=== PATIENT | female | born 1935 | race Caucasian/White ===

== ENCOUNTER 2019-03-09 10:55 | Inpatient (IN) | payer OTHER ==
--- NOTE | 2019-03-09 11:10 | PDOC ---
Attending Attestation - Resident Resident Name: Sandra Boggs - ED Attending Attestation I have performed the following: I have examined & evaluated the patient, The case was reviewed & discussed with the resident, I agree w/resident's findings & plan, Exceptions are as noted - HPI HPI: 03/09/19 12:53 Ms Whaley is an 83 yo F presenting to the ER with family due to unwitnessed fall Pt has a h/o HLD and Dementia (therefore history is per pt daughter and aid) Pt was noted to have a bruise on the forehead She apparently had a fall two days ago (pt is ambulatory and completes ADL's with the assistance of her daily home health aide) Pt was also noted by family to have a facial droop and generalized weakness 03/09/19 13:00 - Physicial Exam PE: 03/09/19 13:01 GENERAL: The patient is sleeping but arousable, answers questions but is intermittently confused, pt is more weak than previously. ENT: Ears normal, nares patent, oropharynx clear without exudates. Moist mucous membranes. NECK: Normal range of motion, supple LUNGS: Breath sounds equal, clear to auscultation bilaterally. No wheezes, and no crackles. HEART:Regular rate and rhythm, normal S1 and S2 without murmur ABDOMEN: Soft, nontender, normoactive bowel sounds. EXTREMITIES: right knee pain NEUROLOGICAL: Pt is arousable, speech is clear and does not sound slurred, moving independently, right leg painful SKIN: no rashes noted - Medical Decision Making 03/09/19 13:25 NSR rate of 96 bpm, LAD, no st elevation or depression, flattened t waves 03/09/19 13:27 Laboratory Tests 03/09/19 03/09/19 03/09/19 11:20 11:20 11:20 WBC 7.0 Hgb 15.1 Hct 46.2 H D Plt Count 196 INR 1.10 H Creatine Kinase 681 H Creatine Kinase Index 0.9 CK-MB (CK-2) 6.7 H Troponin I < 0.02 CT: no acute findings Will plan to admit
--- NOTE | 2019-03-09 11:19 | PDOC ---
History of Present Illness - General Chief Complaint: Lethargy Stated Complaint: LETHARGY Time Seen by Provider: 03/09/19 11:06 - History of Present Illness Initial Comments: 03/09/19 11:32 The patient is an 83 y/o female with a PMHx of HLD and Dementia who presents with daughter and home health aide following a fall. Daughter at beside provides majority of history. States home health aide noticed a bruise on the patient's forehead today and patient subsequently reported she fell on . At baseline patient is ambulatory and completes ADL's with the assistance of her daily home health aide. At baseline patient generally oriented to self and intermittently oriented to time and place. Daughter also notes patient has slurred speech, first noticed on . NKDA Surgical: ? cholecystectomy As per daughter (health care decisionmaker) @ bedside, patient is FULL CODE. Past History - Past Medical History Allergies/Adverse Reactions: Allergies Allergy/AdvReac Type Severity Reaction Status Date / Time No Known Allergies Allergy Verified 03/09/19 11:11 Home Medications: Ambulatory Orders Memantine HCl [Namenda -] 10 mg PO BID 03/09/19 Simvastatin 10 mg PO DAILY 03/09/19 COPD: No Dementia: Yes GI Disorders: Yes (gerd) HTN: Yes Hypercholesterolemia: Yes - Surgical History Cholecystectomy: Yes - Immunization History Immunization Up to Date: Yes - Suicide/Smoking/Psychosocial Hx Smoking History: Never smoked Have you smoked in the past 12 months: No If you are a former smoker, when did you quit?: 50 years ago Hx Alcohol Use: No Drug/Substance Use Hx: No Substance Use Type: None Review of Systems - Review of Systems Able to Perform ROS?: No (clinical condition) *Physical Exam - Vital Signs Last Vital Signs Temp Pulse Resp BP Pulse Ox 97 F L 100 H 18 113/83 100 03/09/19 11:00 03/09/19 11:00 03/09/19 11:00 03/09/19 11:00 03/09/19 11:00 - Physical Exam General Appearance: Yes: Nourished, Appropriately Dressed HEENT: positive: Normal Voice, Hearing Grossly Normal Neck: positive: Trachea midline, Supple Respiratory/Chest: positive: Lungs Clear, Normal Breath Sounds. negative: Labored Respiration, Wheezing Cardiovascular: positive: S1, S2. negative: JVD Vascular Pulses: Dorsalis-Pedis (R): 2+, Doralis-Pedis (L): 2+ Gastrointestinal/Abdominal: positive: Normal Bowel Sounds, Flat Extremity: positive: Normal Capillary Refill, Normal Inspection, Other (Full ROM of B/L UE and LE) Integumentary: positive: Normal Color, Dry, Warm Heart Score/ECG Review - ECG Impressions Comment:: 03/09/19 12:53 NSR HR 96, no GONZALEZ/STD/TWI; flattened T waves in inferior leads + L anterior fasciular block c/w previous ECG dated 06/01/2016 ED Treatment Course - LABORATORY CBC & Chemistry Diagram: 03/09/19 11:20 03/09/19 11:20 - ADDITIONAL ORDERS Additional order review: Laboratory Results 03/09/19 11:13 POC Glucometer 121 03/09/19 11:13 POC Glucometer 121 Medical Decision Making - Medical Decision Making 03/09/19 11:36 83 y/o female s/p unwitnessed fall. Mildly tachycardic (HR 100) other VS unremarkable PE significant for slurred speech (new deficit) - will obtain Head CT to r/o CVA (patient outside window for tPA) also consider infectious, metabolic, cardiac fall etiology. CBC, CMP, Troponin, EKG, UA/Urine Cx. Reassess. 03/09/19 12:[address], C-spine negative ECG shows no acute ischemic change as documented in ECG section of EMR 03/09/19 12:39 CBC, CMP unremarkable UA clean Patient reassessed @ bedside, slurred speech resolved, as per daughter patient @ baseline; c/o RLE pain, patient points to R femur, will obtain R knee, R femur and Hip/Pelvis XR Patient requires admission for further evaluation including possible TIA. Case d /w Dr. Candelario, will admit. *DC/Admit/Observation/Transfer Diagnosis at time of Disposition: Fall - Discharge Dispostion Condition at time of disposition: Fair Decision to Admit order: Yes - Referrals - Patient Instructions - Post Discharge Activity
[2019-03-09 11:31] VITALS: BMI 27.4
--- NOTE | 2019-03-09 11:38 | PDOC ---
NIH Stroke Scale - Last Known Well Date/Time & Onset Date Last Known Well: 03/07/19 - Initial Evaluation Level of consciousness: Alert Ask patient the month and their age: Answers both correctly Ask patient to open & close eyes; make fist and let go: Obeys both correctly Best gaze (horizontal eye movement): Normal Visual field testing: No visual field loss Facial paresis (Show teeth/raise eyebrows/close eyes tight): Normal symmetrical movement Motor Function: Left Arm: Normal Motor Function: Right Arm: Normal (extends arm 90 (or 45) degrees for 10 seconds without drift Motor Function: Left Leg: Normal (extends leg 30 degrees for 5 seconds without drift) Motor Function: Right Leg: Normal (extends leg 30 degrees for 5 seconds without drift) Limb Ataxia: No ataxia Sensory(Use pinprick test arms,legs,trunk,face/side to side): Normal Best language (Describe picture, name items, read sentences): No Aphasia Dysarthria (read several words): Mild to moderate slurring of words Extinction and Inattention: No abnormality - Total Score NIH Stroke Scale Score: 1
[2019-03-09 11:43] LABS: BASO % 0.4 % (0-2.0); EOS % 1.8 % (0-4.5); HEMATOCRIT 46.2 % (32.4-45.2); HEMOGLOBIN 15.1 GM/dL (10.7-15.3); LYMPH % 22.1 % (8-40); MCH 28.3 pg (25.7-33.7); MCHC 32.8 g/dl (32.0-36.0); MEAN CELL VOLUME 86.1 fl (80-96); NEUT % 64.7 % (42.8-82.8); PLATELET COUNT 196 K/MM3 (134-434); RBC 5.36 M/mm3 (3.60-5.2); RDW 15.1 % (11.6-15.6)
[2019-03-09 12:09] LABS: ALBUMIN 3.6 g/dl (3.4-5.0); BILIRUBIN,TOTAL 1.2 mg/dL (0.2-1); BLOOD UREA NITROGEN 15.7 mg/dL (7-18); CREATININE 0.9 mg/dL (0.55-1.3); POTASSIUM 4.5 mmol/L (3.5-5.1); TOT PROT 7.4 g/dl (6.4-8.2)
[2019-03-09 12:13] LABS: INR 1.1 (0.83-1.09)
[2019-03-09 12:15] LABS: ACTIVATED PTT 31.1 SECONDS (25.2-36.5)
[2019-03-09 12:17] LABS: URINE APPEARANCE CLEAR; URINE BILIRUBIN NEGATIVE (NEGATIVE); URINE COLOR YELLOW; URINE GLUCOSE (UA) NEGATIVE (NEGATIVE); URINE KETONE NEGATIVE (NEGATIVE); URINE LEUK ESTERASE NEGATIVE (NEGATIVE); URINE NITRITE NEGATIVE (NEGATIVE); URINE PROTEIN NEGATIVE (NEGATIVE); URINE UROBILINOGEN 0.2 mg/dL (0.2-1.0)
[2019-03-09] MEDS ORDERED: SODIUM CHLORIDE 0.9% 500 ML INFUS.BAG IV ONE (12:38)
[2019-03-09] MEDS ORDERED: morphine CARPU-JECT 2 MG/1 ML DISP.SYRIN IVPUSH ONE (12:46)
[2019-03-09] MEDS ORDERED: MORPHINE SULFATE 2 MG/ML VIAL ONE (13:04)
[2019-03-09] MEDS ORDERED: ROSUVASTATIN CA 10 MG TABLET (FP) PO SCH ×2 (16:00→22:00)
--- NOTE | 2019-03-09 16:06 | HP ---
CHIEF COMPLAINT: fall in home and slurring of speech for one day. PCP:out side of community HISTORY OF PRESENT ILLNESS: The patient is an 83 y/o female with a PMHx of HLD and Dementia who presents with daughter and home health aide following a fall. Daughter at beside provides majority of history. States home health aide noticed a bruise on the patient's forehead today and patient subsequently reported she fell on . At baseline patient is ambulatory and completes ADL's with the assistance of her daily home health aide. In er daughter also c/o that mom is having pain in her rt leg kirit thigh area. No bruise noted. ER course was notable for: (1)h/o fall (2)slurring of speech (3)h/o dementia Recent Travel:none PAST MEDICAL HISTORY: The patient is an 83 y/o female with a PMHx of HLD and Dementia. PAST SURGICAL HISTORY: none Social History: Smoking:none Alcohol:none Drugs: none Allergies No Known Allergies Allergy (Verified 03/09/19 11:11) HOME MEDICATIONS: Home Medications Medication Instructions Recorded Rosuvastatin Calcium [Crestor] 10 mg PO DAILY 08/19/14 Memantine HCl [Namenda -] 10 mg PO DAILY 03/09/19 REVIEW OF SYSTEMS done with daughter. CONSTITUTIONAL: Absent: fever, chills, diaphoresis, generalized weakness, malaise, loss of appetite, weight change HEENT: Absent: rhinorrhea, nasal congestion, throat pain, throat swelling, difficulty swallowing, mouth swelling, ear pain, eye pain, visual changes CARDIOVASCULAR: Absent: chest pain, syncope, palpitations, irregular heart rate, lightheadedness , peripheral edema RESPIRATORY: Absent: cough, shortness of breath, dyspnea with exertion, orthopnea, wheezing, stridor, hemoptysis GASTROINTESTINAL: Absent: abdominal pain, abdominal distension, nausea, vomiting, diarrhea, constipation, melena, hematochezia GENITOURINARY: Absent: dysuria, frequency, urgency, hesitancy, hematuria, flank pain, genital pain MUSCULOSKELETAL: PAIN IN HER RT THIGH AREA. SKIN: Absent: rash, itching, pallor HEMATOLOGIC/IMMUNOLOGIC: Absent: easy bleeding, easy bruising, lymphadenopathy, frequent infections ENDOCRINE: Absent: unexplained weight gain, unexplained weight loss, heat intolerance, cold intolerance NEUROLOGIC: Absent: headache, focal weakness or paresthesias, dizziness, unsteady gait, seizure, mental status changes, bladder or bowel incontinence PSYCHIATRIC: DEMENTIA PHYSICAL EXAMINATION Vital Signs - 24 hr 03/09/19 03/09/19 03/09/19 11:00 11:29 15:44 Temperature 97 F L Pulse Rate 100 H Pulse Rate [ 89 Left Radial] Respiratory 18 18 Rate Blood Pressure 113/83 Blood Pressure 113/70 [Left Arm] O2 Sat by Pulse 100 98 96 Oximetry (%) GENERAL: Awake, alert, and in no acute distress. HEAD: Normal with no signs of trauma. EYES: Pupils equal, round and reactive to light, extraocular movements intact, sclera anicteric, conjunctiva clear. No lid lag. EARS, NOSE, THROAT: Ears normal, nares patent, oropharynx clear without exudates. Moist mucous membranes. NECK: Normal range of motion, supple without lymphadenopathy, JVD, or masses. LUNGS: Breath sounds equal, clear to auscultation bilaterally. No wheezes, and no crackles. No accessory muscle use. HEART: Regular rate and rhythm, normal S1 and S2 without murmur, rub or gallop. ABDOMEN: Soft, nontender, not distended, normoactive bowel sounds, no guarding, no rebound, no masses. No hepatomegaly or splenomegaly. MUSCULOSKELETAL: Normal range of motion at all joints. No bony deformities or tenderness. No CVA tenderness. UPPER EXTREMITIES: 2+ pulses, warm, well-perfused. No cyanosis. No clubbing. No peripheral edema. LOWER EXTREMITIES: 2+ pulses, warm, well-perfused. No calf tenderness. No peripheral edema. NEUROLOGICAL: she is confused but moving all extremities and at time responds by smiling at you. she comprehend the commands by daughter in faroese . Laboratory Results - last 24 hr 03/09/19 03/09/19 03/09/19 11:13 11:20 11:20 WBC 7.0 RBC 5.36 H Hgb 15.1 Hct 46.2 H D MCV 86.1 MCH 28.3 D MCHC 32.8 RDW 15.1 D Plt Count 196 MPV 10.0 Absolute Neuts (auto) 4.5 Neutrophils % 64.7 Lymphocytes % 22.1 Monocytes % 11.0 H Eosinophils % 1.8 Basophils % 0.4 Nucleated RBC % 0 PT with INR INR PTT (Actin FS) Sodium Potassium Chloride Carbon Dioxide Anion Gap BUN Creatinine Est GFR (CKD-EPI)AfAm Est GFR (CKD-EPI)NonAf POC Glucometer 121 Random Glucose Calcium Magnesium Total Bilirubin AST ALT Alkaline Phosphatase Creatine Kinase 681 H Creatine Kinase Index 0.9 CK-MB (CK-2) 6.7 H Troponin I < 0.02 Total Protein Albumin Urine Color Urine Appearance Urine pH Ur Specific [place] Urine Protein Urine Glucose (UA) Urine Ketones Urine Blood Urine Nitrite Urine Bilirubin Urine Urobilinogen Ur Leukocyte Esterase 03/09/19 03/09/19 03/09/19 11:20 11:20 11:20 WBC RBC Hgb Hct MCV MCH MCHC RDW Plt Count MPV Absolute Neuts (auto) Neutrophils % Lymphocytes % Monocytes % Eosinophils % Basophils % Nucleated RBC % PT with INR 13.00 INR 1.10 H PTT (Actin FS) 31.1 Sodium 139 Potassium 4.5 Chloride 106 Carbon Dioxide 27 Anion Gap 6 L BUN 15.7 Creatinine 0.9 Est GFR (CKD-EPI)AfAm 67.57 Est GFR (CKD-EPI)NonAf 58.30 POC Glucometer Random Glucose 107 H Calcium 9.0 Magnesium 2.4 Total Bilirubin 1.2 H AST 48 H ALT 34 Alkaline Phosphatase 74 Creatine Kinase Creatine Kinase Index CK-MB (CK-2) Troponin I Total Protein 7.4 Albumin 3.6 Urine Color Urine Appearance Urine pH Ur Specific [place] Urine Protein Urine Glucose (UA) Urine Ketones Urine Blood Urine Nitrite Urine Bilirubin Urine Urobilinogen Ur Leukocyte Esterase 03/09/19 12:07 WBC RBC Hgb Hct MCV MCH MCHC RDW Plt Count MPV Absolute Neuts (auto) Neutrophils % Lymphocytes % Monocytes % Eosinophils % Basophils % Nucleated RBC % PT with INR INR PTT (Actin FS) Sodium Potassium Chloride Carbon Dioxide Anion Gap BUN Creatinine Est GFR (CKD-EPI)AfAm Est GFR (CKD-EPI)NonAf POC Glucometer Random Glucose Calcium Magnesium Total Bilirubin AST ALT Alkaline Phosphatase Creatine Kinase Creatine Kinase Index CK-MB (CK-2) Troponin I Total Protein Albumin Urine Color Yellow Urine Appearance Clear Urine pH 7.0 Ur Specific [place] 1.012 Urine Protein Negative Urine Glucose (UA) Negative Urine Ketones Negative Urine Blood Negative Urine Nitrite Negative Urine Bilirubin Negative Urine Urobilinogen 0.2 Ur Leukocyte Esterase Negative ASSESSMENT/PLAN: !-Fall in home possible I reviewed all the x rays and no fx noted . since she has pain in her rt thigh area will order venous sono of legs r/odvt. add tylenol prn for pain. ordered physical therapy. d/w daughter for stay in hospital for observations. 2-Altered mental status slurring of speech, she received a dose of morphine in er and that is making difficult to asses her mental status. I have ordered MRI of brain and neuro consult by dr Shell 3-Dementia continue namenda 3- High lipids continue lipitor DVt prohylaxis with loveox and ordered pt consult. Visit type - Emergency Visit Emergency Visit: Yes ED Registration Date: 03/09/19 Care time: The patient presented to the Emergency Department on the above date and was hospitalized for further evaluation of their emergent condition. - New Patient This patient is new to me today: Yes Date on this admission: 03/09/19 - Critical Care Critical Care patient: No
--- NOTE | 2019-03-10 09:13 | PN ---
Teaching Attending Note Name of Resident: Soniya Barbosa ATTENDING PHYSICIAN STATEMENT I saw and evaluated the patient. I reviewed the resident's note and discussed the case with the resident. I agree with the resident's findings and plan as documented. SUBJECTIVE: No new complainyts OBJECTIVE: Vital Signs Period Temp Pulse Resp BP Sys/Paez Pulse Ox Last 24 Hr 97 F-99.0 F 81-106 17-20 105-132/61-88 95-100 Elderly F lethargic conversing with daughter in Romanian HEENT: Mm moist no external trauma NECK: No JVd No Bruit CHEST: CTA B/L CVS: S1S2 R no m/g/r ABD: No distention, non tender Bs + EXT: trace edema, Pulses + BOOKING PRIZER: alert but demented grossly non focal exam CBC, BMP 03/09/19 11:20 03/09/19 11:20 Active Medications Acetaminophen (Tylenol -) 500 mg PO Q6H PRN PRN Reason: PAIN Enoxaparin Sodium (Lovenox -) 40 mg SQ DAILY SANTOSH Memantine (Namenda -) 10 mg PO DAILY SANTOSH Rosuvastatin Calcium (Crestor -) 10 mg PO HS SANTOSH Last Admin: 03/09/19 23:24 Dose: 10 mg ASSESSMENT AND PLAN:83 yrs old F with advanced Dementia, poor GAIT BIB daughter for evaluation of fall and lethargy Problem List - Problems (1) Fall Assessment/Plan: most likely mechanical , considering unwitnessed fall Neurology recommended cardiac w/u F/U Neurology recommondation, PT evaluation Code(s): W19.XXXA - UNSPECIFIED FALL, INITIAL ENCOUNTER (2) Hypercholesterolemia Assessment/Plan: Cont Statin Code(s): E78.0 - PURE HYPERCHOLESTEROLEMIA * DO NOT USE * (3) Dementia Assessment/Plan: No active issue Code(s): F03.90 - UNSPECIFIED DEMENTIA WITHOUT BEHAVIORAL DISTURBANCE (4) Altered mental state Assessment/Plan: Low grade fever , confusion, UA and U culture -ve, initial CBC, BMP are un remarkable, IV NS 100 CC/HR (border line low BP Fever w/u rpt CBC, BMP, CK, Blood cultures IV Hydration If TWBC or clinical sign of sepsis Start empiric Ceftriaxone. Discussed withthe daughter Code(s): R41.82 - ALTERED MENTAL STATUS, UNSPECIFIED
--- NOTE | 2019-03-10 10:47 | CONSULT ---
Consult - text type - Consultation Consultation Note: Neurology HISTORY OF PRESENT ILLNESS: The patient is an 83 y/o female with a PMHx of HLD and Dementia who presents with daughter and home health aide following a fall. Daughter at beside provides majority of history. Stated home health aide noticed a bruise on the patient's forehead on day of admission and patient subsequently reported she fell on . At baseline patient is ambulatory and completes ADL's with the assistance of her daily home health aide. In ER daughter also c/o that mom is having pain in her rt leg kirit thigh area. No bruise noted. Head CT completed , chronic microvascular dieases with no acute gross changes, multilevel degenerative disc disease. Xray of pelvis, knee, and leg completed with no acute changes. Patient on Simvastatin 10mg at home. Somnolent this a.m. but arousable, MRI brain has been ordered and in agreement with this. Awaiting completion of imaging. Physical therapy may be of benefit as well. Recent Travel:none PAST MEDICAL HISTORY: As above PAST SURGICAL HISTORY: none Social History: Smoking:none Alcohol:none Drugs: none Family: HTN Allergies No Known Allergies Allergy (Verified 03/09/19 11:11) HOME MEDICATIONS: Ambulatory Orders Memantine HCl [Namenda -] 10 mg PO BID 03/09/19 Simvastatin 10 mg PO DAILY 03/09/19 REVIEW OF SYSTEMS done with daughter. CONSTITUTIONAL: Absent: fever, chills, diaphoresis, generalized weakness, malaise, loss of appetite, weight change HEENT: Absent: rhinorrhea, nasal congestion, throat pain, throat swelling, difficulty swallowing, mouth swelling, ear pain, eye pain, visual changes CARDIOVASCULAR: Absent: chest pain, syncope, palpitations, irregular heart rate, lightheadedness , peripheral edema RESPIRATORY: Absent: cough, shortness of breath, dyspnea with exertion, orthopnea, wheezing, stridor, hemoptysis GASTROINTESTINAL: Absent: abdominal pain, abdominal distension, nausea, vomiting, diarrhea, constipation, melena, hematochezia GENITOURINARY: Absent: dysuria, frequency, urgency, hesitancy, hematuria, flank pain, genital pain MUSCULOSKELETAL: PAIN IN HER RT THIGH AREA. SKIN: Absent: rash, itching, pallor HEMATOLOGIC/IMMUNOLOGIC: Absent: easy bleeding, easy bruising, lymphadenopathy, frequent infections ENDOCRINE: Absent: unexplained weight gain, unexplained weight loss, heat intolerance, cold intolerance NEUROLOGIC: Absent: headache, focal weakness or paresthesias, dizziness, unsteady gait, seizure, mental status changes, bladder or bowel incontinence PSYCHIATRIC: DEMENTIA PHYSICAL EXAMINATION Vital Signs Period Temp Pulse Resp BP Sys/Paez Pulse Ox Last 24 Hr 97 F-99.0 F 81-106 17-20 105-132/61-88 95-100 GENERAL: Awake, alert, and in no acute distress. HEAD: Normal with no signs of trauma. EYES: Pupils equal, round and reactive to light, extraocular movements intact, sclera anicteric, conjunctiva clear. No lid lag. EARS, NOSE, THROAT: Ears normal, nares patent, oropharynx clear without exudates. Moist mucous membranes. NECK: Normal range of motion, supple without lymphadenopathy, JVD, or masses. LUNGS: Breath sounds equal, clear to auscultation bilaterally. No wheezes, and no crackles. No accessory muscle use. HEART: Regular rate and rhythm, normal S1 and S2 without murmur, rub or gallop. ABDOMEN: Soft, nontender, not distended, normoactive bowel sounds, no guarding, no rebound, no masses. No hepatomegaly or splenomegaly. MUSCULOSKELETAL: Normal range of motion at all joints. No bony deformities or tenderness. No CVA tenderness. UPPER EXTREMITIES: 2+ pulses, warm, well-perfused. No cyanosis. No clubbing. No peripheral edema. LOWER EXTREMITIES: 2+ pulses, warm, well-perfused. No calf tenderness. No peripheral edema. NEUROLOGICAL: she is confused but moving all extremities and at time responds by smiling at you. she comprehend the commands by daughter in indonesian . CBCD WBC 7.0 K/mm3 (4.0-10.0) 03/09/19 11:20 RBC 5.36 M/mm3 (3.60-5.2) H 03/09/19 11:20 Hgb 15.1 GM/dL (10.7-15.3) 03/09/19 11:20 Hct 46.2 % (32.4-45.2) H D 03/09/19 11:20 MCV 86.1 fl (80-96) 03/09/19 11:20 MCHC 32.8 g/dl (32.0-36.0) 03/09/19 11:20 RDW 15.1 % (11.6-15.6) D 03/09/19 11:20 Plt Count 196 K/MM3 (134-434) 03/09/19 11:20 MPV 10.0 fl (7.5-11.1) 03/09/19 11:20 CMP Sodium 139 mmol/L (136-145) 03/09/19 11:20 Potassium 4.5 mmol/L (3.5-5.1) 03/09/19 11:20 Chloride 106 mmol/L (98-107) 03/09/19 11:20 Carbon Dioxide 27 mmol/L (21-32) 03/09/19 11:20 Anion Gap 6 MMOL/L (8-16) L 03/09/19 11:20 BUN 15.7 mg/dL (7-18) 03/09/19 11:20 Creatinine 0.9 mg/dL (0.55-1.3) 03/09/19 11:20 Random Glucose 107 mg/dL (74-106) H 03/09/19 11:20 Calcium 9.0 mg/dL (8.5-10.1) 03/09/19 11:20 Total Bilirubin 1.2 mg/dL (0.2-1) H 03/09/19 11:20 AST 48 U/L (15-37) H 03/09/19 11:20 ALT 34 U/L (13-61) 03/09/19 11:20 Alkaline Phosphatase 74 U/L (45-117) 03/09/19 11:20 Total Protein 7.4 g/dl (6.4-8.2) 03/09/19 11:20 Albumin 3.6 g/dl (3.4-5.0) 03/09/19 11:20 CARDIAC ENZYMES Creatine Kinase 681 U/L (26-192) H 03/09/19 11:20 Troponin I < 0.02 ng/ml (0.00-0.05) 03/09/19 11:20 ASSESSMENT/PLAN: The patient is an 83 y/o female with a PMHx of HLD and Dementia who presents with daughter and home health aide following a fall. Daughter at beside provides majority of history. Stated home health aide noticed a bruise on the patient's forehead on day of admission and patient subsequently reported she fell on . At baseline patient is ambulatory and completes ADL's with the assistance of her daily home health aide. In ER daughter also c/o that mom is having pain in her rt leg kirit thigh area. No bruise noted. Head CT completed , chronic microvascular dieases with no acute gross changes, multilevel degenerative disc disease. Xray of pelvis, knee, and leg completed with no acute changes. Patient on Simvastatin 10mg at home. Somnolent this a.m. but arousable, MRI brain has been ordered and in agreement with this. Awaiting completion of imaging. Physical therapy may be of benefit as well. can continue memantine 10 mg twice a day as prescribed at home. Cardiac workup should be considered. Fall precautions. DVT prophylaxis.
[2019-03-10] MEDS: MEMANTINE HCL 10 MG TABLET (FP) PO SCH (12:47)
[2019-03-10] MEDS: ENOXAPARIN NA (PORCINE) 40 MG/0.4 ML DISP.SYRIN SQ SCH (12:48)
--- NOTE | 2019-03-10 14:00 | PN ---
Physical Exam: SUBJECTIVE: Patient seen and examined this AM. No new complaints. No acute events overnight. OBJECTIVE: Vital Signs Period Temp Pulse Resp BP Sys/Paez Pulse Ox Last 24 Hr 97.8 F-99.0 F 81-106 17-18 105-132/61-88 95-99 GENERAL: Awake, NAD HEAD: NCAT EYES: PERRL, EOMI ENT: moist mucous membranes. NECK: Supple LUNGS: clear to auscultation bilaterally, no wheezes, no crackles HEART: Regular rate and rhythm, S1, S2 without murmur ABDOMEN: Soft, nontender, nondistended, + bowel sounds, no guarding, no rebound EXTREMITIES: no edema. NEUROLOGICAL: Cranial nerves II through XII grossly intact. SKIN: Warm, dry Laboratory Last Values WBC 7.0 K/mm3 (4.0-10.0) 03/09/19 11:20 RBC 5.36 M/mm3 (3.60-5.2) H 03/09/19 11:20 Hgb 15.1 GM/dL (10.7-15.3) 03/09/19 11:20 Hct 46.2 % (32.4-45.2) H D 03/09/19 11:20 MCV 86.1 fl (80-96) 03/09/19 11:20 MCH 28.3 pg (25.7-33.7) D 03/09/19 11:20 MCHC 32.8 g/dl (32.0-36.0) 03/09/19 11:20 RDW 15.1 % (11.6-15.6) D 03/09/19 11:20 Plt Count 196 K/MM3 (134-434) 03/09/19 11:20 MPV 10.0 fl (7.5-11.1) 03/09/19 11:20 Absolute Neuts (auto) 4.5 K/mm3 (1.5-8.0) 03/09/19 11:20 Neutrophils % 64.7 % (42.8-82.8) 03/09/19 11:20 Lymphocytes % 22.1 % (8-40) 03/09/19 11:20 Monocytes % 11.0 % (3.8-10.2) H 03/09/19 11:20 Eosinophils % 1.8 % (0-4.5) 03/09/19 11:20 Basophils % 0.4 % (0-2.0) 03/09/19 11:20 Nucleated RBC % 0 % (0-0) 03/09/19 11:20 PT with INR 13.00 SEC (9.7-13.0) 03/09/19 11:20 INR 1.10 (0.83-1.09) H 03/09/19 11:20 PTT (Actin FS) 31.1 SECONDS (25.2-36.5) 03/09/19 11:20 Sodium 139 mmol/L (136-145) 03/09/19 11:20 Potassium 4.5 mmol/L (3.5-5.1) 03/09/19 11:20 Chloride 106 mmol/L (98-107) 03/09/19 11:20 Carbon Dioxide 27 mmol/L (21-32) 03/09/19 11:20 Anion Gap 6 MMOL/L (8-16) L 03/09/19 11:20 BUN 15.7 mg/dL (7-18) 03/09/19 11:20 Creatinine 0.9 mg/dL (0.55-1.3) 03/09/19 11:20 Est GFR (CKD-EPI)AfAm 67.57 03/09/19 11:20 Est GFR (CKD-EPI)NonAf 58.30 03/09/19 11:20 POC Glucometer 121 UNITS (80-120) 03/09/19 11:13 Random Glucose 107 mg/dL (74-106) H 03/09/19 11:20 Calcium 9.0 mg/dL (8.5-10.1) 03/09/19 11:20 Magnesium 2.4 mg/dL (1.8-2.4) 03/09/19 11:20 Total Bilirubin 1.2 mg/dL (0.2-1) H 03/09/19 11:20 AST 48 U/L (15-37) H 03/09/19 11:20 ALT 34 U/L (13-61) 03/09/19 11:20 Alkaline Phosphatase 74 U/L (45-117) 03/09/19 11:20 Creatine Kinase 681 U/L (26-192) H 03/09/19 11:20 Creatine Kinase Index 0.9 % (0.0-5.0) 03/09/19 11:20 CK-MB (CK-2) 6.7 ng/mL (0.5-3.6) H 03/09/19 11:20 Troponin I < 0.02 ng/ml (0.00-0.05) 03/09/19 11:20 Total Protein 7.4 g/dl (6.4-8.2) 03/09/19 11:20 Albumin 3.6 g/dl (3.4-5.0) 03/09/19 11:20 Urine Color Yellow 03/09/19 12:07 Urine Appearance Clear 03/09/19 12:07 Urine pH 7.0 (5.0-8.0) 03/09/19 12:07 Ur Specific Scribner 1.012 (1.010-1.035) 03/09/19 12:07 Urine Protein Negative (NEGATIVE) 03/09/19 12:07 Urine Glucose (UA) Negative (NEGATIVE) 03/09/19 12:07 Urine Ketones Negative (NEGATIVE) 03/09/19 12:07 Urine Blood Negative (NEGATIVE) 03/09/19 12:07 Urine Nitrite Negative (NEGATIVE) 03/09/19 12:07 Urine Bilirubin Negative (NEGATIVE) 03/09/19 12:07 Urine Urobilinogen 0.2 mg/dL (0.2-1.0) 03/09/19 12:07 Ur Leukocyte Esterase Negative (NEGATIVE) 03/09/19 12:07 Microbiology 03/09/19 12:07 Urine - Urine - Catheterized Urine Culture - Final NO GROWTH OBTAINED Active Medications Acetaminophen (Tylenol -) 500 mg PO Q6H PRN PRN Reason: PAIN Enoxaparin Sodium (Lovenox -) 40 mg SQ DAILY [facility] Last Admin: 03/10/19 12:48 Dose: 40 mg Memantine (Namenda -) 10 mg PO DAILY [facility] Last Admin: 03/10/19 12:47 Dose: 10 mg Rosuvastatin Calcium (Crestor -) 10 mg PO HS [facility] Last Admin: 03/09/19 23:24 Dose: 10 mg ASSESSMENT/PLAN: 83 y/o F with PMHx of HLD and Dementia presents after a fall. #Unwitnessed Fall -Likely mechanical -Imaging noted does not reveal any fx; RLE DUPLEX negative for DVT -Fall/Seizure precautions -Physical therapy -Analgesia via Acetaminophen -Check Orthostatics #Dementia -As per EMR, patient also presented with AMS + Speech slurring -Brain MRI without contrast pending -Neurology (Dr. Shell) consulted, appreciate rec's -Continue home dose Memantine #Dyslipidemia -Statin #FEN -No standing fluids -Replete lytes PRN -Soft diet #PPx -DVT: Lovenox Visit type - Emergency Visit Emergency Visit: Yes ED Registration Date: 03/09/19 Care time: The patient presented to the Emergency Department on the above date and was hospitalized for further evaluation of their emergent condition. - New Patient This patient is new to me today: Yes Date on this admission: 03/10/19 - Critical Care Critical Care patient: No ATTENDING PHYSICIAN STATEMENT I saw and evaluated the patient. I reviewed the resident's note and discussed the case with the resident. I agree with the resident's findings and plan as documented. SUBJECTIVE: OBJECTIVE: ASSESSMENT AND PLAN:
[2019-03-10] MEDS ORDERED: DEXTROSE 5%-WATER - 50 ML IVPB ONE (17:27)
[2019-03-10] MEDS ORDERED: cefTRIAXone SODIUM 1 GM VIAL ONE (17:27)
[2019-03-10] MEDS: SODIUM CHLORIDE 1,000 ML IV SCH (17:37)
[2019-03-10] MEDS: CEFTRIAXONE 1 GM in DEXTROSE 5%-WATER - 50 ML IVPB SCH (17:39)
[2019-03-10 18:34] LABS: BASO % 0.2 % (0-2.0); EOS % 0.2 % (0-4.5); HEMATOCRIT 44.4 % (32.4-45.2); HEMOGLOBIN 14.5 GM/dL (10.7-15.3); LYMPH % 16.7 % (8-40); MCHC 32.6 g/dl (32.0-36.0); MEAN CELL VOLUME 85.8 fl (80-96); MEAN PLT VOLUME 10.4 fl (7.5-11.1); MONO % 11.1 % (3.8-10.2); NEUT % 71.8 % (42.8-82.8); PLATELET COUNT 195 K/MM3 (134-434); RBC 5.17 M/mm3 (3.60-5.2); RDW 15.2 % (11.6-15.6); WHITE BLOOD COUNT 10.2 K/mm3 (4.0-10.0)
[2019-03-10 19:02] LABS: ALBUMIN 3.4 g/dl (3.4-5.0); BILIRUBIN,TOTAL 0.9 mg/dL (0.2-1); BLOOD UREA NITROGEN 22.9 mg/dL (7-18); CALCIUM 9.2 mg/dL (8.5-10.1); CREATININE 1.1 mg/dL (0.55-1.3); MAGNESIUM 2.4 mg/dL (1.8-2.4); PHOSPHOROUS 3.1 mg/dL (2.5-4.9); POTASSIUM 4.1 mmol/L (3.5-5.1); TOT PROT 6.9 g/dl (6.4-8.2)
--- NOTE | 2019-03-11 09:07 | PN ---
Progress Note (short form) - Note Progress Note: Neurology HISTORY OF PRESENT ILLNESS: The patient is an 83 y/o female with a PMHx of HLD and Dementia who presents with daughter and home health aide following a fall. Daughter at beside provides majority of history. Stated home health aide noticed a bruise on the patient's forehead on day of admission and patient subsequently reported she fell on . At baseline patient is ambulatory and completes ADL's with the assistance of her daily home health aide. In ER daughter also c/o that mom is having pain in her rt leg kirit thigh area. No bruise noted. Head CT completed , chronic microvascular dieases with no acute gross changes, multilevel degenerative disc disease. Xray of pelvis, knee, and leg completed with no acute changes. Patient on Simvastatin 10mg at home. Somnolent again this a.m. but arousable, MRI brain has been ordered and in agreement with this. Awaiting completion of imaging. Physical therapy may be of benefit as well. spoke to daughter in detail on the phone yesterday and explained results of CAT scan as well as patient's clinical condition. Daughter well aware of patient's dementia. Spoke with nurse this morning and MRI brain not yet completed, nurse indicated daughter was concerned about patient being claustrophobic. Can be given a very low dose of Ativan if needed. Allergies No Known Allergies Allergy (Verified 03/09/19 11:11) Active Medications Acetaminophen (Tylenol -) 500 mg PO Q6H PRN PRN Reason: PAIN Enoxaparin Sodium (Lovenox -) 40 mg SQ DAILY [facility] Last Admin: 03/10/19 12:48 Dose: 40 mg Ceftriaxone Sodium 1 gm/ (Dextrose) 50 mls @ 100 mls/hr IVPB DAILY [facility]; Protocol Last Admin: 03/10/19 17:39 Dose: 100 mls/hr Sodium Chloride (Normal Saline -) 1,000 mls @ 100 mls/hr IV [facility] Last Admin: 03/10/19 17:37 Dose: 100 mls/hr Memantine (Namenda -) 10 mg PO DAILY [facility] Last Admin: 03/10/19 12:47 Dose: 10 mg PHYSICAL EXAMINATION Vital Signs Period Temp Pulse Resp BP Sys/Paez Pulse Ox Last 24 Hr 97.8 F-100.0 F 98-110 16-18 92-130/42-76 GENERAL: Awake, alert, and in no acute distress. HEAD: Normal with no signs of trauma. EYES: Pupils equal, round and reactive to light, extraocular movements intact, sclera anicteric, conjunctiva clear. No lid lag. EARS, NOSE, THROAT: Ears normal, nares patent, oropharynx clear without exudates. Moist mucous membranes. NECK: Normal range of motion, supple without lymphadenopathy, JVD, or masses. LUNGS: Breath sounds equal, clear to auscultation bilaterally. No wheezes, and no crackles. No accessory muscle use. HEART: Regular rate and rhythm, normal S1 and S2 without murmur, rub or gallop. ABDOMEN: Soft, nontender, not distended, normoactive bowel sounds, no guarding, no rebound, no masses. No hepatomegaly or splenomegaly. MUSCULOSKELETAL: Normal range of motion at all joints. No bony deformities or tenderness. No CVA tenderness. UPPER EXTREMITIES: 2+ pulses, warm, well-perfused. No cyanosis. No clubbing. No peripheral edema. LOWER EXTREMITIES: 2+ pulses, warm, well-perfused. No calf tenderness. No peripheral edema. NEUROLOGICAL: she is confused but moving all extremities and at time responds by smiling at you. she comprehend the commands by daughter in pashto . CBCD WBC 10.2 K/mm3 (4.0-10.0) H 03/10/19 17:32 RBC 5.17 M/mm3 (3.60-5.2) 03/10/19 17:32 Hgb 14.5 GM/dL (10.7-15.3) 03/10/19 17:32 Hct 44.4 % (32.4-45.2) 03/10/19 17:32 MCV 85.8 fl (80-96) 03/10/19 17:32 MCHC 32.6 g/dl (32.0-36.0) 03/10/19 17:32 RDW 15.2 % (11.6-15.6) 03/10/19 17:32 Plt Count 195 K/MM3 (134-434) 03/10/19 17:32 MPV 10.4 fl (7.5-11.1) 03/10/19 17:32 CMP Sodium 142 mmol/L (136-145) 03/10/19 17:32 Potassium 4.1 mmol/L (3.5-5.1) 03/10/19 17:32 Chloride 108 mmol/L (98-107) H 03/10/19 17:32 Carbon Dioxide 22 mmol/L (21-32) 03/10/19 17:32 Anion Gap 11 MMOL/L (8-16) 03/10/19 17:32 BUN 22.9 mg/dL (7-18) H 03/10/19 17:32 Creatinine 1.1 mg/dL (0.55-1.3) 03/10/19 17:32 Random Glucose 105 mg/dL (74-106) 03/10/19 17:32 Calcium 9.2 mg/dL (8.5-10.1) 03/10/19 17:32 Total Bilirubin 0.9 mg/dL (0.2-1) 03/10/19 17:32 AST 42 U/L (15-37) H 03/10/19 17:32 ALT 34 U/L (13-61) 03/10/19 17:32 Alkaline Phosphatase 74 U/L (45-117) 03/10/19 17:32 Total Protein 6.9 g/dl (6.4-8.2) 03/10/19 17:32 Albumin 3.4 g/dl (3.4-5.0) 03/10/19 17:32 CARDIAC ENZYMES Creatine Kinase 951 U/L (26-192) H 03/10/19 17:32 Troponin I < 0.02 ng/ml (0.00-0.05) 03/09/19 11:20 ASSESSMENT/PLAN: 83 y/o female with a PMHx of HLD and Dementia who presents with daughter and home health aide following a fall. Daughter at beside provides majority of history. Stated home health aide noticed a bruise on the patient's forehead on day of admission and patient subsequently reported she fell on . At baseline patient is ambulatory and completes ADL's with the assistance of her daily home health aide. In ER daughter also c/o that mom is having pain in her rt leg kirit thigh area. No bruise noted. Head CT completed, chronic microvascular dieases with no acute gross changes, multilevel degenerative disc disease. Xray of pelvis, knee, and leg completed with no acute changes. Patient on Simvastatin 10mg at home. Somnolent again this a.m. but arousable, MRI brain has been ordered and in agreement with this. Awaiting completion of imaging. Physical therapy may be of benefit as well. spoke to daughter in detail on the phone yesterday and explained results of CAT scan as well as patient's clinical condition. Daughter well aware of patient's dementia. Spoke with nurse this morning and MRI brain not yet completed, nurse indicated daughter was concerned about patient being claustrophobic. Can be given a very low dose of Ativan if needed. Physical therapy may be of benefit as well. can continue memantine 10 mg twice a day as prescribed at home. Cardiac workup should be considered. Fall precautions. DVT prophylaxis.
--- NOTE | 2019-03-11 10:42 | PN ---
Teaching Attending Note Name of Resident: Ryan Baig ATTENDING PHYSICIAN STATEMENT I saw and evaluated the patient. I reviewed the resident's note and discussed the case with the resident. I agree with the resident's findings and plan as documented. SUBJECTIVE: Patient has no complaints. OBJECTIVE: Vital Signs Period Temp Pulse Resp BP Sys/Paez Pulse Ox Last 24 Hr 97.8 F-100.0 F 98-110 16-18 92-130/42-76 HEART: S1S2, RRR LUNGS: Clear ABDOMEN: Soft, non-tender, non-distended, normal BS EXTREMITIES: No edema Laboratory Results - last 24 hr 03/10/19 03/10/19 17:32 17:32 WBC 10.2 H RBC 5.17 Hgb 14.5 Hct 44.4 MCV 85.8 MCH 28.0 MCHC 32.6 RDW 15.2 Plt Count 195 MPV 10.4 Absolute Neuts (auto) 7.3 Neutrophils % 71.8 Lymphocytes % 16.7 D Monocytes % 11.1 H Eosinophils % 0.2 D Basophils % 0.2 Nucleated RBC % 0 Sodium 142 Potassium 4.1 Chloride 108 H Carbon Dioxide 22 Anion Gap 11 BUN 22.9 H Creatinine 1.1 Est GFR (CKD-EPI)AfAm 53.02 Est GFR (CKD-EPI)NonAf 45.74 Random Glucose 105 Calcium 9.2 Phosphorus 3.1 Magnesium 2.4 Total Bilirubin 0.9 AST 42 H ALT 34 Alkaline Phosphatase 74 Creatine Kinase 951 H Creatine Kinase Index 0.5 CK-MB (CK-2) 5.6 H Total Protein 6.9 Albumin 3.4 Current Medications Generic Name Dose Route Start Last Admin Trade Name Freq PRN Reason Stop Dose Admin Acetaminophen 500 mg 03/09/19 15:52 Tylenol - PO Q6H PRN PAIN Enoxaparin Sodium 40 mg 03/10/19 10:00 03/10/19 12:48 Lovenox - SQ 40 mg DAILY [facility] Administration Ceftriaxone Sodium 1 gm/ 50 mls @ 100 mls/hr 03/10/19 16:30 03/10/19 17:39 Dextrose IVPB 100 mls/hr DAILY [facility] Administration Protocol Sodium Chloride 1,000 mls @ 100 mls/hr 03/10/19 16:45 03/10/19 17:37 Normal Saline - IV 100 mls/hr [facility] Administration Memantine 10 mg 03/10/19 10:00 03/10/19 12:47 Namenda - PO 10 mg DAILY [facility] Administration ASSESSMENT AND PLAN: This is an 83 year old woman with a history of hyperlipidemia, dementia who presented to the ED after a fall. 1. Acute metabolic encephalopathy secondary to possible sepsis/pneumonia - Patient is currently at baseline - No evidence of UTI, bacteremia - Patient had temp 100.0 yesterday, WBC 10.2 today, tachycardia, left base atelectasis on CXR - Continue empiric ceftriaxone - Repeat CXR in AM 2. s/p fall - PT evaluation 3. Hyperlipidemia 4. Dementia - Continue Namenda
[2019-03-11] MEDS ORDERED: DEXTROSE 5%-WATER - 50 ML IVPB ONE (11:02)
[2019-03-11] MEDS ORDERED: cefTRIAXone SODIUM 1 GM VIAL ONE (11:02)
[2019-03-11] MEDS: ENOXAPARIN NA (PORCINE) 40 MG/0.4 ML DISP.SYRIN SQ SCH (11:06)
[2019-03-11] MEDS: CEFTRIAXONE 1 GM in DEXTROSE 5%-WATER - 50 ML IVPB SCH (11:08)
[2019-03-11] MEDS: MEMANTINE HCL 10 MG TABLET (FP) PO SCH (12:32)
--- NOTE | 2019-03-11 17:06 | PN ---
Physical Exam: SUBJECTIVE: Patient seen and examined. NAEON. OBJECTIVE: Vital Signs Period Temp Pulse Resp BP Sys/Paez Pulse Ox Last 24 Hr 97.8 F-99.5 F 98-103 16-18 117-124/42-66 GENERAL: Awake, NAD HEAD: NCAT EYES: PERRL, EOMI ENT: moist mucous membranes. NECK: Supple LUNGS: clear to auscultation bilaterally, no wheezes, no crackles HEART: Regular rate and rhythm, S1, S2 without murmur ABDOMEN: Soft, nontender, nondistended, + bowel sounds, no guarding, no rebound EXTREMITIES: no edema. NEUROLOGICAL: Cranial nerves II through XII grossly intact. SKIN: Warm, dry Laboratory Results - last 24 hr 03/10/19 03/10/19 17:32 17:32 WBC 10.2 H RBC 5.17 Hgb 14.5 Hct 44.4 MCV 85.8 MCH 28.0 MCHC 32.6 RDW 15.2 Plt Count 195 MPV 10.4 Absolute Neuts (auto) 7.3 Neutrophils % 71.8 Lymphocytes % 16.7 D Monocytes % 11.1 H Eosinophils % 0.2 D Basophils % 0.2 Nucleated RBC % 0 Sodium 142 Potassium 4.1 Chloride 108 H Carbon Dioxide 22 Anion Gap 11 BUN 22.9 H Creatinine 1.1 Est GFR (CKD-EPI)AfAm 53.02 Est GFR (CKD-EPI)NonAf 45.74 Random Glucose 105 Calcium 9.2 Phosphorus 3.1 Magnesium 2.4 Total Bilirubin 0.9 AST 42 H ALT 34 Alkaline Phosphatase 74 Creatine Kinase 951 H Creatine Kinase Index 0.5 CK-MB (CK-2) 5.6 H Total Protein 6.9 Albumin 3.4 Active Medications Generic Name Dose Route Start Last Admin Trade Name Freq PRN Reason Stop Dose Admin Acetaminophen 500 mg 03/09/19 15:52 Tylenol - PO Q6H PRN PAIN Enoxaparin Sodium 40 mg 03/10/19 10:00 03/11/19 11:06 Lovenox - SQ 40 mg DAILY [facility] Administration Ceftriaxone Sodium 1 gm/ 50 mls @ 100 mls/hr 03/10/19 16:30 03/11/19 11:08 Dextrose IVPB 100 mls/hr DAILY [facility] Administration Protocol Sodium Chloride 1,000 mls @ 100 mls/hr 03/10/19 16:45 03/10/19 17:37 Normal Saline - IV 100 mls/hr [facility] Administration Memantine 10 mg 03/10/19 10:00 03/11/19 12:32 Namenda - PO 10 mg DAILY [facility] Administration Vital Signs Temp 98.8 F 03/11/19 14:05 Pulse 103 H 03/11/19 14:05 Resp 18 03/11/19 14:05 BP 119/66 03/11/19 14:05 Pulse Ox 95 03/09/19 23:18 Intake & Output 03/10/19 03/11/19 03/11/19 23:59 11:59 23:59 Intake Total 700 Balance 700 Intake: IV 300 Normal Saline - 1,000 ml 300 @ 100 mls/hr IV [facility] Rx#:[id number] Oral 400 Other: Voiding Method Diaper Diaper # Unmeasured Voids Void 2 1 Bowel Movement No Yes # Bowel Movements 2 ASSESSMENT/PLAN: 83 y/o F with PMHx of HLD and Dementia presents after a fall. #Unwitnessed Fall -Likely mechanical -Imaging noted does not reveal any fx; RLE DUPLEX negative for DVT -Fall/Seizure precautions -Physical therapy -Analgesia via Acetaminophen -Check Orthostatics #Dementia -As per EMR, patient also presented with AMS + Speech slurring -Brain MRI without contrast pending -Neurology (Dr. Shell) consulted, appreciate rec's: --MRI, with lose-dose Ativan if necessary -- Ativan 0.5mg once PRN if agitated --PT --cw memantine 10mg BID --consider cardio w/u -Continue home dose Memantine #Dyslipidemia -Statin #FEN -No standing fluids -Replete lytes PRN -Soft diet #PPx -DVT: Lovenox Visit type - Emergency Visit Emergency Visit: No - New Patient This patient is new to me today: Yes Date on this admission: 03/09/19 - Critical Care Critical Care patient: No ATTENDING PHYSICIAN STATEMENT I saw and evaluated the patient. I reviewed the resident's note and discussed the case with the resident. I agree with the resident's findings and plan as documented. SUBJECTIVE: OBJECTIVE: ASSESSMENT AND PLAN:
--- NOTE | 2019-03-11 18:24 | EKG ---
Test Reason : Blood Pressure : / mmHG Vent. Rate : 096 BPM Atrial Rate : 096 BPM P-R Int : 148 ms QRS Dur : 076 ms QT Int : 378 ms P-R-T Axes : 016 -48 033 degrees QTc Int : 477 ms NORMAL SINUS RHYTHM LEFT ANTERIOR FASCICULAR BLOCK CANNOT RULE OUT INFERIOR INFARCT (MASKED BY FASCICULAR BLOCK?) , AGE UNDETERMINED ABNORMAL ECG WHEN COMPARED WITH ECG OF 02-JAN-2010 12:41, NO SIGNIFICANT CHANGE WAS FOUND Confirmed by MIRYAM ANTONIO MD ([id number]) on 03/11/2019 6:24:22 PM Referred By: Confirmed By:MIRYAM ANTONIO MD
[2019-03-11] MEDS: SODIUM CHLORIDE 1,000 ML IV SCH (18:55)
[2019-03-11] MEDS: ACETAMINOPHEN 500 MG TABLET (FP) PO PRN (19:03)
[2019-03-11] MEDS ORDERED: LORazepam 2 MG/ML SDV VIAL IM ONE (19:45)
[2019-03-12] MEDS: SODIUM CHLORIDE 1,000 ML IV SCH ×3 (02:33→18:40)
--- NOTE | 2019-03-12 08:22 | PN ---
Progress Note (short form) - Note Progress Note: Neurology HISTORY OF PRESENT ILLNESS: The patient is an 83 y/o female with a PMHx of HLD and Dementia who presents with daughter and home health aide following a fall. Daughter at beside provides majority of history. Stated home health aide noticed a bruise on the patient's forehead on day of admission and patient subsequently reported she fell on . At baseline patient is ambulatory and completes ADL's with the assistance of her daily home health aide. In ER daughter also c/o that mom is having pain in her rt leg kirit thigh area. No bruise noted. Head CT completed , chronic microvascular dieases with no acute gross changes, multilevel degenerative disc disease. Xray of pelvis, knee, and leg completed with no acute changes. Patient on Simvastatin 10mg at home. Somnolent again this a.m. but arousable, MRI brain has been ordered and in agreement with this. Awaiting completion of imaging. Physical therapy may be of benefit as well. Spoke to daughter previously in detail on the phone and explained results of CAT scan as well as patient's clinical condition. Daughter well aware of patient's dementia. Spoke with nurse this morning and MRI brain not yet completed, discussed with nurse and she will be reaching out to the radiology department for imaging. The patient does appear more awake and alert and interactive with me this morning. Smiling and does not report significant complaints. Allergies No Known Allergies Allergy (Verified 03/09/19 11:11) Active Medications Acetaminophen (Tylenol -) 500 mg PO Q6H PRN PRN Reason: PAIN Last Admin: 03/11/19 19:03 Dose: 500 mg Enoxaparin Sodium (Lovenox -) 40 mg SQ DAILY [facility] Last Admin: 03/11/19 11:06 Dose: 40 mg Ceftriaxone Sodium 1 gm/ (Dextrose) 50 mls @ 100 mls/hr IVPB DAILY [facility]; Protocol Last Admin: 03/11/19 11:08 Dose: 100 mls/hr Sodium Chloride (Normal Saline -) 1,000 mls @ 100 mls/hr IV [facility] Last Admin: 03/12/19 02:33 Dose: 100 mls/hr Memantine (Namenda -) 10 mg PO DAILY [facility] Last Admin: 03/11/19 12:32 Dose: 10 mg PHYSICAL EXAMINATION Vital Signs Period Temp Pulse Resp BP Sys/Paez Pulse Ox Last 24 Hr 98.8 F-98.9 F 89-103 18-20 104-119/62-70 GENERAL: Awake, alert, and in no acute distress. HEAD: Normal with no signs of trauma. EYES: Pupils equal, round and reactive to light, extraocular movements intact, sclera anicteric, conjunctiva clear. No lid lag. EARS, NOSE, THROAT: Ears normal, nares patent, oropharynx clear without exudates. Moist mucous membranes. NECK: Normal range of motion, supple without lymphadenopathy, JVD, or masses. LUNGS: Breath sounds equal, clear to auscultation bilaterally. No wheezes, and no crackles. No accessory muscle use. HEART: Regular rate and rhythm, normal S1 and S2 without murmur, rub or gallop. ABDOMEN: Soft, nontender, not distended, normoactive bowel sounds, no guarding, no rebound, no masses. No hepatomegaly or splenomegaly. MUSCULOSKELETAL: Normal range of motion at all joints. No bony deformities or tenderness. No CVA tenderness. UPPER EXTREMITIES: 2+ pulses, warm, well-perfused. No cyanosis. No clubbing. No peripheral edema. LOWER EXTREMITIES: 2+ pulses, warm, well-perfused. No calf tenderness. No peripheral edema. NEUROLOGICAL: she is confused but moving all extremities and at time responds by smiling at you. she comprehend the commands by daughter in greenlandic . CBCD WBC 10.2 K/mm3 (4.0-10.0) H 03/10/19 17:32 RBC 5.17 M/mm3 (3.60-5.2) 03/10/19 17:32 Hgb 14.5 GM/dL (10.7-15.3) 03/10/19 17:32 Hct 44.4 % (32.4-45.2) 03/10/19 17:32 MCV 85.8 fl (80-96) 03/10/19 17:32 MCHC 32.6 g/dl (32.0-36.0) 03/10/19 17:32 RDW 15.2 % (11.6-15.6) 03/10/19 17:32 Plt Count 195 K/MM3 (134-434) 03/10/19 17:32 MPV 10.4 fl (7.5-11.1) 03/10/19 17:32 CMP Sodium 142 mmol/L (136-145) 03/10/19 17:32 Potassium 4.1 mmol/L (3.5-5.1) 03/10/19 17:32 Chloride 108 mmol/L (98-107) H 03/10/19 17:32 Carbon Dioxide 22 mmol/L (21-32) 03/10/19 17:32 Anion Gap 11 MMOL/L (8-16) 03/10/19 17:32 BUN 22.9 mg/dL (7-18) H 03/10/19 17:32 Creatinine 1.1 mg/dL (0.55-1.3) 03/10/19 17:32 Random Glucose 105 mg/dL (74-106) 03/10/19 17:32 Calcium 9.2 mg/dL (8.5-10.1) 03/10/19 17:32 Total Bilirubin 0.9 mg/dL (0.2-1) 03/10/19 17:32 AST 42 U/L (15-37) H 03/10/19 17:32 ALT 34 U/L (13-61) 03/10/19 17:32 Alkaline Phosphatase 74 U/L (45-117) 03/10/19 17:32 Total Protein 6.9 g/dl (6.4-8.2) 03/10/19 17:32 Albumin 3.4 g/dl (3.4-5.0) 03/10/19 17:32 CARDIAC ENZYMES Creatine Kinase 951 U/L (26-192) H 03/10/19 17:32 Troponin I < 0.02 ng/ml (0.00-0.05) 03/09/19 11:20 ASSESSMENT/PLAN: 83 y/o female with a PMHx of HLD and Dementia who presents with daughter and home health aide following a fall. Daughter at beside provides majority of history. Stated home health aide noticed a bruise on the patient's forehead on day of admission and patient subsequently reported she fell on . At baseline patient is ambulatory and completes ADL's with the assistance of her daily home health aide. In ER daughter also c/o that mom is having pain in her rt leg kirit thigh area. No bruise noted. Head CT completed, chronic microvascular dieases with no acute gross changes, multilevel degenerative disc disease. Xray of pelvis, knee, and leg completed with no acute changes. Patient on Simvastatin 10mg at home. Somnolent again this a.m. but arousable, MRI brain has been ordered and in agreement with this. Awaiting completion of imaging. Physical therapy may be of benefit as well. spoke to daughter in detail on the phone yesterday and explained results of CAT scan as well as patient's clinical condition. Daughter well aware of patient's dementia. Spoke to daughter previously in detail on the phone and explained results of CAT scan as well as patient's clinical condition. Daughter well aware of patient's dementia. Spoke with nurse this morning and MRI brain not yet completed, discussed with nurse and she will be reaching out to the radiology department for imaging. The patient does appear more awake and alert and interactive with me this morning. Smiling and does not report significant complaints. Physical therapy may be of benefit as well. can continue memantine 10 mg twice a day as prescribed at home. Cardiac workup should be considered. Fall precautions. DVT prophylaxis.
[2019-03-12 09:35] LABS: BASO % 0.4 % (0-2.0); EOS % 1.6 % (0-4.5); HEMATOCRIT 40.7 % (32.4-45.2); HEMOGLOBIN 13.5 GM/dL (10.7-15.3); MCH 28.3 pg (25.7-33.7); MCHC 33.1 g/dl (32.0-36.0); MEAN CELL VOLUME 85.7 fl (80-96); MEAN PLT VOLUME 10.4 fl (7.5-11.1); MONO % 9.8 % (3.8-10.2); NEUT % 64.2 % (42.8-82.8); PLATELET COUNT 171 K/MM3 (134-434); RBC 4.75 M/mm3 (3.60-5.2); RDW 15.4 % (11.6-15.6); WHITE BLOOD COUNT 8.3 K/mm3 (4.0-10.0)
[2019-03-12] MEDS ORDERED: cefTRIAXone SODIUM 1 GM VIAL ONE (09:57)
[2019-03-12] MEDS ORDERED: DEXTROSE 5%-WATER - 50 ML IVPB ONE (09:57)
[2019-03-12 10:17] LABS: BLOOD UREA NITROGEN 12.9 mg/dL (7-18); CALCIUM 8.7 mg/dL (8.5-10.1); CREATININE 0.7 mg/dL (0.55-1.3); MAGNESIUM 2.1 mg/dL (1.8-2.4); POTASSIUM 3.6 mmol/L (3.5-5.1)
[2019-03-12] MEDS: ENOXAPARIN NA (PORCINE) 40 MG/0.4 ML DISP.SYRIN SQ SCH (10:38)
[2019-03-12] MEDS: CEFTRIAXONE 1 GM in DEXTROSE 5%-WATER - 50 ML IVPB SCH (10:38)
[2019-03-12] MEDS: MEMANTINE HCL 10 MG TABLET (FP) PO SCH ×2 (10:39→21:53)
[2019-03-12] MEDS ORDERED: SODIUM CHLORIDE 0.9% 500 ML INFUS.BAG IV ONE ×2 (10:48→17:20)
[2019-03-12] MEDS: ACETAMINOPHEN 500 MG TABLET (FP) PO PRN (12:05)
--- NOTE | 2019-03-12 16:57 | PN ---
Teaching Attending Note Name of Resident: Ryan Baig ATTENDING PHYSICIAN STATEMENT I saw and evaluated the patient. I reviewed the resident's note and discussed the case with the resident. I agree with the resident's findings and plan as documented. SUBJECTIVE: No complaints. Feels okay. OBJECTIVE: Afebrile, hemodnamically Stable. Last Vital Signs Temp Pulse Resp BP Pulse Ox 98.5 F 79 18 90/63 95 03/12/19 14:30 03/12/19 14:30 03/12/19 14:30 03/12/19 14:30 03/12/19 09:00 HEAD: Atraumatic, Normocephalic HEART: S1, S2, RRR LUNGS: Clear to auscultation ABDOMEN: Soft, non-tender, non-distended, normal BS EXTREMITIES: No edema, no calf tenderness. NEURO: AAO x 1-2. Moving all 4 extremities. Laboratory Results - last 24 hr 03/12/19 03/12/19 09:15 09:15 WBC 8.3 RBC 4.75 Hgb 13.5 Hct 40.7 MCV 85.7 MCH 28.3 MCHC 33.1 RDW 15.4 Plt Count 171 MPV 10.4 Absolute Neuts (auto) 5.3 Neutrophils % 64.2 Lymphocytes % 24.0 D Monocytes % 9.8 Eosinophils % 1.6 D Basophils % 0.4 Nucleated RBC % 0 Sodium 141 Potassium 3.6 Chloride 110 H Carbon Dioxide 22 Anion Gap 9 BUN 12.9 Creatinine 0.7 Est GFR (CKD-EPI)AfAm 91.57 Est GFR (CKD-EPI)NonAf 79.00 Random Glucose 99 Calcium 8.7 Phosphorus 3.0 Magnesium 2.1 Creatine Kinase 1634 H Creatine Kinase Index 0.7 CK-MB (CK-2) 11.5 H Current Medications Generic Name Dose Route Start Last Admin Trade Name Freq PRN Reason Stop Dose Admin Acetaminophen 500 mg 03/09/19 15:52 03/12/19 12:05 Tylenol - PO 500 mg Q6H PRN Administration PAIN Enoxaparin Sodium 40 mg 03/10/19 10:00 03/12/19 10:38 Lovenox - SQ 40 mg DAILY SANTOSH Administration Ceftriaxone Sodium 1 gm/ 50 mls @ 100 mls/hr 03/10/19 16:30 03/12/19 10:38 Dextrose IVPB 100 mls/hr DAILY SANTOSH Administration Protocol Sodium Chloride 1,000 mls @ 100 mls/hr 03/10/19 16:45 03/12/19 11:41 Normal Saline - IV 100 mls/hr ASDIR SANTOSH Administration Memantine 10 mg 03/10/19 10:00 03/12/19 10:39 Namenda - PO 10 mg DAILY SANTOSH Administration Home Medications Medication Instructions Recorded Memantine HCl [Namenda -] 10 mg PO BID 03/09/19 Simvastatin 10 mg PO DAILY 03/09/19 ASSESSMENT AND PLAN: 83 year old woman with a history of Dementia, HLD, presented to the ED after a fall. 1. Acute metabolic encephalopathy, atop baseline dementia Unclear infective source - No UTI or obvious Pneumonia (some blunting at L base on CXR ?atelectasis vs infiltrate), repeat CXR pending. On empiric Ceftriaxone. Continue Namenda.Eval by Neuro. CT head - no acute findings. MRI ordered as per Neuro recommendation. 2. Acute Rhabdomyolysis secondary to fall CPK up to >1600 For continued hydration and CPK monitoring. 3. s/p fall CT head - chronic microvascular dieases with no acute gross changes C-Spine - multilevel degenerative disc disease. Xray of pelvis, knee - no acute changes PT eval ?placement. 4. HLD - Statin held due to Fall/Rhabdo. DVT Px - Lovenox SQ
[2019-03-12] MEDS ORDERED: risperiDONE 0.25 MG TABLET (FP) PO PRN (17:25)
[2019-03-12] MEDS ORDERED: MELATONIN 5 MG TABLETS PO ONE (20:20)
--- NOTE | 2019-03-12 20:27 | PN ---
Physical Exam: SUBJECTIVE: NAEON. Patient seen and examined. Interactive but with limited communication due to language barrier. Tolerating meals. No complaints OBJECTIVE: Vital Signs Period Temp Pulse Resp BP Sys/Paez Pulse Ox Last 24 Hr 98.2 F-98.9 F 78-94 18-20 90-126/46-72 95 GENERAL: Awake, NAD HEAD: NCAT EYES: PERRL, EOMI ENT: moist mucous membranes. NECK: Supple LUNGS: clear to auscultation bilaterally, no wheezes, no crackles HEART: Regular rate and rhythm, S1, S2 without murmur ABDOMEN: Soft, nontender, nondistended, + bowel sounds, no guarding, no rebound EXTREMITIES: no edema, no ecchymosis to BLE, no TTP of hips NEUROLOGICAL: Cranial nerves II through XII grossly intact. SKIN: Warm, dry Laboratory Results - last 24 hr 03/12/19 03/12/19 09:15 09:15 WBC 8.3 RBC 4.75 Hgb 13.5 Hct 40.7 MCV 85.7 MCH 28.3 MCHC 33.1 RDW 15.4 Plt Count 171 MPV 10.4 Absolute Neuts (auto) 5.3 Neutrophils % 64.2 Lymphocytes % 24.0 D Monocytes % 9.8 Eosinophils % 1.6 D Basophils % 0.4 Nucleated RBC % 0 Sodium 141 Potassium 3.6 Chloride 110 H Carbon Dioxide 22 Anion Gap 9 BUN 12.9 Creatinine 0.7 Est GFR (CKD-EPI)AfAm 91.57 Est GFR (CKD-EPI)NonAf 79.00 Random Glucose 99 Calcium 8.7 Phosphorus 3.0 Magnesium 2.1 Creatine Kinase 1634 H Creatine Kinase Index 0.7 CK-MB (CK-2) 11.5 H Active Medications Generic Name Dose Route Start Last Admin Trade Name Freq PRN Reason Stop Dose Admin Acetaminophen 500 mg 03/09/19 15:52 03/12/19 12:05 Tylenol - PO 500 mg Q6H PRN Administration PAIN Enoxaparin Sodium 40 mg 03/10/19 10:00 03/12/19 10:38 Lovenox - SQ 40 mg DAILY SANTOSH Administration Ceftriaxone Sodium 1 gm/ 50 mls @ 100 mls/hr 03/10/19 16:30 03/12/19 10:38 Dextrose IVPB 100 mls/hr DAILY SANTOSH Administration Protocol Sodium Chloride 1,000 mls @ 100 mls/hr 03/10/19 16:45 03/12/19 18:40 Normal Saline - IV 100 mls/hr ASDIR SANTOSH Administration Memantine 10 mg 03/12/19 22:00 Namenda - PO BID SANTOSH Risperidone 0.25 mg 03/12/19 17:25 03/12/19 19:39 Risperdal - PO 0.25 mg ONCE PRN Administration ANXIETY Vital Signs Temp 98.2 F 03/12/19 18:00 Pulse 87 03/12/19 19:49 Resp 20 03/12/19 18:00 BP 126/46 L 03/12/19 19:49 Pulse Ox 95 03/12/19 09:00 Intake & Output 03/11/19 03/12/19 03/12/19 23:59 11:59 23:59 Intake Total 750 1700 1800 Balance 750 1700 1800 Intake: IV 700 1700 1400 Normal Saline - 1,000 ml 700 1200 900 @ 100 mls/hr IV ASDIR SANTOSH Rx#:[id number] RFA 20 500 500 IVPB 50 50 Oral 0 350 Other: Voiding Method Incontinent Incontinent Incontinent # Unmeasured Voids Void 1 2 2 Bowel Movement Yes No Yes # Bowel Movements 1 ASSESSMENT/PLAN: 83 y/o F with PMHx of HLD and Dementia presents 2d after fall, pt's daughter had concern for slurred speech and lethargy #Unwitnessed Fall >CT head - chronic microvascular dieases with no acute gross changes >C-Spine - multilevel degenerative disc disease. >Xray of pelvis, knee - no acute changes -Likely mechanical -Imaging noted does not reveal any fx; RLE DUPLEX negative for DVT -Fall/Seizure precautions -Physical therapy -Analgesia via Acetaminophen #Acute Rhabdomyolysis secondary to fall >CPK up to ~1600 -NS 500cc x2 -IVF -repeat CK and trend -hold statin #Acute metabolic encephalopathy, >CXR(03/12/19) -- unchanged -unknown source of infection - No UTI or obvious Pneumonia (some blunting at L base on CXR ?atelectasis vs infiltrate), . -On empiric Ceftriaxone for now #Dementia -As per EMR, patient also presented with AMS + Speech slurring -Brain MRI without contrast pending -- risperidone for possible claustrophobia -Neurology (Dr. Shell) consulted, appreciate rec's: --MRI, --PT --cw memantine 10mg BID --consider cardio w/u #Dyslipidemia -Statin #FEN -NS@100 -Replete lytes PRN -reg diet #PPx -DVT: Lovenox Problem List - Problems (1) Dementia Code(s): F03.90 - UNSPECIFIED DEMENTIA WITHOUT BEHAVIORAL DISTURBANCE (2) Fall Code(s): W19.XXXA - UNSPECIFIED FALL, INITIAL ENCOUNTER (3) Hypercholesterolemia Code(s): E78.0 - PURE HYPERCHOLESTEROLEMIA * DO NOT USE * (4) Hypertension Code(s): I10 - ESSENTIAL (PRIMARY) HYPERTENSION Visit type - Emergency Visit Emergency Visit: No - New Patient This patient is new to me today: No - Critical Care Critical Care patient: No ATTENDING PHYSICIAN STATEMENT I saw and evaluated the patient. I reviewed the resident's note and discussed the case with the resident. I agree with the resident's findings and plan as documented. SUBJECTIVE: OBJECTIVE: ASSESSMENT AND PLAN:
[2019-03-13] MEDS ORDERED: SODIUM CHLORIDE 500 ML IV STA ×2 (06:34→10:33)
[2019-03-13] MEDS: SODIUM CHLORIDE 1,000 ML IV SCH (07:06)
--- NOTE | 2019-03-13 09:36 | PN ---
Progress Note (short form) - Note Progress Note: Neurology HISTORY OF PRESENT ILLNESS: The patient is an 83 y/o female with a PMHx of HLD and Dementia who presents with daughter and home health aide following a fall. Daughter at beside provides majority of history. Stated home health aide noticed a bruise on the patient's forehead on day of admission and patient subsequently reported she fell on . At baseline patient is ambulatory and completes ADL's with the assistance of her daily home health aide. In ER daughter also c/o that mom is having pain in her rt leg kirit thigh area. No bruise noted. Head CT completed , chronic microvascular dieases with no acute gross changes, multilevel degenerative disc disease. Xray of pelvis, knee, and leg completed with no acute changes. Patient on Simvastatin 10mg at home. Somnolent again this a.m. but arousable, MRI brain has been ordered and in agreement with this. Awaiting completion of imaging. Physical therapy may be of benefit as well. Spoke to daughter previously in detail on the phone and explained results of CAT scan as well as patient's clinical condition. Daughter well aware of patient's dementia. Spoke with nurse this morning and MRI brain not yet completed, discussed with nurse and reportedly patient was combative and would not be able to tolerate procedure. Based on age reportedly would like to avoid sedatives. Therefore, this morning ordered noncontrast head CT and if repeat CT head does not provide significant abnormalities then may not require MRI. The patient does appear more awake and alert and interactive with me this morning. again more calm and relaxed as she was yesterday with me Allergies No Known Allergies Allergy (Verified 03/09/19 11:11) Active Medications Acetaminophen (Tylenol -) 500 mg PO Q6H PRN PRN Reason: PAIN Last Admin: 03/12/19 12:05 Dose: 500 mg Enoxaparin Sodium (Lovenox -) 40 mg SQ DAILY SANTOSH Last Admin: 03/12/19 10:38 Dose: 40 mg Ceftriaxone Sodium 1 gm/ (Dextrose) 50 mls @ 100 mls/hr IVPB DAILY SANTOSH; Protocol Last Admin: 03/12/19 10:38 Dose: 100 mls/hr Sodium Chloride (Normal Saline -) 1,000 mls @ 100 mls/hr IV ASDIR SANTOSH Last Admin: 09/25/19 07:06 Dose: 100 mls/hr Memantine (Namenda -) 10 mg PO BID SANTOSH Last Admin: 03/12/19 21:53 Dose: 10 mg Risperidone (Risperdal -) 0.25 mg PO ONCE PRN PRN Reason: ANXIETY Last Admin: 03/12/19 19:39 Dose: 0.25 mg PHYSICAL EXAMINATION Vital Signs Period Temp Pulse Resp BP Sys/Paez Pulse Ox Last 24 Hr 98 F-98.9 F 78-94 18-20 90-126/46-72 95 GENERAL: Awake, alert, and in no acute distress. HEAD: Normal with no signs of trauma. EYES: Pupils equal, round and reactive to light, extraocular movements intact, sclera anicteric, conjunctiva clear. No lid lag. EARS, NOSE, THROAT: Ears normal, nares patent, oropharynx clear without exudates. Moist mucous membranes. NECK: Normal range of motion, supple without lymphadenopathy, JVD, or masses. LUNGS: Breath sounds equal, clear to auscultation bilaterally. No wheezes, and no crackles. No accessory muscle use. HEART: Regular rate and rhythm, normal S1 and S2 without murmur, rub or gallop. ABDOMEN: Soft, nontender, not distended, normoactive bowel sounds, no guarding, no rebound, no masses. No hepatomegaly or splenomegaly. MUSCULOSKELETAL: Normal range of motion at all joints. No bony deformities or tenderness. No CVA tenderness. UPPER EXTREMITIES: 2+ pulses, warm, well-perfused. No cyanosis. No clubbing. No peripheral edema. LOWER EXTREMITIES: 2+ pulses, warm, well-perfused. No calf tenderness. No peripheral edema. NEUROLOGICAL: she is confused but moving all extremities and at time responds by smiling at you. she comprehend the commands by daughter in hungarian . CBCD WBC 8.3 K/mm3 (4.0-10.0) 03/12/19 09:15 RBC 4.75 M/mm3 (3.60-5.2) 03/12/19 09:15 Hgb 13.5 GM/dL (10.7-15.3) 03/12/19 09:15 Hct 40.7 % (32.4-45.2) 03/12/19 09:15 MCV 85.7 fl (80-96) 03/12/19 09:15 MCHC 33.1 g/dl (32.0-36.0) 03/12/19 09:15 RDW 15.4 % (11.6-15.6) 03/12/19 09:15 Plt Count 171 K/MM3 (134-434) 03/12/19 09:15 MPV 10.4 fl (7.5-11.1) 03/12/19 09:15 CMP Sodium 141 mmol/L (136-145) 03/12/19 09:15 Potassium 3.6 mmol/L (3.5-5.1) 03/12/19 09:15 Chloride 110 mmol/L (98-107) H 03/12/19 09:15 Carbon Dioxide 22 mmol/L (21-32) 03/12/19 09:15 Anion Gap 9 MMOL/L (8-16) 03/12/19 09:15 BUN 12.9 mg/dL (7-18) 03/12/19 09:15 Creatinine 0.7 mg/dL (0.55-1.3) 03/12/19 09:15 Random Glucose 99 mg/dL (74-106) 03/12/19 09:15 Calcium 8.7 mg/dL (8.5-10.1) 03/12/19 09:15 Total Bilirubin 0.9 mg/dL (0.2-1) 03/10/19 17:32 AST 42 U/L (15-37) H 03/10/19 17:32 ALT 34 U/L (13-61) 03/10/19 17:32 Alkaline Phosphatase 74 U/L (45-117) 03/10/19 17:32 Total Protein 6.9 g/dl (6.4-8.2) 03/10/19 17:32 Albumin 3.4 g/dl (3.4-5.0) 03/10/19 17:32 CARDIAC ENZYMES Creatine Kinase 1380 U/L (26-192) H 03/13/19 07:35 Troponin I < 0.02 ng/ml (0.00-0.05) 03/09/19 11:20 ASSESSMENT/PLAN: The patient is an 83 y/o female with a PMHx of HLD and Dementia who presents with daughter and home health aide following a fall. Daughter at beside provides majority of history. Stated home health aide noticed a bruise on the patient's forehead on day of admission and patient subsequently reported she fell on . At baseline patient is ambulatory and completes ADL's with the assistance of her daily home health aide. In ER daughter also c/o that mom is having pain in her rt leg kirit thigh area. No bruise noted. Head CT completed , chronic microvascular dieases with no acute gross changes, multilevel degenerative disc disease. Xray of pelvis, knee, and leg completed with no acute changes. Patient on Simvastatin 10mg at home. Somnolent again this a.m. but arousable, MRI brain has been ordered and in agreement with this. Awaiting completion of imaging. Physical therapy may be of benefit as well. Spoke to daughter previously in detail on the phone and explained results of CAT scan as well as patient's clinical condition. Daughter well aware of patient's dementia. Spoke with nurse this morning and MRI brain not yet completed, discussed with nurse and reportedly patient was combative and would not be able to tolerate procedure. Based on age reportedly would like to avoid sedatives. Therefore, this morning ordered noncontrast head CT and if repeat CT head does not provide significant abnormalities then may not require MRI. The patient does appear more awake and alert and interactive with me this morning. again more calm and relaxed as she was yesterday with me. Physical therapy may be of benefit as well. can continue memantine 10 mg twice a day as prescribed at home. Cardiac workup should be considered. Fall precautions. DVT prophylaxis.
[2019-03-13] MEDS ORDERED: cefTRIAXone SODIUM 1 GM VIAL ONE (09:55)
[2019-03-13] MEDS ORDERED: DEXTROSE 5%-WATER - 50 ML IVPB ONE (09:56)
[2019-03-13] MEDS: ENOXAPARIN NA (PORCINE) 40 MG/0.4 ML DISP.SYRIN SQ SCH (10:21)
[2019-03-13] MEDS: CEFTRIAXONE 1 GM in DEXTROSE 5%-WATER - 50 ML IVPB SCH (10:22)
[2019-03-13] MEDS: MEMANTINE HCL 10 MG TABLET (FP) PO SCH ×2 (10:22→21:03)
[2019-03-13] MEDS ORDERED: SODIUM CHLORIDE 0.9% 500 ML INFUS.BAG IV ONE (13:38)
--- NOTE | 2019-03-13 14:46 | ECHO ---
Name: IRWIN WHEELER Exam:Adult Echocardiogram Study Date: 03/13/2019 11:06 AM Age: 83 yrs Reason For Study: SYNCOPE Height: 64 in Weight: 160 lb BSA: 1.8 m2 MMode/2D Measurements & Calculations IVSd: 1.2 cm Ao root diam: 2.9 cm LVIDd: 3.0 cm LA dimension: 4.6 cm LVIDs: 2.5 cm ACS: 2.0 cm LVPWd: 1.2 cm EDV(Teich): 34.5 ml LVOT diam: 2.0 cm ESV(Teich): 23.0 ml Doppler Measurements & Calculations TR max hannah: 232.1 cm/sec TR max P.6 mmHg Procedure The study was technically difficult with many images being suboptimal in quality. The study was non-d iagnostic in quality. No definitive statements could be made about this echo due to extremely poor acoustic win dows. Left Ventricle The left ventricle is grossly normal size. Due to the poor quality of the echocardiogram, an assessme nt of left ventricular ejection fraction cannot be made. Regional wall motion abnormalities cannot be exclu ded due to limited visualization. Right Ventricle The right ventricle is not well visualized. Atria The left atrium is moderately dilated. The right atrium is moderately dilated. Mitral Valve The mitral valve is not well visualized. Tricuspid Valve The tricuspid valve is not well visualized. There is no tricuspid stenosis. There is mild tricuspid regurgitation. Right ventricular systolic pressure is normal. Aortic Valve The aortic valve is not well visualized. Hemodynamically significant valvular aortic stenosis cannot be excluded. Moderate aortic regurgitation. Pulmonic Valve The pulmonic valve is not well visualized. Great Vessels The aortic root is normal size. Pericardium/Pleura There is no pericardial effusion. Interpretation Summary The study was technically difficult with many images being suboptimal in quality. Moderate aortic regurgitation. The study was non-diagnostic in quality. No definitive statements could be made about this echo due t o extremely poor acoustic windows. The left ventricle is grossly normal size. Due to the poor quality of the echocardiogram, an assessment of left ventricular ejection fraction ca nnot be made. Regional wall motion abnormalities cannot be excluded due to limited visualization. The left atrium is moderately dilated. The right atrium is moderately dilated. There is mild tricuspid regurgitation. Right ventricular systolic pressure is normal. Hemodynamically significant valvular aortic stenosis cannot be excluded. MD Sergo Ontiveros 03/13/2019 02:45 PM
--- NOTE | 2019-03-13 15:59 | PN ---
Teaching Attending Note Name of Resident: Ryan Baig ATTENDING PHYSICIAN STATEMENT I saw and evaluated the patient. I reviewed the resident's note and discussed the case with the resident. I agree with the resident's findings and plan as documented. SUBJECTIVE: No complaints. Feels okay. OBJECTIVE: Afebrile, Hemodnamically Stable. More awake, alert, interactive. Last Vital Signs Temp Pulse Resp BP Pulse Ox 98.7 F 83 20 103/46 L 95 03/13/19 10:00 03/13/19 10:00 03/13/19 10:00 03/13/19 10:00 03/13/19 09:00 HEART: S1, S2, SM LUNGS: Clear to auscultation ABDOMEN: Soft, non-tender, normal BS EXTREMITIES: No edema, no calf tenderness. NEURO: AAO x 1. Moving all 4 extremities. Tone/Power normal. Laboratory Results - last 24 hr 03/12/19 03/13/19 21:00 07:35 Creatine Kinase 1662 H 1380 H Creatine Kinase Index 0.7 0.6 CK-MB (CK-2) 12.0 H 8.8 H Current Medications Generic Name Dose Route Start Last Admin Trade Name Freq PRN Reason Stop Dose Admin Acetaminophen 500 mg 03/09/19 15:52 03/12/19 12:05 Tylenol - PO 500 mg Q6H PRN Administration PAIN Enoxaparin Sodium 40 mg 03/10/19 10:00 03/13/19 10:21 Lovenox - SQ 40 mg DAILY SANTOSH Administration Ceftriaxone Sodium 1 gm/ 50 mls @ 100 mls/hr 03/10/19 16:30 03/13/19 10:22 Dextrose IVPB 100 mls/hr DAILY SANTOSH Administration Protocol Sodium Chloride 1,000 mls @ 100 mls/hr 03/10/19 16:45 03/13/19 07:06 Normal Saline - IV 100 mls/hr ASDIR SANTOSH Administration Memantine 10 mg 03/12/19 22:00 03/13/19 10:22 Namenda - PO 10 mg BID SANTOSH Administration Risperidone 0.25 mg 03/12/19 17:25 03/12/19 19:39 Risperdal - PO 0.25 mg ONCE PRN Administration ANXIETY Home Medications Medication Instructions Recorded Memantine HCl [Namenda -] 10 mg PO BID 03/09/19 Simvastatin 10 mg PO DAILY 03/09/19 ASSESSMENT AND PLAN: 83 year old woman with a history of Dementia, HLD, presented to the ED after a fall. 1. Acute metabolic encephalopathy, atop baseline dementia Unclear infective source - No UTI or obvious Pneumonia (some blunting at L base on CXR ?atelectasis vs infiltrate), repeat CXR - large hiatal hernia, no infiltrate. Will discontinue empiric Ceftriaxone. CT head - no acute findings. Unable to tolerate MRI. Continue Namenda. Neuro following. 2. Acute Rhabdomyolysis secondary to fall CPK improving, still > 1000 For continued hydration and CPK monitoring. 3. s/p fall ?syncope (unwitnessed) CT head - chronic microvascular diseases with no acute gross changes C-Spine - multilevel degenerative disc disease. Xray of pelvis, knee - no acute changes Carotid Duplex - no hemodynamically significant stenosis Echo - poor quality apparently, no useful information able to be reported. Will repeat. 24 hour telemonitoring. PT eval ?placement. 4. HLD - Statin held due to Fall/Rhabdo. DVT Px - Lovenox SQ
--- NOTE | 2019-03-13 16:33 | PN ---
Physical Exam: SUBJECTIVE: Patient seen and examined. Mostly nodding and smiling. Language barrier OBJECTIVE: Vital Signs Period Temp Pulse Resp BP Sys/Paez Pulse Ox Last 24 Hr 98 F-98.7 F 78-87 18-20 103-126/46-72 95-95 GENERAL: Awake, NAD HEAD: NCAT EYES: PERRL, EOMI ENT: moist mucous membranes. NECK: Supple LUNGS: clear to auscultation bilaterally, no wheezes, no crackles HEART: Regular rate and rhythm, S1, S2 without murmur ABDOMEN: Soft, nontender, nondistended, + bowel sounds, no guarding, no rebound EXTREMITIES: no edema, no ecchymosis to BLE, no TTP of hips NEUROLOGICAL: Cranial nerves II through XII grossly intact. SKIN: Warm, dry Laboratory Results - last 24 hr 03/12/19 03/13/19 21:00 07:35 Creatine Kinase 1662 H 1380 H Creatine Kinase Index 0.7 0.6 CK-MB (CK-2) 12.0 H 8.8 H Active Medications Generic Name Dose Route Start Last Admin Trade Name Simeonq PRN Reason Stop Dose Admin Acetaminophen 500 mg 03/09/19 15:52 03/12/19 12:05 Tylenol - PO 500 mg Q6H PRN Administration PAIN Enoxaparin Sodium 40 mg 03/10/19 10:00 03/13/19 10:21 Lovenox - SQ 40 mg DAILY SANTOSH Administration Ceftriaxone Sodium 1 gm/ 50 mls @ 100 mls/hr 03/10/19 16:30 03/13/19 10:22 Dextrose IVPB 100 mls/hr DAILY SANTOSH Administration Protocol Sodium Chloride 1,000 mls @ 100 mls/hr 03/10/19 16:45 03/13/19 07:06 Normal Saline - IV 100 mls/hr ASDIR SANTOSH Administration Memantine 10 mg 03/12/19 22:00 03/13/19 10:22 Namenda - PO 10 mg BID SANTOSH Administration Risperidone 0.25 mg 03/12/19 17:25 03/12/19 19:39 Risperdal - PO 0.25 mg ONCE PRN Administration ANXIETY Vital Signs Temp 98.7 F 03/13/19 10:00 Pulse 83 03/13/19 10:00 Resp 20 03/13/19 10:00 BP 103/46 L 03/13/19 10:00 Pulse Ox 95 03/13/19 09:00 Intake & Output 03/12/19 03/13/19 03/13/19 23:59 11:59 23:59 Intake Total 1800 1880 Balance 1800 1880 Weight 72.575 kg Intake: IV 1400 900 Normal Saline - 1,000 ml 900 900 @ 100 mls/hr IV ASDIR SANTOSH Rx#:[id number] RFA 20 500 IVPB 50 500 Oral 350 Oral Supplement 480 Other: Voiding Method Incontinent Incontinent # Unmeasured Voids Void 1 3 Bowel Movement Yes # Bowel Movements 1 Height 5 ft 4 in Body Mass Index (BMI) 27.4 ASSESSMENT/PLAN: 83 y/o F with PMHx of HLD and Dementia presents 2d after fall, pt's daughter had concern for slurred speech and lethargy #Unwitnessed Fall -- likely mechanical >CT head - chronic microvascular dieases with no acute gross changes >C-Spine - multilevel degenerative disc disease. >Xray of pelvis, knee - no acute changes -Imaging noted does not reveal any fx; RLE DUPLEX negative for DVT -Fall/Seizure precautions -Physical therapy -Analgesia via Acetaminophen #possible syncope during unwitnessed fall -cardio w/u w/ Echo, carotid duplex, tele >echo(03/13): poor study >carotid duplex(03/13): mild atherosclerotic disease, L>R but no signif stenosis #Acute Rhabdomyolysis secondary to fall >CPK up to ~1600 -- >1300 -repeat NS 500cc x2 -IVF -trending CK -hold statin #Acute metabolic encephalopathy, >CXR(03/12/19) -- unchanged >CTH() -- unchanged -unknown source of infection - No UTI or obvious Pneumonia (some blunting at L base on CXR ?atelectasis vs infiltrate), . -On empiric Ceftriaxone for now #Dementia -As per EMR, patient also presented with AMS + Speech slurring -Brain MRI without contrast pending -- risperidone for possible claustrophobia -Neurology (Dr. Shell) consulted, appreciate rec's: --MRI -- patient agitated during procedure --PT --cw memantine 10mg BID --consider cardio w/u --ordered noncontrast head CT and if repeat CT head does not provide significant abnormalities then may not require MRI #Dyslipidemia -Statin #FEN -NS@100 -Replete lytes PRN -reg diet #PPx -DVT: Lovenox Problem List - Problems (1) Dementia Code(s): F03.90 - UNSPECIFIED DEMENTIA WITHOUT BEHAVIORAL DISTURBANCE (2) Fall Code(s): W19.XXXA - UNSPECIFIED FALL, INITIAL ENCOUNTER (3) Hypercholesterolemia Code(s): E78.0 - PURE HYPERCHOLESTEROLEMIA * DO NOT USE * (4) Hypertension Code(s): I10 - ESSENTIAL (PRIMARY) HYPERTENSION Visit type - Emergency Visit Emergency Visit: No - New Patient This patient is new to me today: No - Critical Care Critical Care patient: No ATTENDING PHYSICIAN STATEMENT I saw and evaluated the patient. I reviewed the resident's note and discussed the case with the resident. I agree with the resident's findings and plan as documented. SUBJECTIVE: OBJECTIVE: ASSESSMENT AND PLAN:
[2019-03-14] MEDS ORDERED: ACETAMINOPHEN 500 MG TABLET (FP) PO PRN (00:01)
[2019-03-14] MEDS: SODIUM CHLORIDE 1,000 ML IV SCH (03:29)
--- NOTE | 2019-03-14 08:05 | PN ---
Progress Note (short form) - Note Progress Note: Neurology HISTORY OF PRESENT ILLNESS: The patient is an 83 y/o female with a PMHx of HLD and Dementia who presents with daughter and home health aide following a fall. Daughter at beside provides majority of history. Stated home health aide noticed a bruise on the patient's forehead on day of admission and patient subsequently reported she fell on . At baseline patient is ambulatory and completes ADL's with the assistance of her daily home health aide. In ER daughter also c/o that mom is having pain in her rt leg kirit thigh area. No bruise noted. Head CT completed , chronic microvascular dieases with no acute gross changes, multilevel degenerative disc disease. Xray of pelvis, knee, and leg completed with no acute changes. Patient on Simvastatin 10mg at home. Somnolent again this a.m. but arousable, MRI brain has been ordered and in agreement with this. Awaiting completion of imaging. Physical therapy may be of benefit as well. Spoke to daughter previously in detail on the phone and explained results of CAT scan as well as patient's clinical condition. Daughter well aware of patient's dementia. Spoke with nurse this morning and MRI brain not yet completed, discussed with nurse and reportedly patient was combative and would not be able to tolerate procedure. Based on age reportedly would like to avoid sedatives. Therefore, this morning ordered noncontrast head CT and if repeat CT head does not provide significant abnormalities then may not require MRI. The patient completed noncontrast head CT which I reviewedand did not show any significant structural abnormalities or acute changes. She was getting an echo this morning at bedside and was otherwise, and cooperative. Allergies No Known Allergies Allergy (Verified 03/09/19 11:11) Active Medications Acetaminophen (Tylenol -) 500 mg PO Q6H PRN PRN Reason: PAIN OR FEVER Enoxaparin Sodium (Lovenox -) 40 mg SQ DAILY [facility] Ceftriaxone Sodium 1 gm/ (Dextrose) 50 mls @ 100 mls/hr IVPB DAILY [facility]; Protocol Sodium Chloride (Normal Saline -) 1,000 mls @ 100 mls/hr IV ASDIR [facility] Last Admin: 03/14/19 03:29 Dose: 100 mls/hr Memantine (Namenda -) 10 mg PO BID [facility] PHYSICAL EXAMINATION Vital Signs Period Temp Pulse Resp BP Sys/Paez Pulse Ox Last 24 Hr 98.4 F-99.0 F 78-86 18-20 103-156/46-89 95-97 GENERAL: Awake, alert, and in no acute distress. HEAD: Normal with no signs of trauma. EYES: Pupils equal, round and reactive to light, extraocular movements intact, sclera anicteric, conjunctiva clear. No lid lag. EARS, NOSE, THROAT: Ears normal, nares patent, oropharynx clear without exudates. Moist mucous membranes. NECK: Normal range of motion, supple without lymphadenopathy, JVD, or masses. LUNGS: Breath sounds equal, clear to auscultation bilaterally. No wheezes, and no crackles. No accessory muscle use. HEART: Regular rate and rhythm, normal S1 and S2 without murmur, rub or gallop. ABDOMEN: Soft, nontender, not distended, normoactive bowel sounds, no guarding, no rebound, no masses. No hepatomegaly or splenomegaly. MUSCULOSKELETAL: Normal range of motion at all joints. No bony deformities or tenderness. No CVA tenderness. UPPER EXTREMITIES: 2+ pulses, warm, well-perfused. No cyanosis. No clubbing. No peripheral edema. LOWER EXTREMITIES: 2+ pulses, warm, well-perfused. No calf tenderness. No peripheral edema. NEUROLOGICAL: she is confused but moving all extremities and at time responds by smiling at you. she comprehend the commands by daughter in greenlandic . CBCD WBC 8.3 K/mm3 (4.0-10.0) 03/12/19 09:15 RBC 4.75 M/mm3 (3.60-5.2) 03/12/19 09:15 Hgb 13.5 GM/dL (10.7-15.3) 03/12/19 09:15 Hct 40.7 % (32.4-45.2) 03/12/19 09:15 MCV 85.7 fl (80-96) 03/12/19 09:15 MCHC 33.1 g/dl (32.0-36.0) 03/12/19 09:15 RDW 15.4 % (11.6-15.6) 03/12/19 09:15 Plt Count 171 K/MM3 (134-434) 03/12/19 09:15 MPV 10.4 fl (7.5-11.1) 03/12/19 09:15 CMP Sodium 141 mmol/L (136-145) 03/12/19 09:15 Potassium 3.6 mmol/L (3.5-5.1) 03/12/19 09:15 Chloride 110 mmol/L (98-107) H 03/12/19 09:15 Carbon Dioxide 22 mmol/L (21-32) 03/12/19 09:15 Anion Gap 9 MMOL/L (8-16) 03/12/19 09:15 BUN 12.9 mg/dL (7-18) 03/12/19 09:15 Creatinine 0.7 mg/dL (0.55-1.3) 03/12/19 09:15 Random Glucose 99 mg/dL (74-106) 03/12/19 09:15 Calcium 8.7 mg/dL (8.5-10.1) 03/12/19 09:15 Total Bilirubin 0.9 mg/dL (0.2-1) 03/10/19 17:32 AST 42 U/L (15-37) H 03/10/19 17:32 ALT 34 U/L (13-61) 03/10/19 17:32 Alkaline Phosphatase 74 U/L (45-117) 03/10/19 17:32 Total Protein 6.9 g/dl (6.4-8.2) 03/10/19 17:32 Albumin 3.4 g/dl (3.4-5.0) 03/10/19 17:32 CARDIAC ENZYMES Creatine Kinase 1108 U/L (26-192) H 03/13/19 15:10 Troponin I < 0.02 ng/ml (0.00-0.05) 03/09/19 11:20 ASSESSMENT/PLAN: The patient is an 83 y/o female with a PMHx of HLD and Dementia who presents with daughter and home health aide following a fall. Daughter at beside provides majority of history. Stated home health aide noticed a bruise on the patient's forehead on day of admission and patient subsequently reported she fell on . At baseline patient is ambulatory and completes ADL's with the assistance of her daily home health aide. In ER daughter also c/o that mom is having pain in her rt leg kirit thigh area. No bruise noted. Head CT completed , chronic microvascular dieases with no acute gross changes, multilevel degenerative disc disease. Xray of pelvis, knee, and leg completed with no acute changes. Patient on Simvastatin 10mg at home. Somnolent again this a.m. but arousable, MRI brain has been ordered and in agreement with this. Awaiting completion of imaging. Physical therapy may be of benefit as well. Spoke to daughter previously in detail on the phone and explained results of CAT scan as well as patient's clinical condition. Daughter well aware of patient's dementia. Spoke with nurse this morning and MRI brain not yet completed, discussed with nurse and reportedly patient was combative and would not be able to tolerate procedure. Based on age reportedly would like to avoid sedatives. Therefore, this morning ordered noncontrast head CT and if repeat CT head does not provide significant abnormalities then may not require MRI. The patient completed noncontrast head CT which I reviewedand did not show any significant structural abnormalities or acute changes. She was getting an echo this morning at bedside and was otherwise, and cooperative. Can continue memantine 10 mg twice a day as prescribed at home. Cardiac workup should be considered. Fall precautions. DVT prophylaxis.
[2019-03-14] MEDS: MEMANTINE HCL 10 MG TABLET (FP) PO SCH ×2 (09:29→22:14)
[2019-03-14] MEDS ORDERED: CEFTRIAXONE 1 GM in DEXTROSE 5%-WATER - 50 ML IVPB SCH (10:00)
[2019-03-14] MEDS: ENOXAPARIN NA (PORCINE) 40 MG/0.4 ML DISP.SYRIN SQ SCH (10:28)
--- NOTE | 2019-03-14 13:39 | ECHO ---
Name: IRWIN WHEELER Exam:Adult Echocardiogram Study Date: 03/14/2019 08:30 AM Age: 83 yrs Reason For Study: SYNCOPE Height: 64 in Weight: 160 lb BSA: 1.8 m2 MMode/2D Measurements & Calculations IVSd: 0.91 cm Ao root diam: 2.9 cm LVIDd: 4.5 cm LA dimension: 3.1 cm LVIDs: 3.0 cm LVPWd: 0.78 cm EDV(Teich): 93.4 ml LVOT diam: 2.0 cm ESV(Teich): 36.3 ml LAV (MOD-bp): 48.0 ml Doppler Measurements & Calculations MV E max qasim: 74.5 cm/sec Ao V2 max: 214.5 cm/sec MV A max qasim: 101.7 cm/sec Ao max P.4 mmHg MV E/A: 0.73 Ao V2 mean: 150.7 cm/sec MV dec time: 0.28 sec Ao mean P.3 mmHg Ao V2 VTI: 46.7 cm DUSTIN(I,D): 1.2 cm2 AI P1/2t: 610.1 msec DUSTIN(V,D): 1.4 cm2 AI max qasim: 391.7 cm/sec LV V1 max P.8 mmHg AI max P.4 mmHg LV V1 mean P.9 mmHg AI dec slope: 188.1 cm/sec2 LV V1 max: 97.9 cm/sec LV V1 mean: 66.0 cm/sec LV V1 VTI: 17.2 cm MR max qasim: 400.9 cm/sec SV(LVOT): 54.1 ml MR max P.4 mmHg TR max qasim: 203.1 cm/sec Med Peak E' Qasim: 3.4 cm/sec TR max P.5 mmHg Med E/e': 22.0 Lat Peak E' Qasim: 5.4 cm/sec Lat E/e': 13.9 Procedure A complete two-dimensional transthoracic echocardiogram was performed (2D, M-mode, Doppler and color flow Doppler). Left Ventricle The left ventricular size, thickness and function are normal. The left ventricular ejection fraction is normal. Ejection Fraction = 60-65%. No regional wall motion abnormalities noted. Right Ventricle The right ventricle is normal in size and function. Atria Normal left and right atrial size and function. Mitral Valve There is no mitral regurgitation noted. Tricuspid Valve There is trace tricuspid regurgitation. There was insufficient TR detected to calculate RV systolic p ressure. Aortic Valve Mild valvular aortic stenosis. Mild aortic regurgitation. Pulmonic Valve There is no pulmonic valvular regurgitation. Great Vessels The aortic root is normal size. Pericardium/Pleura There is no pericardial effusion. Interpretation Summary The left ventricular size, thickness and function are normal The right ventricle is normal in size and function. There is trace tricuspid regurgitation. Mild aortic regurgitation. Mild valvular aortic stenosis. MD Augusto Davis 03/14/2019 01:38 PM
--- NOTE | 2019-03-14 14:53 | PN ---
Teaching Attending Note Name of Resident: Ryan Baig ATTENDING PHYSICIAN STATEMENT I saw and evaluated the patient. I reviewed the resident's note and discussed the case with the resident. I agree with the resident's findings and plan as documented. SUBJECTIVE: Feels better - no complaints. ore alert and interactive. OBJECTIVE: Afebrile, Hemodnamically Stable. More awake, alert, interactive. Last Vital Signs Temp Pulse Resp BP Pulse Ox 98.4 F 80 20 107/70 97 03/14/19 02:00 03/14/19 06:00 03/14/19 06:00 03/14/19 06:00 03/13/19 21:00 HEART: S1, S2, SM LUNGS: Clear to auscultation ABDOMEN: Soft, non-tender, normal BS EXTREMITIES: No edema, no calf tenderness. NEURO: AAO x 1. Moving all 4 extremities. Tone/Power normal. Laboratory Results - last 24 hr 03/13/19 03/14/19 15:10 08:20 Creatine Kinase 1108 H 946 H Creatine Kinase Index 0.5 0.7 CK-MB (CK-2) 6.6 H 6.8 H Current Medications Generic Name Dose Route Start Last Admin Trade Name Freq PRN Reason Stop Dose Admin Acetaminophen 500 mg 03/14/19 00:01 Tylenol - PO Q6H PRN PAIN OR FEVER Enoxaparin Sodium 40 mg 03/14/19 10:00 03/14/19 10:28 Lovenox - SQ 40 mg DAILY [facility] Administration Sodium Chloride 1,000 mls @ 100 mls/hr 03/14/19 00:01 03/14/19 03:29 Normal Saline - IV 100 mls/hr ASDIR [facility] Administration Memantine 10 mg 03/14/19 10:00 03/14/19 09:29 Namenda - PO 10 mg BID [facility] Administration Home Medications Medication Instructions Recorded Memantine HCl [Namenda -] 10 mg PO BID 03/09/19 Simvastatin 10 mg PO DAILY 03/09/19 ASSESSMENT AND PLAN: 83 year old woman with a history of Dementia, HLD, presented to the ED after a fall. 1. Acute metabolic encephalopathy, atop baseline dementia Unclear infective source - No UTI or obvious Pneumonia (some blunting at L base on CXR ?atelectasis vs infiltrate), repeat CXR - large hiatal hernia, no infiltrate. Empiric Ceftriaxone discontinued after adequate treatment course. CT head - no acute findings. Unable to tolerate MRI. Continue Namenda. Neuro following. 2. Acute Rhabdomyolysis secondary to fall CPK improved with IV hydration For continued oral hydration on discharge and CPK monitoring as out-patient. Statin held. 3. s/p fall ?syncope (unwitnessed) CT head - chronic microvascular diseases with no acute gross changes C-Spine - multilevel degenerative disc disease. Xray of pelvis, knee - no acute changes Carotid Duplex - no hemodynamically significant stenosis Echo - normal EF, mild . 24 hour telemonitoring uneventful. 4. HLD - Statin held due to Fall/Rhabdo. for out-patinet CPK monitoring and decision by PCP re:resuming statin once CPK normalizes. DVT Px - Lovenox SQ
[2019-03-14] MEDS ORDERED: PNEUMOCOCCAL 23 VACCINE 0.5 ML VIAL IM ONE (15:27)
--- NOTE | 2019-03-14 19:24 | PN ---
Physical Exam: SUBJECTIVE: Patient seen and examined. Denies pain. OBJECTIVE: Vital Signs Period Temp Pulse Resp BP Sys/Paez Pulse Ox Last 24 Hr 98.2 F-99.0 F 78-86 18-20 107-156/59-89 97 GENERAL: Awake, NAD. Appears comfortable, smiling HEAD: NCAT EYES: PERRL, EOMI ENT: moist mucous membranes. NECK: Supple LUNGS: clear to auscultation bilaterally, no wheezes, no crackles HEART: Regular rate and rhythm, S1, S2 without murmur ABDOMEN: Soft, nontender, nondistended, + bowel sounds, no guarding, no rebound EXTREMITIES: no edema, no ecchymosis to BLE, no TTP of hips NEUROLOGICAL: language barrier but answer with yes or no to questions regarding pain and hunger SKIN: Warm, dry Laboratory Results - last 24 hr 03/14/19 08:20 Creatine Kinase 946 H Creatine Kinase Index 0.7 CK-MB (CK-2) 6.8 H Active Medications Generic Name Dose Route Start Last Admin Trade Name Zeinab PRN Reason Stop Dose Admin Acetaminophen 500 mg 03/14/19 00:01 Tylenol - PO Q6H PRN PAIN OR FEVER Enoxaparin Sodium 40 mg 03/14/19 10:00 03/14/19 10:28 Lovenox - SQ 40 mg DAILY [facility] Administration Sodium Chloride 1,000 mls @ 100 mls/hr 03/14/19 00:01 03/14/19 03:29 Normal Saline - IV 100 mls/hr ASDIR [facility] Administration Memantine 10 mg 03/14/19 10:00 03/14/19 09:29 Namenda - PO 10 mg BID [facility] Administration Pneumococcal Polyvalent Vaccine 0.5 ml 03/14/19 15:27 Pneumovax - IM 03/14/19 15:28 .ONCE ONE Vital Signs Temp 98.2 F 03/14/19 10:00 Pulse 80 03/14/19 10:00 Resp 20 03/14/19 10:00 BP 110/80 03/14/19 10:00 Pulse Ox 97 03/13/19 21:00 Intake & Output 03/13/19 03/14/19 03/14/19 23:59 11:59 23:59 Intake Total 1680 Balance 1680 Intake: IV 1200 Normal Saline - 1,000 ml 1200 @ 100 mls/hr IV ASDIR [facility] Rx#:[id number] Oral Supplement 480 Other: Voiding Method Diaper Incontinent Incontinent # Unmeasured Voids Void 2 2 ASSESSMENT/PLAN: 83 y/o F with PMHx of HLD and Dementia presents 2d after fall, pt's daughter had concern for slurred speech and lethargy #Unwitnessed Fall -- likely mechanical >CT head - chronic microvascular dieases with no acute gross changes >C-Spine - multilevel degenerative disc disease. >Xray of pelvis, knee - no acute changes -Imaging noted does not reveal any fx; RLE DUPLEX negative for DVT -Fall/Seizure precautions -Physical therapy -Analgesia via Acetaminophen #possible syncope during unwitnessed fall -cardio w/u w/ Echo, carotid duplex, tele >echo(03/13): poor study >echo(03/14): trace TR, mild AR, mild . Normal LV motion and function >carotid duplex(03/13): mild atherosclerotic disease, L>R but no signif stenosis #Acute Rhabdomyolysis secondary to fall >CPK up to ~1600 -- >1300 --> 940 -IVF -trending CK -hold statin #Acute metabolic encephalopathy, >CXR(03/12/19) -- unchanged >CTH() -- unchanged -unknown source of infection - No UTI or obvious Pneumonia (some blunting at L base on CXR ?atelectasis vs infiltrate), . -On empiric Ceftriaxone for now, but will be dc on d/c #Dementia -As per EMR, patient also presented with AMS + Speech slurring -Brain MRI without contrast pending -- risperidone for possible claustrophobia -Neurology (Dr. Shell) consulted, appreciate rec's: --MRI -- patient agitated during procedure --PT --cw memantine 10mg BID --consider cardio w/u --ordered noncontrast head CT and if repeat CT head does not provide significant abnormalities then may not require MRI #Dyslipidemia -Statin #FEN -NS@100 -- stopped -Replete lytes PRN -reg diet #PPx -DVT: Lovenox Problem List - Problems (1) Dementia Code(s): F03.90 - UNSPECIFIED DEMENTIA WITHOUT BEHAVIORAL DISTURBANCE (2) Fall Code(s): W19.XXXA - UNSPECIFIED FALL, INITIAL ENCOUNTER (3) Hypercholesterolemia Code(s): E78.0 - PURE HYPERCHOLESTEROLEMIA * DO NOT USE * (4) Hypertension Code(s): I10 - ESSENTIAL (PRIMARY) HYPERTENSION Visit type - Emergency Visit Emergency Visit: No - New Patient This patient is new to me today: No - Critical Care Critical Care patient: No ATTENDING PHYSICIAN STATEMENT I saw and evaluated the patient. I reviewed the resident's note and discussed the case with the resident. I agree with the resident's findings and plan as documented. SUBJECTIVE: OBJECTIVE: ASSESSMENT AND PLAN:
[2019-03-15] MEDS ORDERED: MELATONIN 5 MG TABLETS PO ONE (00:35)
[2019-03-15] MEDS: SODIUM CHLORIDE 1,000 ML IV SCH (06:07)
--- NOTE | 2019-03-15 08:34 | PN ---
Progress Note (short form) - Note Progress Note: Neurology HISTORY OF PRESENT ILLNESS: The patient is an 83 y/o female with a PMHx of HLD and Dementia who presents with daughter and home health aide following a fall. Daughter at beside provides majority of history. Stated home health aide noticed a bruise on the patient's forehead on day of admission and patient subsequently reported she fell on . At baseline patient is ambulatory and completes ADL's with the assistance of her daily home health aide. In ER daughter also c/o that mom is having pain in her rt leg kirit thigh area. No bruise noted. Head CT completed , chronic microvascular dieases with no acute gross changes, multilevel degenerative disc disease. Xray of pelvis, knee, and leg completed with no acute changes. Patient on Simvastatin 10mg at home. Spoke to daughter previously in detail on the phone and explained results of CAT scan as well as patient's clinical condition. Daughter well aware of patient's dementia. CT head was repeated and no acute changes. Reviewed carotid Dopplers today which showed no hemodynamically significant stenosis. Repeat echo also reviewed and normal left ventricular function, normal ejection fraction Normal right ventricular function also noted. Patient possibly for discharge, no objection of this. Allergies No Known Allergies Allergy (Verified 03/09/19 11:11) Active Medications Acetaminophen (Tylenol -) 500 mg PO Q6H PRN PRN Reason: PAIN OR FEVER Enoxaparin Sodium (Lovenox -) 40 mg SQ DAILY [facility] Last Admin: 03/14/19 10:28 Dose: 40 mg Sodium Chloride (Normal Saline -) 1,000 mls @ 100 mls/hr IV ASDIR [facility] Last Admin: 03/15/19 06:07 Dose: 100 mls/hr Memantine (Namenda -) 10 mg PO BID [facility] Last Admin: 03/14/19 22:14 Dose: 10 mg PHYSICAL EXAMINATION Vital Signs Period Temp Pulse Resp BP Sys/Paez Pulse Ox Last 24 Hr 97.7 F-98.3 F 80-92 20-20 110-136/69-80 94-97 GENERAL: Awake, alert, and in no acute distress. HEAD: Normal with no signs of trauma. EYES: Pupils equal, round and reactive to light, extraocular movements intact, sclera anicteric, conjunctiva clear. No lid lag. EARS, NOSE, THROAT: Ears normal, nares patent, oropharynx clear without exudates. Moist mucous membranes. NECK: Normal range of motion, supple without lymphadenopathy, JVD, or masses. LUNGS: Breath sounds equal, clear to auscultation bilaterally. No wheezes, and no crackles. No accessory muscle use. HEART: Regular rate and rhythm, normal S1 and S2 without murmur, rub or gallop. ABDOMEN: Soft, nontender, not distended, normoactive bowel sounds, no guarding, no rebound, no masses. No hepatomegaly or splenomegaly. MUSCULOSKELETAL: Normal range of motion at all joints. No bony deformities or tenderness. No CVA tenderness. UPPER EXTREMITIES: 2+ pulses, warm, well-perfused. No cyanosis. No clubbing. No peripheral edema. LOWER EXTREMITIES: 2+ pulses, warm, well-perfused. No calf tenderness. No peripheral edema. NEUROLOGICAL: she is confused but moving all extremities and at time responds by smiling at you. she comprehend the commands by daughter in albanian . CBCD WBC 8.3 K/mm3 (4.0-10.0) 03/12/19 09:15 RBC 4.75 M/mm3 (3.60-5.2) 03/12/19 09:15 Hgb 13.5 GM/dL (10.7-15.3) 03/12/19 09:15 Hct 40.7 % (32.4-45.2) 03/12/19 09:15 MCV 85.7 fl (80-96) 03/12/19 09:15 MCHC 33.1 g/dl (32.0-36.0) 03/12/19 09:15 RDW 15.4 % (11.6-15.6) 03/12/19 09:15 Plt Count 171 K/MM3 (134-434) 03/12/19 09:15 MPV 10.4 fl (7.5-11.1) 03/12/19 09:15 CMP Sodium 141 mmol/L (136-145) 03/12/19 09:15 Potassium 3.6 mmol/L (3.5-5.1) 03/12/19 09:15 Chloride 110 mmol/L (98-107) H 03/12/19 09:15 Carbon Dioxide 22 mmol/L (21-32) 03/12/19 09:15 Anion Gap 9 MMOL/L (8-16) 03/12/19 09:15 BUN 12.9 mg/dL (7-18) 03/12/19 09:15 Creatinine 0.7 mg/dL (0.55-1.3) 03/12/19 09:15 Random Glucose 99 mg/dL (74-106) 03/12/19 09:15 Calcium 8.7 mg/dL (8.5-10.1) 03/12/19 09:15 Total Bilirubin 0.9 mg/dL (0.2-1) 03/10/19 17:32 AST 42 U/L (15-37) H 03/10/19 17:32 ALT 34 U/L (13-61) 03/10/19 17:32 Alkaline Phosphatase 74 U/L (45-117) 03/10/19 17:32 Total Protein 6.9 g/dl (6.4-8.2) 03/10/19 17:32 Albumin 3.4 g/dl (3.4-5.0) 03/10/19 17:32 CARDIAC ENZYMES Creatine Kinase 946 U/L (26-192) H 03/14/19 08:20 Troponin I < 0.02 ng/ml (0.00-0.05) 03/09/19 11:20 ASSESSMENT/PLAN: The patient is an 83 y/o female with a PMHx of HLD and Dementia who presents with daughter and home health aide following a fall. Daughter at beside provides majority of history. Stated home health aide noticed a bruise on the patient's forehead on day of admission and patient subsequently reported she fell on . At baseline patient is ambulatory and completes ADL's with the assistance of her daily home health aide. In ER daughter also c/o that mom is having pain in her rt leg kirit thigh area. No bruise noted. Head CT completed , chronic microvascular dieases with no acute gross changes, multilevel degenerative disc disease. Xray of pelvis, knee, and leg completed with no acute changes. Patient on Simvastatin 10mg at home. Spoke to daughter previously in detail on the phone and explained results of CAT scan as well as patient's clinical condition. Daughter well aware of patient's dementia. CT head was repeated and no acute changes. Reviewed carotid Dopplers today which showed no hemodynamically significant stenosis. Repeat echo also reviewed and normal left ventricular function, normal ejection fraction Normal right ventricular function also noted. Patient possibly for discharge, no objection of this. Can continue memantine 10 mg twice a day as prescribed at home. outpatient follow up for more detailed memory assessment. Cardiac workup should be considered. Fall precautions. DVT prophylaxis.
[2019-03-15] MEDS: ENOXAPARIN NA (PORCINE) 40 MG/0.4 ML DISP.SYRIN SQ SCH (10:34)
[2019-03-15] MEDS: MEMANTINE HCL 10 MG TABLET (FP) PO SCH ×2 (10:34→21:10)
[2019-03-15] MEDS ORDERED: PNEUMOCOCCAL 23 VACCINE 0.5 ML VIAL IM ONE (11:10)
[2019-03-15] MEDS ORDERED: PNEUMOC 13-VAL CONJ-DIP CRM/PF 0.5 ML DISP.SYRIN IM ONE (12:00)
[2019-03-15] MEDS ORDERED: SODIUM CHLORIDE 1,000 ML IV SCH (14:37)
[2019-03-15] MEDS ORDERED: ACETAMINOPHEN 500 MG TABLET (FP) PO PRN (14:37)
--- NOTE | 2019-03-15 14:40 | PN ---
Teaching Attending Note Name of Resident: Gunjan Trevino ATTENDING PHYSICIAN STATEMENT I saw and evaluated the patient. I reviewed the resident's note and discussed the case with the resident. I agree with the resident's findings and plan as documented. SUBJECTIVE: Feels better - no complaints. Alert. OBJECTIVE: Afebrile, Hemodnamically Stable. More awake, alert, interactive. Mumbles, no clear words or sentences. Last Vital Signs Temp Pulse Resp BP Pulse Ox 98.1 F 90 21 H 123/71 94 L 03/15/19 10:00 03/15/19 10:00 03/15/19 10:00 03/15/19 10:00 03/15/19 09:00 HEART: S1, S2, SM LUNGS: Clear to auscultation ABDOMEN: Soft, non-tender, normal BS EXTREMITIES: No edema, no calf tenderness. NEURO: AAO x 1. Moving all 4 extremities. Tone/Power normal all extremities. Laboratory Results - last 24 hr 03/15/19 08:23 Creatine Kinase 503 H Creatine Kinase Index 0.9 CK-MB (CK-2) 4.6 H Current Medications Generic Name Dose Route Start Last Admin Trade Name Simeonq PRN Reason Stop Dose Admin Acetaminophen 500 mg 03/14/19 00:01 Tylenol - PO Q6H PRN PAIN OR FEVER Enoxaparin Sodium 40 mg 03/14/19 10:00 03/15/19 10:34 Lovenox - SQ 40 mg DAILY SANTOSH Administration Sodium Chloride 1,000 mls @ 100 mls/hr 03/14/19 00:01 03/15/19 06:07 Normal Saline - IV 100 mls/hr ASDIR SANTOSH Administration Memantine 10 mg 03/14/19 10:00 03/15/19 10:34 Namenda - PO 10 mg BID SANTOSH Administration Home Medications Medication Instructions Recorded Memantine HCl [Namenda -] 10 mg PO BID 03/09/19 Simvastatin 10 mg PO DAILY 03/09/19 ASSESSMENT AND PLAN: 83 year old woman with a history of Dementia, HLD, presented to the ED after a fall. 1. Acute metabolic encephalopathy, atop baseline dementia Unclear infective source - No UTI or obvious Pneumonia (some blunting at L base on CXR ?atelectasis vs infiltrate), repeat CXR - large hiatal hernia, no infiltrate. Empiric Ceftriaxone discontinued after adequate treatment course. CT head - no acute findings. Unable to tolerate MRI. Continue Namenda. Neuro follow-up on discharge for foral dementia testing and Dx. 2. Acute Rhabdomyolysis secondary to fall CPK improved with IV hydration For continued oral hydration on discharge and CPK monitoring as out-patient. Statin held. 3. s/p fall ?syncope (unwitnessed) CT head - chronic microvascular diseases with no acute gross changes C-Spine - multilevel degenerative disc disease. Xray of pelvis, knee - no acute changes Carotid Duplex - no hemodynamically significant stenosis Echo - normal EF, mild . 24 hour telemonitoring uneventful. 4. HLD - Statin held due to Fall/Rhabdo. For out-patient CPK monitoring and decision by PCP re:resuming statin once CPK normalizes. DVT Px - Lovenox SQ Dispo - recommended for SNF - daughter declines. Discharged home but family appealing. No acute medical issues at this time. Medically optimized for discharge.
[2019-03-16] MEDS: MEMANTINE HCL 10 MG TABLET (FP) PO SCH (09:14)
[2019-03-16] MEDS ORDERED: ENOXAPARIN NA (PORCINE) 40 MG/0.4 ML DISP.SYRIN SQ SCH (10:00)
[2019-03-16 11:48] VITALS: BP 119/72; PULSE 85; TEMP 97.8
--- NOTE | 2019-03-16 13:42 | PN ---
Progress Note (short form) - Note Progress Note: SUBJECTIVE: Feels better - no complaints. Awake, Alert, pleasant. OBJECTIVE: Afebrile, Hemodnamically Stable. More awake, alert, interactive. Mumbles, no clear words or sentences. Last Vital Signs Temp Pulse Resp BP Pulse Ox 97.8 F 85 20 119/72 97 03/16/19 10:00 03/16/19 10:00 03/16/19 10:00 03/16/19 10:00 03/16/19 09:00 HEART: S1, S2, SM LUNGS: Clear to auscultation ABDOMEN: Soft, non-tender, normal BS EXTREMITIES: No edema, no calf tenderness. NEURO: AAO x 1. Moving all 4 extremities. Tone/Power normal all extremities. Current Medications Generic Name Dose Route Start Last Admin Trade Name Freq PRN Reason Stop Dose Admin Acetaminophen 500 mg 03/15/19 14:37 03/15/19 20:34 Tylenol - PO 500 mg Q6H PRN Administration PAIN OR FEVER Enoxaparin Sodium 40 mg 03/16/19 10:00 03/16/19 09:14 Lovenox - SQ 40 mg DAILY SANTOSH Administration Memantine 10 mg 03/15/19 22:00 03/16/19 09:14 Namenda - PO 10 mg BID SANTOSH Administration Discharge Medications Medication Instructions Recorded Memantine HCl [Namenda -] 10 mg PO BID 03/09/19 Diaper,Brief,Adult, Disposable 1 each DAILY #60 each 03/16/19 [Adjustable Underwear] Miscellaneous Medical Supply 1 each [facility]IR [facility] 03/16/19 [Outpatient Order] ASSESSMENT AND PLAN: 83 year old woman with a history of Dementia, HLD, presented to the ED after a fall. 1. Acute metabolic encephalopathy, atop baseline dementia Unclear infective source - No UTI or obvious Pneumonia (some blunting at L base on CXR ?atelectasis vs infiltrate), repeat CXR - large hiatal hernia, no infiltrate. Empiric Ceftriaxone discontinued after adequate treatment course. CT head - no acute findings. Unable to tolerate MRI. Continue Namenda. Neuro follow-up on discharge for formal dementia testing and Dx. 2. Acute Rhabdomyolysis secondary to fall CPK improved with IV hydration For continued oral hydration on discharge and CPK monitoring as out-patient. Statin held. 3. s/p fall ?syncope (unwitnessed) CT head - chronic microvascular diseases with no acute gross changes C-Spine - multilevel degenerative disc disease. Xray of pelvis, knee - no acute changes Carotid Duplex - no hemodynamically significant stenosis Echo - normal EF, mild . 24 hour telemonitoring uneventful. 4. HLD - Statin held due to Fall/Rhabdo. For out-patient CPK monitoring and decision by PCP re:resuming statin once CPK normalizes. DVT Px - Lovenox SQ Dispo - recommended for SNF - daughter declines. Discharged home but family appealed. No acute medical issues at this time. Medically optimized for discharge. Visit type - Emergency Visit Emergency Visit: Yes ED Registration Date: 03/09/19 Care time: The patient presented to the Emergency Department on the above date and was hospitalized for further evaluation of their emergent condition. - New Patient This patient is new to me today: No - Critical Care Critical Care patient: No - Discharge Referral Referred to [facility] Med [facility].C[facility] No
--- NOTE | 2019-03-16 14:41 | PN ---
Physical Exam: SUBJECTIVE: Patient seen and examined. Sleeping comfortably. Denies pain. OBJECTIVE: Vital Signs Period Temp Pulse Resp BP Sys/Paez Pulse Ox Last 24 Hr 97.8 F-99.1 F 76-101 20-22 115-127/65-90 94-97 GENERAL: Awake, NAD. Appears comfortable, smiling HEAD: NCAT EYES: PERRL, EOMI ENT: moist mucous membranes. NECK: Supple LUNGS: clear to auscultation bilaterally, no wheezes, no crackles HEART: Regular rate and rhythm, S1, S2 without murmur ABDOMEN: Soft, nontender, nondistended, + bowel sounds, no guarding, no rebound EXTREMITIES: no edema, no ecchymosis to BLE, no TTP of hips NEUROLOGICAL: language barrier but answer with yes or no to questions regarding pain and hunger SKIN: Warm, dry Active Medications Generic Name Dose Route Start Last Admin Trade Name Freq PRN Reason Stop Dose Admin Acetaminophen 500 mg 03/15/19 14:37 03/15/19 20:34 Tylenol - PO 500 mg Q6H PRN Administration PAIN OR FEVER Enoxaparin Sodium 40 mg 03/16/19 10:00 03/16/19 09:14 Lovenox - SQ 40 mg DAILY SANTOSH Administration Memantine 10 mg 03/15/19 22:00 03/16/19 09:14 Namenda - PO 10 mg BID SANTOSH Administration Vital Signs Temp 97.8 F 03/16/19 10:00 Pulse 85 03/16/19 10:00 Resp 20 03/16/19 10:00 BP 119/72 03/16/19 10:00 Pulse Ox 97 03/16/19 09:00 Intake & Output 03/15/19 03/16/19 03/16/19 23:59 11:59 23:59 Intake Total 790 100 Balance 790 100 Intake: IV 100 Normal Saline - 1,000 ml 100 @ 100 mls/hr IV ASDIR SANTOSH Rx#:[id number] Oral 790 Other: Voiding Method Incontinent Incontinent # Unmeasured Voids Void 3 4 Bowel Movement Yes No # Bowel Movements 1 Weight Measurement Method Built in [facility] ASSESSMENT/PLAN: 83 y/o F with PMHx of HLD and Dementia presents 2d after fall, pt's daughter had concern for slurred speech and lethargy #Unwitnessed Fall -- likely mechanical >CT head - chronic microvascular dieases with no acute gross changes >C-Spine - multilevel degenerative disc disease. >Xray of pelvis, knee - no acute changes -Imaging noted does not reveal any fx; RLE DUPLEX negative for DVT -Fall/Seizure precautions -Physical therapy -Analgesia via Acetaminophen -patient displayed reduced ability to ambulate, possibly 2/2 deconditioning #possible syncope during unwitnessed fall -cardio w/u w/ Echo, carotid duplex, tele >echo(03/13): poor study >echo(03/14): trace TR, mild AR, mild . Normal LV motion and function >carotid duplex(03/13): mild atherosclerotic disease, L>R but no signif stenosis #Acute Rhabdomyolysis secondary to fall >CPK up to ~1600 -- >1300 --> 940 -IVF -trending CK -hold statin #Acute metabolic encephalopathy, >CXR(03/12/19) -- unchanged >CTH() -- unchanged -unknown source of infection - No UTI or obvious Pneumonia (some blunting at L base on CXR ?atelectasis vs infiltrate), . -On empiric Ceftriaxone for now, but will be dc on d/c #Dementia -As per EMR, patient also presented with AMS + Speech slurring -Brain MRI without contrast pending -- risperidone for possible claustrophobia -Neurology (Dr. Shell) consulted, appreciate rec's: --MRI -- patient agitated during procedure --PT --cw memantine 10mg BID --consider cardio w/u -- neg for acute disease in carotid duplex, echo --ordered noncontrast head CT and if repeat CT head does not provide significant abnormalities then may not require MRI -- repeat CTH is neg #Dyslipidemia -Statin #FEN -NS@100 -- stopped -Replete lytes PRN -- stopped -reg diet #PPx -DVT: Lovenox Dispo: -admitted to [facility], transferred to [facility] -dc plan: patient's daughter adamantly refuses SNF or rehab. Expresses desire for 24/ [employer]. Pt's daughter appealed discharge despite counseling that further medical treatment in an inpatient setting is no indicated. Ultimately, pt's appeal was denied. Pt's daughter appeared upset upon discharge. Problem List - Problems (1) Dementia Code(s): F03.90 - UNSPECIFIED DEMENTIA WITHOUT BEHAVIORAL DISTURBANCE (2) Fall Code(s): W19.XXXA - UNSPECIFIED FALL, INITIAL ENCOUNTER (3) Hypercholesterolemia Code(s): E78.0 - PURE HYPERCHOLESTEROLEMIA * DO NOT USE * (4) Hypertension Code(s): I10 - ESSENTIAL (PRIMARY) HYPERTENSION Visit type - Emergency Visit Emergency Visit: No - New Patient This patient is new to me today: No - Critical Care Critical Care patient: No ATTENDING PHYSICIAN STATEMENT I saw and evaluated the patient. I reviewed the resident's note and discussed the case with the resident. I agree with the resident's findings and plan as documented. SUBJECTIVE: OBJECTIVE: ASSESSMENT AND PLAN:
--- NOTE | 2019-03-21 13:57 | DS ---
Physical Exam: SUBJECTIVE: Patient seen and examined. Simple Syriac phrase OBJECTIVE: PHYSICAL EXAM GENERAL: Awake, NAD. Appears comfortable, smiling HEAD: NCAT EYES: PERRL, EOMI ENT: moist mucous membranes. NECK: Supple LUNGS: clear to auscultation bilaterally, no wheezes, no crackles HEART: Regular rate and rhythm, S1, S2 without murmur ABDOMEN: Soft, nontender, nondistended, + bowel sounds, no guarding, no rebound EXTREMITIES: no edema, no ecchymosis to BLE, no TTP of hips, stable pelvis NEUROLOGICAL: language barrier but answer with yes or no to questions regarding pain and hunger SKIN: Warm, dry LABS Lab Results WBC 8.3 K/mm3 (4.0-10.0) 03/12/19 09:15 RBC 4.75 M/mm3 (3.60-5.2) 03/12/19 09:15 Hgb 13.5 GM/dL (10.7-15.3) 03/12/19 09:15 Hct 40.7 % (32.4-45.2) 03/12/19 09:15 MCV 85.7 fl (80-96) 03/12/19 09:15 MCHC 33.1 g/dl (32.0-36.0) 03/12/19 09:15 RDW 15.4 % (11.6-15.6) 03/12/19 09:15 Plt Count 171 K/MM3 (134-434) 03/12/19 09:15 Sodium 141 mmol/L (136-145) 03/12/19 09:15 Potassium 3.6 mmol/L (3.5-5.1) 03/12/19 09:15 Chloride 110 mmol/L (98-107) H 03/12/19 09:15 Carbon Dioxide 22 mmol/L (21-32) 03/12/19 09:15 Anion Gap 9 MMOL/L (8-16) 03/12/19 09:15 BUN 12.9 mg/dL (7-18) 03/12/19 09:15 Creatinine 0.7 mg/dL (0.55-1.3) 03/12/19 09:15 Random Glucose 99 mg/dL (74-106) 03/12/19 09:15 Calcium 8.7 mg/dL (8.5-10.1) 03/12/19 09:15 INR 1.10 (0.83-1.09) H 03/09/19 11:20 HOSPITAL COURSE: 83 y/o F with PMHx of HLD and Dementia presents 2d after fall, pt's daughter had concern for slurred speech, lethargy, pain at RLE. CTH neg for acute process. CT neck neg for acute process. XR of pelvis and Right knee neg for fx. US dupplex neg for RLE DVT. Report of unwitnessed fall prompted sycnope w/u w/ echo showing trace TR, mild AR, mild ; normal LV motion and function. Carotid dopplers neg for significant stenosis. Labwork showed CPK ~1600 which trended down to ~500 after IVF. Statin was held. CXR showed atelectasis vs infiltrate, so ceftriaxone was started empirically and stopped on discharge. Patient's daughter persisted in complaining of inability for patient to walk. Neuro recommended MRI brain to further evaluate for stroke but patient could not tolerate the claustrophobia despite Ativan or risperidone. Repeat CT H did not show any acute changes. Patient ambulated 60ft with assistance with nurse. Patient's daughter adamantly refused post-discharge placement to rehab or SNF. Patient has [employer] service established [employer] but daughter appealed discharge due to desire to establish more home services. Daughter refused taking patient home due to belief that patient cannot ambulate. Ultimately, the patient lost the appeal Date of Admission:03/09/19 Date of Discharge: 03/21/19 Minutes to complete discharge: 25 Discharge Summary Problems reviewed: Yes Reason For Visit: FALL Condition: Stable - Instructions Diet, Activity, Other Instructions: You were evaluated for weakness, slurred speech, pain in the Right leg 2 days after falling at home. 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 XRay of the chest showed an enlarged heart, hiatal hernia. An xray of the right hip, femur, knee did not show any fractures. A neurologist was consulted. A brain MRI was ordered but you could not stay still for accurate imaging. A CT of the head and a repeat CT of the head did not show any signs of acute changes. An ultrasound did not show any blood clots in your legs. A carotid ultrasound showed mild atherosclerotic disease but no significant stenosis. An echocardiogram showed trace tricuspid regurgitation, mild aortic stenosis. Bloodwork was suggestive of muscle injury. You were given antibiotics as a precaution for possible infection-related confusion. Your symptoms improved. Please follow-up within 1 week with: -your PCP -neurologist(Dr Shell) Medications: -no new medications to start -STOP taking your simvastatin -continue with your normal medications Additional instructions: -recheck your CPK level on Sunday 03/18 or 03/19 with your PCP to evaluate for muscle injury -drink plenty of fluids, approximately 8 glasses of water daily until repeat CPK check Return to the ED or seek other immediate medical attention if you experience: -severe unremitting headache, fever, chills, nausea, vomiting, dizziness -change in your gait -severe unremitting pain Referrals: Kyle Shell MD [Staff Physician] - Disposition: VNS/HOME HEALTH CARE - Home Medications Comprehensive Discharge Medication List: Ambulatory Orders Memantine HCl [Namenda -] 10 mg PO BID 03/09/19 Diaper,Brief,Adult, Disposable [Adjustable Underwear] 1 each DAILY #60 each 03/16/19 Miscellaneous Medical Supply [Outpatient Order] 1 each ASDIR #60 misc Problem List - Problems (1) Dementia Code(s): F03.90 - UNSPECIFIED DEMENTIA WITHOUT BEHAVIORAL DISTURBANCE (2) Fall Code(s): W19.XXXA - UNSPECIFIED FALL, INITIAL ENCOUNTER (3) Hypercholesterolemia Code(s): E78.0 - PURE HYPERCHOLESTEROLEMIA * DO NOT USE * (4) Hypertension Code(s): I10 - ESSENTIAL (PRIMARY) HYPERTENSION (5) Traumatic rhabdomyolysis Code(s): T79.6XXA - TRAUMATIC ISCHEMIA OF MUSCLE, INITIAL ENCOUNTER This patient is new to me today: No Emergency Visit: No Critical Care patient: No - Discharge Referral Referred to [facility] Med P.C.: No ATTENDING PHYSICIAN STATEMENT I saw and evaluated the patient. I reviewed the resident's note and discussed the case with the resident. I agree with the resident's findings and plan as documented. SUBJECTIVE: OBJECTIVE: ASSESSMENT AND PLAN:
== END 2019-03-16 14:30 | disposition home health service (06) | DRG 884 ==
LOC: JER 10:55 → JERBED 13:09 → J5S 03-10 00:03 → J4W 03-13 14:49 → J8W 03-15 17:21
PROVIDERS: ADMIT Internal Medicine
DX: F03.90 Unspecified dementia, unspecified severity, without behavioral disturbance, psychotic disturbance, mood disturbance, and anxiety (principal); G93.41 Metabolic encephalopathy; M62.82 Rhabdomyolysis; J98.11 Atelectasis; S00.83XA Contusion of other part of head, initial encounter; E78.5 Hyperlipidemia, unspecified; E78.00 Pure hypercholesterolemia, unspecified; R47.81 Slurred speech; K44.9 Diaphragmatic hernia without obstruction or gangrene; R55 Syncope and collapse; W19.XXXA Unspecified fall, initial encounter; Y93.9 Activity, unspecified; Y92.009 Unspecified place in unspecified non-institutional (private) residence as the place of occurrence of the external cause; Y99.8 Other external cause status
CPT/HCPCS: 36415; 70450-TC; 71045-TC-FY; 72125-TC; 73523-TC-FY; 73552-TC-RT-FY; 73562-TC-RT-FY; 80048; 80053; 81003; 82550; 82553; 82962; 83735; 84100; 84484; 85025; 85610; 85730; 87040; 87086; 90670; 93005; 93010; 93306-TC; 93880-TC; 93971-TC; 97116-GP; 97161-GP; 99285-25; J7030

== ENCOUNTER 2019-05-09 11:05 | Inpatient (IN) | payer OTHER ==
--- NOTE | 2019-05-09 11:41 | PDOC ---
History of Present Illness - General Chief Complaint: Altered Mental Status Stated Complaint: Altered Mental Status History Source: Family Exam Limitations: Dementia - History of Present Illness Initial Comments: 05/09/19 12:04 Patient is 83F with history of HLD and dementia here today with family with altered mental status. Patient's son at bedside states that he is concerned because she was not acting herself this morning. She was found by her aide with loose stool in her diaper, seemed weaker than normal and the family was concerned she drank some dish soap due to a cup with dish soap being found. No soap residue was found on patient or patient's clothes. Patient denies pain, but is not able to give a history of what happened this morning. This is currently her normal amount of confusion, but the son states she was worse this morning. Past History - Past Medical History Allergies/Adverse Reactions: Allergies Allergy/AdvReac Type Severity Reaction Status Date / Time No Known Allergies Allergy Verified 05/09/19 11:50 Home Medications: Ambulatory Orders Memantine HCl [Namenda -] 10 mg PO BID 03/09/19 Ascorbic Acid [Vitamin C -] 500 mg PO DAILY 05/09/19 Esomeprazole Magnesium [Nexium 24Hr] 20 mg PO DAILY 05/09/19 Multivitamin [Multiple Vitamins] 1 each PO DAILY 05/09/19 Simvastatin 10 mg PO HS 05/09/19 COPD: No Dementia: Yes GI Disorders: Yes (gerd) HTN: Yes Hypercholesterolemia: Yes - Surgical History Cholecystectomy: Yes - Immunization History Immunization Up to Date: Yes - Psycho Social/Smoking Cessation Hx Smoking History: Unknown if ever smoked Have you smoked in the past 12 months: No If you are a former smoker, when did you quit?: 50 years ago Hx Alcohol Use: No Drug/Substance Use Hx: No Substance Use Type: None Review of Systems - Review of Systems Able to Perform ROS?: No (2/2 dementia) *Physical Exam - Vital Signs Last Vital Signs Temp Pulse Resp BP Pulse Ox 98.4 F 84 16 119/73 96 05/09/19 11:06 05/09/19 11:06 05/09/19 11:06 05/09/19 11:06 05/09/19 11:06 - Physical Exam Comments: 05/09/19 12:07 GENERAL: Awake, alert, and oriented to self/place, not time, in no acute distress HEAD: No signs of trauma, normocephalic, atraumatic EYES: PERRLA, EOMI, sclera anicteric, conjunctiva clear ENT: Auricles normal inspection, hearing grossly normal, nares patent, oropharynx clear without exudates. Moist mucosa NECK: Normal ROM, supple, no lymphadenopathy, JVD, or masses LUNGS: No distress, speaks full sentences, clear to auscultation bilaterally HEART: Regular rate and rhythm, normal S1 and S2, no murmurs, rubs or gallops, peripheral pulses normal and equal bilaterally. ABDOMEN: Soft, nontender, normoactive bowel sounds. No guarding, no rebound. No masses EXTREMITIES: Normal inspection, Normal range of motion, no edema. No clubbing or cyanosis. NEUROLOGICAL: Cranial nerves II through XII grossly intact. Normal speech, no focal sensorimotor deficits SKIN: Warm, Dry, normal turgor, no rashes or lesions noted. ED Treatment Course - LABORATORY CBC & Chemistry Diagram: 05/09/19 12:15 05/09/19 13:45 Medical Decision Making - Medical Decision Making 05/09/19 12:08 Patient is 83F with history of dementia, HLD here today with altered mental status. Vitals normal and stable. Patient appears to be at baseline now. Exam reassuring. Will workup broadly given lack of history from patient. DDx includes , but is not limited to: uti, dehydration, metabolic derangement, pneumonia, subdural hematoma. 05/09/19 15:24 CBC normal PT/PTT normal CMP reassuring UA+ Trop negative CXR shows no infiltrate, ?congestive changes CT head done, no blood on my wet read, pending radiology read AMS likely caused by UTI, will treat with ceftriaxone. 05/09/19 16:58 D/w Dr Delarosa, accepted to [facility]. Discharge - Discharge Information Problems reviewed: Yes Clinical Impression/Diagnosis: UTI (urinary tract infection), Altered mental status Condition: Stable - Admission Yes - Follow up/Referral - Patient Discharge Instructions - Post Discharge Activity
[2019-05-09] MEDS ORDERED: SODIUM CHLORIDE 500 ML IV STA (11:51)
[2019-05-09 12:45] LABS: BASO % 0.3 % (0-2.0); EOS % 0.3 % (0-4.5); HEMATOCRIT 43.8 % (32.4-45.2); HEMOGLOBIN 14.5 GM/dL (10.7-15.3); LYMPH % 14.8 % (8-40); MCH 28.2 pg (25.7-33.7); MCHC 33.2 g/dl (32.0-36.0); MEAN CELL VOLUME 84.8 fl (80-96); MEAN PLT VOLUME 10.8 fl (7.5-11.1); NEUT % 77.6 % (42.8-82.8); PLATELET COUNT 208 K/MM3 (134-434); RBC 5.16 M/mm3 (3.60-5.2); WHITE BLOOD COUNT 7.5 K/mm3 (4.0-10.0)
[2019-05-09 13:01] LABS: PH,URINE 8.5 (5.0-8.0); URINE APPEARANCE TURBID; URINE BILIRUBIN NEGATIVE (NEGATIVE); URINE COLOR DK YELLOW; URINE GLUCOSE (UA) NEGATIVE (NEGATIVE); URINE KETONE NEGATIVE (NEGATIVE); URINE LEUK ESTERASE 4+ (NEGATIVE); URINE NITRITE NEGATIVE (NEGATIVE); URINE PROTEIN 2+ (NEGATIVE); URINE UROBILINOGEN 0.2 mg/dL (0.2-1.0)
[2019-05-09 13:03] LABS: EPI CELLS 18.3 /HPF (0-5/HPF); INR 1.09 (0.83-1.09); PROTHROMBIN TIME (PATIENT) 12.9 SEC (9.7-13.0); URINE BACTERIA 4430.9 /hpf (NEGATIVE); URINE WBC 2642.7 /hpf (0-5)
[2019-05-09 13:04] LABS: URINE RBC 53.5 /hpf (0-4)
[2019-05-09 13:05] LABS: ACTIVATED PTT 33.4 SECONDS (25.2-36.5)
[2019-05-09] MEDS ORDERED: CEFTRIAXONE 1,000 MG in DEXTROSE 5%-WATER - 50 ML IVPB ONE (13:09)
[2019-05-09] MEDS ORDERED: CEFTRIAXONE 1 GM/50 ML BAG ONE (13:38)
[2019-05-09 14:33] LABS: ALBUMIN 3.7 g/dl (3.4-5.0); ALK PHOS 91 U/L (45-117); ANION GAP 8 MMOL/L (8-16); BILIRUBIN,TOTAL 0.7 mg/dL (0.2-1); BLOOD UREA NITROGEN 19.6 mg/dL (7-18); CALCIUM 9.3 mg/dL (8.5-10.1); CHLORIDE 109 mmol/L (98-107); CO2 21 mmol/L (21-32); GLUCOSE,RANDOM 110 mg/dL (74-106); MAGNESIUM 2.3 mg/dL (1.8-2.4); POTASSIUM 4.4 mmol/L (3.5-5.1); SGOT/AST 21 U/L (15-37); SGPT/ALT 37 U/L (13-61); SODIUM 138 mmol/L (136-145); TOT PROT 7.5 g/dl (6.4-8.2)
--- NOTE | 2019-05-09 17:38 | PN ---
Progress Note (short form) - Note Progress Note: Hospitalist Medicine 83 y/o F with PMH dementia, HLD, who presents today for AMS and change in baseline today. Per family, yesterday, pt was at her baseline mental status. She was cheerful, able to ambulate with assistance and was acting as herself. Today, pt was not as responsive, and was found in the kitchen with a cup of detergent. Family lives with her and is unsure whether she drank the detergent or not. Pt had no recent changes in medication, no falls. Has a home health aid 5 days a week during the daytime. Per aid, pt also was not alert today and had feces on her back after a BM. Also had decreased appetite. Otherwise, did not have GHOSH, fever ,chills, SOB, chest pain or pressure or changes in urinary or bowel function. However per son, his "mother is not a complainer." PMH: as above PsxH: denies meds: namenda, vitamin C, MTV allergies: NKDA FH: denies SH: never worked; [place]. smoked when she was younger. no alcohol or drug use. Vitals 05/09/19 11:06 Temperature 98.4 F Pulse Rate 84 Respiratory 16 Rate Blood Pressure 119/73 Physical Exam general: pleasant, cheerful. in NAD HEENT: NCAT neck: supple cardio: S1, S2 RRR. no r/m/g pulm: CTA b/l abdomen: soft, nontender, obese, nondistended LE: 2+ pulses. 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 otherwise unremarkable CXR: without acute changes Assessment/Plan 83 y/o F with PMH dementia, HLD, who presents today for AMS and change in baseline today. Pt was found to have a UTI. #AMS -in geriatric, could be 2/2 many factors: sundowning from dementia, cognitive impairment, polypharmacy, infection, hypercapnia, head trauma, met encephalopathy, electrolyte derangements -in this pt, likely 2/2 urinary tract infection -c/w ceftriaxone 1g IVPB qd, f/u Ucx -f/u TSH/b12 -IVF as with volume depletion -fall precautions #dementia -at baseline, may be sundowning -c/w namenda #HLD -was taken off statin per family -c/t monitor #F/E/N IV NS 75 cc/hr continue to follow lytes NPO, speech/swallow #PPX DVT: SCD's #Dispo admit to med-surg <Yolanda Delarosa - Last Filed: 05/09/19 17:53> - Note Progress Note: please note that this is a history and physical document that was fiiled in error under the title 'progress note.' For billing and patient care purposes please treat the entirety of this document as the history and physical for this admission. Thanks Seen and examined; discussed at length with resident team and indicated consultants. Independently reviewed all maldonado historical, PE, diagnostic, and imaging findings. Agree with above documentation and assessment and plan as documented by resident aside from as supplemented below. Was seen acting oddly by family and brought in. Poor historian and she has a language barrier and will say Hebrew words intermixed with faroese. She is pleasant and not acutely agitated but it is clear that she lacks capacity. 10 sys ROS done and negative aside from HPI VS labs imaging reviewed NAD, AAO resting in bed NC AT EOMI PERRLA Wheezes throughout bilaterally but present air motion, w/ sym exp HR wnl +s1/2 NT ND +BS CN2-12 wnl, no progressive neuro sx Normal mood, appropriate behavior, restricted insight and judgement due to underlying medical condition. EKG, CT head reviewed (acute on chronic sinusitis?) No history of MDROs in blood or urine. A/P: Patient presents with confusion from home; she has no focal neuro deficits but does have a +UA and likely is altered due to a toxic metabolic encephalopathy. We will do overnight neuro checks and monitor on the medicine service and consider neurology consult if not improved. Empriric ceftriaxone Acute metabolic encephalopathy secondary to TME 2/2 UTI Acute cystitis Underlying dementia with acute behavioral disturbance Hx HLD, not on statin Obesity (BMI >30) Physical deconditioning Consulting PT; will likely require placement. Will Discuss code status with family <Santi Paul - Last Filed: 05/10/19 23:05>
[2019-05-09] MEDS: SODIUM CHLORIDE 1,000 ML IV SCH (18:58)
--- NOTE | 2019-05-09 19:49 | PDOC ---
Documentation entered by Lauro Cutler SCRIBE, acting as scribe for Haley Rowell MD. Haley Rowell MD: This documentation has been prepared by the Omayra tipton Nirvannie, SCRIBE, under my direction and personally reviewed by me in its entirety. I confirm that the documentation accurately reflects all work, treatment, procedures, and medical decision making performed by me. Attending Attestation - Resident Resident Name: Jamie Reed - ED Attending Attestation I have performed the following: I have examined & evaluated the patient, The case was reviewed & discussed with the resident, I agree w/resident's findings & plan, Exceptions are as noted - HPI HPI: 05/09/19 12:37 Agree with resident HPI - Physicial Exam PE: 05/09/19 19:47 Agree with resident exam - Medical Decision Making 05/09/19 16:47 83yo F presents to the ED with AMS W/u remarkable for UTI CTH negative Pt covered with ctx - no prev + cultures Clinically stable Given AMS and infection, will admit for continued IV abx PT admitted for further mgmt
[2019-05-09] MEDS ORDERED: PT OWN MED DRAWER 7, Y5N ONE (21:09)
[2019-05-09] MEDS: MEMANTINE HCL 10 MG TABLET (FP) PO SCH (22:00)
[2019-05-10 01:46] VITALS: BMI 30.5
[2019-05-10 07:24] LABS: BASO % 0.5 % (0-2.0); EOS % 1.2 % (0-4.5); HEMATOCRIT 37.4 % (32.4-45.2); HEMOGLOBIN 12.4 GM/dL (10.7-15.3); LYMPH % 32.4 % (8-40); MCH 28.1 pg (25.7-33.7); MCHC 33.1 g/dl (32.0-36.0); MEAN CELL VOLUME 84.8 fl (80-96); MEAN PLT VOLUME 10.4 fl (7.5-11.1); MONO % 13.1 % (3.8-10.2); NEUT % 52.8 % (42.8-82.8); PLATELET COUNT 169 K/MM3 (134-434); RBC 4.41 M/mm3 (3.60-5.2); RDW 16.4 % (11.6-15.6); WHITE BLOOD COUNT 5.5 K/mm3 (4.0-10.0)
[2019-05-10 07:47] LABS: BLOOD UREA NITROGEN 19.2 mg/dL (7-18); CALCIUM 8.7 mg/dL (8.5-10.1); MAGNESIUM 2.3 mg/dL (1.8-2.4); PHOSPHOROUS 3.5 mg/dL (2.5-4.9)
[2019-05-10] MEDS ORDERED: cefTRIAXone SODIUM 1 GM VIAL ONE (08:27)
[2019-05-10] MEDS ORDERED: DEXTROSE 5%-WATER - 50 ML IVPB ONE (08:28)
[2019-05-10] MEDS: MEMANTINE HCL 10 MG TABLET (FP) PO SCH ×2 (09:15→21:53)
[2019-05-10] MEDS: MULTIVITAMINS (DAILY MVI) TABLET (FP) PO SCH (09:15)
[2019-05-10] MEDS: CEFTRIAXONE 1 GM in DEXTROSE 5%-WATER - 50 ML IVPB SCH (09:15)
--- NOTE | 2019-05-10 12:13 | CONSULT ---
Admitting History and Physical - Primary Care Physician PCP: Santi Palu - Admission History of Present Illness: Per EMR- 83 y/o F with PMH dementia, HLD, who presents today for AMS and change in baseline today. Per family, yesterday, pt was at her baseline mental status. She was cheerful, able to ambulate with assistance and was acting as herself. Today, pt was not as responsive, and was found in the kitchen with a cup of detergent. Family lives with her and is unsure whether she drank the detergent or not. Pt had no recent changes in medication, no falls. Has a home health aid 5 days a week during the daytime. Per aid, pt also was not alert today and had feces on her back after a BM. Also had decreased appetite. Otherwise, did not have GHOSH, fever ,chills, SOB, chest pain or pressure or changes in urinary or bowel function. However per son, his "mother is not a complainer." Found to have UTI. NPO History Source: Medical Record Limitations to Obtaining History: Clinical Condition, Language Barrier - Past Medical History Cardiovascular: Yes: HTN Gastrointestinal: Yes: GERD Renal/: Yes: Other (NO HX of Dz) ...: No Heme/Onc: Yes: Anemia, Other (see HPI) Psych: Yes: Other (Confusion x 2 months see HPI) Musculoskeletal: Yes: Other (Fatigue as per dtr see HPI) - Past Surgical History Past Surgical History: Yes: Cholecystectomy - Smoking History Smoking history: Unknown if ever smoked Have you smoked in the past 12 months: No If you are a former smoker, when did you quit?: 50 years ago - Alcohol/Substance Use Hx Alcohol Use: No History - Admission Reason For Visit: Altered Mental Status - General Mental Status: Awake and Alert, Able to Follow Commands Attention: Intact Ability to Follow Directions: Good Head/Neck Control: Good - Hearing Hearing: Normal Hearing Aide: No With Patient: No Speech Evaluation - Communication Primary Language: TURKISH Communication: Yes: Simple Responses, Language Barrier - Speech Characteristics Voice Loudness: Normal Voice Pitch: Yes: Normal Voice Phonatory-based Quality: Yes: Normal Nasal Resonance: Hypernasal Articulation: Yes: Precise - Swallow Evaluation/Bedside Assessment Current Nutritional Intake: NPO Oral Secretions: Yes: WFL Dentition: Yes: Edentulous Facial Symmetry at Rest: Symmetrical Facial Symmetry on Retraction: Symmetrical Against Resistance Opening: Normal Against Resistance Closing: Normal Pucker Lips: Normal Smile: Normal Lingual Movement: Normal, Symmetric Lingual Speed of Movement: Normal Lingual Movement Strgth Against Opposition: Normal Lingual Movement Characteristics: Normal Velopharyngeal Movement: Normal Laryngeal Elevation: WFL Laryngeal Movement: Able to Palpate Rate of Intake: WFL Bolus Size: WFL Labial Seal: WFL Oral Prep Time: WFL A-P Transit: WFL Pocketing: None Coughing/Throat Clear: No Change in Voice: No Recommendations - Speech Evaluation, Impression/Plan Impression: brisk swallow. (-)3 oz water test - Dysphagia Impressions/Plan Dysphagia Impressions: No Impairment *Silent aspiration: cannot be R/O at bedside Dysphagia Treatment Plan: Elevate HOB during feed Recommendations: Other (Monitor tolerance) - Recommendations Diet Consistency: Dysphagia Pureed Medication Administration: Whole with water Liquids: Thin Liquids
[2019-05-10] MEDS: SODIUM CHLORIDE 1,000 ML IV SCH ×2 (13:12→21:53)
--- NOTE | 2019-05-10 13:22 | EKG ---
Test Reason : Blood Pressure : / mmHG Vent. Rate : 097 BPM Atrial Rate : 097 BPM P-R Int : 162 ms QRS Dur : 076 ms QT Int : 394 ms P-R-T Axes : 024 -47 045 degrees QTc Int : 500 ms POOR DATA QUALITY, INTERPRETATION MAY BE ADVERSELY AFFECTED SINUS RHYTHM WITH FREQUENT PREMATURE VENTRICULAR COMPLEXES LEFT ANTERIOR FASCICULAR BLOCK CANNOT RULE OUT INFERIOR INFARCT (CITED ON OR BEFORE 09-MAR-2019) ABNORMAL ECG WHEN COMPARED WITH ECG OF 09-MAR-2019 11:00, PREMATURE VENTRICULAR COMPLEXES ARE NOW PRESENT Confirmed by HASEEB BOYD MD ([id number]) on 05/10/2019 1:22:24 PM Referred By: Confirmed By:HASEEB BOYD MD
--- NOTE | 2019-05-10 17:41 | PN ---
Progress Note (short form) - Note Progress Note: Hospitalist Medicine [place]. States she feels "good." Otherwise without complaint. No acute events overnight. Vitals 05/10/19 05/10/19 10:00 15:13 Temperature 98.2 F Pulse Rate 84 Respiratory 16 Rate Blood Pressure 134/70 Physical Exam general: pleasant, cheerful. in NAD, resting HEENT: NCAT neck: supple cardio: S1, S2 RRR. no r/m/g pulm: CTA b/l abdomen: soft, nontender, obese, nondistended LE: 2+ pulses. 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 otherwise unremarkable CXR: without acute changes Assessment/Plan 83 y/o F with PMH dementia, HLD, who presents today for AMS and change in baseline today. Pt was found to have a UTI. #AMS 2/2 UTI -c/w ceftriaxone 1g IVPB qd. should also cover sinusitis. -ucx (+) for non lact fermenting gnb >100,000. awaiting c+s then can switch coverage -f/u TSH/b12 -IVF as with volume depletion -fall precautions, PT #dementia -at baseline, may be sundowning -c/w namenda #HLD -was taken off statin per family -c/t monitor #F/E/N IV NS 75 cc/hr continue to follow lytes dysphagia pureed diet. thin liquids #PPX DVT: SCD's #Dispo cont'd monitoring on med surg pending c+s for urine cx PT
--- NOTE | 2019-05-10 23:07 | PN ---
Progress Note (short form) - Note Progress Note: Seen and examined; discussed at length with resident team and indicated consultants. Independently reviewed all maldonado historical, PE, diagnostic, and imaging findings. Agree with above documentation and assessment and plan as documented by resident aside from as supplemented below. Resident note still being edited in system so please refer to this as my addendum. Pleasantly confused slightly improved though. Ucx growing GNB >100k pending species and culture 10 sys ROS done and negative aside from HPI VS labs imaging reviewed NAD, AAO resting in bed NC AT EOMI PERRLA Wheezes throughout bilaterally but present air motion, w/ sym exp HR wnl +s1/2 NT ND +BS CN2-12 wnl, no progressive neuro sx Normal mood, appropriate behavior, restricted insight and judgement due to underlying medical condition. EKG, CT head reviewed (acute on chronic sinusitis?) No history of MDROs in blood or urine. A/P: Patient presents with confusion from home; she has no focal neuro deficits but does have a +UA and likely is altered due to a toxic metabolic encephalopathy. We will do overnight neuro checks and monitor on the medicine service and consider neurology consult if not improved. Empriric ceftriaxone continued. She is improved. Acute metabolic encephalopathy secondary to TME 2/2 UTI Acute cystitis Underlying dementia with acute behavioral disturbance Hx HLD, not on statin Obesity (BMI >30) Physical deconditioning Consulting PT; will likely require placement. Will Discuss code status with family Visit type - Emergency Visit Emergency Visit: Yes ED Registration Date: 05/09/19 Care time: The patient presented to the Emergency Department on the above date and was hospitalized for further evaluation of their emergent condition. - New Patient This patient is new to me today: No - Critical Care Critical Care patient: No
[2019-05-11] MEDS ORDERED: DEXTROSE 5%-WATER - 50 ML IVPB ONE (08:46)
[2019-05-11] MEDS ORDERED: cefTRIAXone SODIUM 1 GM VIAL ONE (08:46)
[2019-05-11] MEDS: CEFTRIAXONE 1 GM in DEXTROSE 5%-WATER - 50 ML IVPB SCH (09:56)
[2019-05-11] MEDS: MULTIVITAMINS (DAILY MVI) TABLET (FP) PO SCH (09:57)
[2019-05-11] MEDS: MEMANTINE HCL 10 MG TABLET (FP) PO SCH ×2 (09:57→22:00)
[2019-05-11] MEDS: SODIUM CHLORIDE 1,000 ML IV SCH (09:59)
[2019-05-11 10:03] LABS: BASO % 0.4 % (0-2.0); EOS % 1.6 % (0-4.5); HEMATOCRIT 37.4 % (32.4-45.2); HEMOGLOBIN 12.5 GM/dL (10.7-15.3); LYMPH % 32.3 % (8-40); MCH 28.5 pg (25.7-33.7); MCHC 33.3 g/dl (32.0-36.0); MEAN CELL VOLUME 85.4 fl (80-96); MEAN PLT VOLUME 10.5 fl (7.5-11.1); MONO % 11.8 % (3.8-10.2); NEUT % 53.9 % (42.8-82.8); PLATELET COUNT 163 K/MM3 (134-434); RBC 4.38 M/mm3 (3.60-5.2); RDW 16.3 % (11.6-15.6); WHITE BLOOD COUNT 5.4 K/mm3 (4.0-10.0)
[2019-05-11 10:27] LABS: BLOOD UREA NITROGEN 12.6 mg/dL (7-18); CALCIUM 8.8 mg/dL (8.5-10.1); CREATININE 0.8 mg/dL (0.55-1.3); MAGNESIUM 2.1 mg/dL (1.8-2.4); PHOSPHOROUS 3.3 mg/dL (2.5-4.9); POTASSIUM 4.1 mmol/L (3.5-5.1)
--- NOTE | 2019-05-11 12:53 | PN ---
Progress Note, Physician History of Present Illness: Patient seen and examined at bedside. I spoke to the patient in tajik. She endorses some pain suprapubically. Still not completely oriented but alert and awake and in good spirits. Possible she is back to baseline as she does have a history of dementia. No fever or chills. no nausea vomiting chest pain or SOB. UCx with proteus mirabilis sensitive to ceftriaxone. - Current Medication List Current Medications: Active Medications Sodium Chloride (Normal Saline -) 1,000 mls @ 75 mls/hr IV ASDIR [facility] Last Admin: 05/11/19 09:59 Dose: Not Given Ceftriaxone Sodium 1 gm/ (Dextrose) 50 mls @ 100 mls/hr IVPB DAILY [facility] Last Admin: 05/11/19 09:56 Dose: 100 mls/hr Memantine (Namenda -) 10 mg PO BID [facility] Last Admin: 05/11/19 09:57 Dose: 10 mg Multivitamins/Minerals/Vitamin C (Tab-A-Vit -) 1 tab PO DAILY [facility] Last Admin: 05/11/19 09:57 Dose: 1 tab - Objective Vital Signs: Vital Signs Temperature 97.9 F 05/11/19 09:58 Pulse Rate 83 05/11/19 09:58 Respiratory Rate 18 05/11/19 09:58 Blood Pressure 115/74 05/11/19 09:58 O2 Sat by Pulse Oximetry (%) 98 05/10/19 20:43 Constitutional: Yes: Well Nourished, No Distress, Calm Eyes: Yes: Conjunctiva Clear, EOM Intact HENT: Yes: Atraumatic Neck: Yes: Supple Cardiovascular: Yes: Pulse Irregular, Other (EKG Sinus with PVCs) Respiratory: Yes: CTA Bilaterally Gastrointestinal: Yes: Soft. No: Distention, Tenderness Edema: No Neurological: Yes: Alert Psychiatric: Yes: Alert. No: Oriented (knows she is in the hospital but doesnt know which one. Thinks it is 2014. knows it is the end of the year but not the month.) Labs: CBC, BMP 05/11/19 07:32 05/11/19 07:32 INR, PTT INR 1.09 (0.83-1.09) 05/09/19 12:15 - ....Imaging Chest X-ray: Report Reviewed Cat Scan: Report Reviewed Impression/Plan Impression/Plan: 83 y/o F with PMH dementia, HLD, who presented to the ER with toxic metabolic encephelopathy secondary to Proteus mirabilis UTI. Metabolic encephalopathy secondary to UTI continue ceftriaxone UCx shows proteus mirabilis TSH and B12 WNL dementia likely at baseline continue namenda HLD diet controlled Stop IVF PPX DVT: SCD's PT consult noted-home with home PT and VNS likely discharge in 24hours Visit type - Emergency Visit Emergency Visit: Yes ED Registration Date: 05/09/19 Care time: The patient presented to the Emergency Department on the above date and was hospitalized for further evaluation of their emergent condition. - New Patient This patient is new to me today: Yes Date on this admission: 05/11/19 - Critical Care Critical Care patient: No
[2019-05-12] MEDS ORDERED: cefTRIAXone SODIUM 1 GM VIAL ONE (09:53)
[2019-05-12] MEDS ORDERED: DEXTROSE 5%-WATER - 50 ML IVPB ONE (09:54)
[2019-05-12] MEDS: CEFTRIAXONE 1 GM in DEXTROSE 5%-WATER - 50 ML IVPB SCH (10:04)
[2019-05-12] MEDS: MULTIVITAMINS (DAILY MVI) TABLET (FP) PO SCH (10:04)
[2019-05-12] MEDS: MEMANTINE HCL 10 MG TABLET (FP) PO SCH (10:05)
--- NOTE | 2019-05-12 12:39 | DS ---
Physical Examination Vital Signs: Vital Signs Temperature 98.6 F 05/12/19 05:34 Pulse Rate 80 05/12/19 05:34 Respiratory Rate 18 05/12/19 05:34 Blood Pressure 118/80 05/12/19 05:34 O2 Sat by Pulse Oximetry (%) 97 05/11/19 19:34 Findings/Remarks: Constitutional: Yes: Well Nourished, No Distress, Calm Eyes: Yes: Conjunctiva Clear, EOM Intact HENT: Yes: Atraumatic Neck: Yes: Supple Cardiovascular: Yes: Pulse Irregular, Other (EKG Sinus with PVCs) Respiratory: Yes: CTA Bilaterally Gastrointestinal: Yes: Soft. No: Distention, Tenderness Edema: No Neurological: Yes: Alert Psychiatric: Yes: Alert. No: Oriented (oriented only to self not place or time) Labs: CBC, BMP 05/11/19 07:32 05/11/19 07:32 Discharge Summary Problems reviewed: Yes Reason For Visit: Altered Mental Status Current Active Problems Altered mental state (Acute) UTI (urinary tract infection) (Acute) Hospital Course: 83F who presents to the hospital with acute toxic metabolic encephalopathy found to have a positive UA and urine culture which grew proteus mirabilis. Patient has a history of dementia at baseline which acutely worsened and after treatment she improved back to baseline. She was treated with ceftriaxone and will be discharged with cefuroxime. She is afebrile and vital signs are stable. Condition: Improved - Instructions Diet, Activity, Other Instructions: You were hospitalized because of a urinary tract infection. You were treated with IV antibiotics. Your urine grew proteus mirabilis which is a bacteria. You were treated with IV antibiotics. you will need to picker feeder your antibiotics from the pharmacy and take it to completion. Start the antibiotics tomorrow as we already gave you antibiotics in the hospital today. continue your home medications as prescribed. Referrals: Fran Kebede MD [Staff Physician] - 1 Week Disposition: VNS/HOME HEALTH CARE - Home Medications Comprehensive Discharge Medication List: Ambulatory Orders Memantine HCl [Namenda -] 10 mg PO BID 03/09/19 Ascorbic Acid [Vitamin C -] 500 mg PO DAILY 05/09/19 Multivitamin [Multiple Vitamins] 1 each PO DAILY 05/09/19 Cefuroxime Axetil [Cefuroxime] 250 mg PO BID #6 tablet 05/12/19 This patient is new to me today: No Emergency Visit: Yes ED Registration Date: 05/09/19 Care time: The patient presented to the Emergency Department on the above date and was hospitalized for further evaluation of their emergent condition. Critical Care patient: No - Discharge Referral [facility]erred to [facility] Med P.C.: No
[2019-05-12 17:10] VITALS: BP 112/61; TEMP 98
[2019-05-12 17:11] VITALS: PULSE 76
--- NOTE | 2019-05-13 17:39 | PN ---
Progress Note (short form) - Note Progress Note: called pharmacy and they received the prescription electronically as i resent it this AM the Rx was sent out for delivery to the patient Visit type - Emergency Visit Emergency Visit: Yes ED Registration Date: 05/09/19 Care time: The patient presented to the Emergency Department on the above date and was hospitalized for further evaluation of their emergent condition. - New Patient This patient is new to me today: No - Critical Care Critical Care patient: No
== END 2019-05-12 16:34 | disposition home health service (06) | DRG 689 ==
LOC: JER 11:05 → JERBED 16:38 → J7W 19:51
PROVIDERS: ADMIT Internal Medicine; ATTEND Internal Medicine
DX: N39.0 Urinary tract infection, site not specified (principal); G93.41 Metabolic encephalopathy; F03.91 Unspecified dementia, unspecified severity, with behavioral disturbance; E78.5 Hyperlipidemia, unspecified; F03.90 Unspecified dementia, unspecified severity, without behavioral disturbance, psychotic disturbance, mood disturbance, and anxiety; E66.9 Obesity, unspecified; Z68.30 Body mass index [BMI] 30.0-30.9, adult; B96.4 Proteus (mirabilis) (morganii) as the cause of diseases classified elsewhere
CPT/HCPCS: 36415; 70450-TC; 71045-TC-FY; 80048; 80053; 81003; 82607; 83735; 84100; 84443; 84484; 85025; 85610; 85730; 87086; 87186; 93005; 93010; 97116-GP; 97162-GP; 99283-25; J7030

== ENCOUNTER 2019-11-22 12:00 | Emergency (ER) | payer OTHER ==
[2019-11-22 12:07] VITALS: BMI 25.7
--- NOTE | 2019-11-22 12:12 | PDOC ---
Rapid Medical Evaluation Chief Complaint: Weakness Time Seen by Provider: 11/22/19 12:06 Medical Evaluation: Allergies Allergy/AdvReac Type Severity Reaction Status Date / Time No Known Allergies Allergy Verified 11/22/19 12:03 Vital Signs Temp Pulse Resp BP Pulse Ox 98.5 F 77 16 105/69 97 11/22/19 12:04 11/22/19 12:04 11/22/19 12:04 11/22/19 12:04 11/22/19 12:04 11/22/19 12:09 I have performed a brief in-person evaluation of this patient. The patient presents with a chief complaint of:BIB EMS for AMS per family. BP low on scene, quickly improved w IVF enroute. No fever. Romanian speaking (EMS have phone number of family). H/p HLD and dementia Pertinent physical exam findings:stable, alert, NAD I have ordered the following:ekx/cxr/labs/ua The patient will proceed to the ED for further evaluation. 11/22/19 12:12 Discharge Disposition - Diagnosis AMS (altered mental status) Qualifiers: Altered mental status type: unspecified Qualified Code(s): R41.82 - Altered mental status, unspecified - Referrals - Patient Instructions - Post Discharge Activity
[2019-11-22] MEDS ORDERED: SODIUM CHLORIDE 1,000 ML IV SCH (12:45)
--- NOTE | 2019-11-22 12:50 | PDOC ---
History of Present Illness - General Chief Complaint: Weakness Stated Complaint: WEAKNESS Time Seen by Provider: 11/22/19 12:06 - History of Present Illness Initial Comments: 11/22/19 12:50 84 y/o female with a PMHx of Dementia who presents with 2x diarrheal episodes and becoming sweaty and pale lasting shortly after. Daughter reports that something similar happened in the past where she became sweaty and pale but at that time was only found to have a UTI. Family denies any other issues including fever, chest pain, shortness of breath, cough, congestion. No family history of early MO ROS - limited 2/2 dementia PE GENERAL: Awake, alert, in no acute distress HEAD: No signs of trauma, normocephalic, atraumatic EYES: EOMI, sclera anicteric, conjunctiva clear ENT: oropharynx clear without exudates. Moist mucosa NECK: Normal ROM, supple LUNGS: No distress, speaks full sentences, ctab HEART: Regular rate and rhythm, normal S1 and S2, no murmurs, rubs or gallops, peripheral pulses normal and equal bilaterally. ABDOMEN: Soft, nontender. No guarding, no rebound. No masses EXTREMITIES : Normal inspection, Normal range of motion, no edema. No clubbing or cyanosis. NEUROLOGICAL: Cranial nerves II through XII grossly intact. Normal speech, no focal sensorimotor deficits SKIN: Warm, Dry, normal turgor, no rashes or lesions noted Assessment and Plan 84 y/o female with a PMHx of Dementia who presents with 2x diarrheal episodes and becoming sweaty and pale lasting shortly after. Consider vasovagal episode, r/o acs, r/o infectious vs intracranial pathology - cbc, cmp, coags, trop, bnp - ekg, cxr CXR: new cardiomegaly Discussed at length with family, they desire to AMA the patient as they are concerned for COVID. Dr. Merchant at bedside, discussed case, will pursue echo and ct chest in ER CT chest Mild cardiomegaly is noted without definite interval change in comparison to CT of 06/03/2016. Dense atherosclerotic coronary artery calcifications are visualized. There is no discrete infiltrate. As on the prior exam a stable subcentimeter mildly dilated airspace is noted within the left upper lobe possibly representing focal bronchiectasis versus a persistent slightly thick walled air containing cavity. Correlation with 3 month follow-up CT is suggested. Large hiatal hernia as on the prior exam. ECHO Moderate LA enlargement; Moderate , at least mild AR. Ascending aorta 3.7cm Daughter informed of all updates and results Patient to be discharged with Cardiology follow up Marli Cisneros PGY2 Emergency Medicine Past History - Past Medical History Allergies/Adverse Reactions: Allergies Allergy/AdvReac Type Severity Reaction Status Date / Time No Known Allergies Allergy Verified 11/22/19 12:03 Home Medications: Ambulatory Orders Memantine HCl [Namenda -] 10 mg PO BID 03/09/19 Ascorbic Acid [Vitamin C -] 500 mg PO DAILY 05/09/19 Multivitamin [Multiple Vitamins] 1 each PO DAILY 05/09/19 Cephalexin Monohydrate [Keflex -] 500 mg PO BID 7 Days #14 capsule 11/22/19 Anemia: No Asthma: No Cancer: No Cardiac Disorders: No COPD: No CHF: No Dementia: Yes GI Disorders: Yes (gerd) Disorders: No HTN: Yes Hypercholesterolemia: Yes Liver Disease: No Thyroid Disease: No - Surgical History Abdominal Surgery: No Appendectomy: No Cardiac Surgery: No Cholecystectomy: Yes Lung Surgery: No Neurologic Surgery: No Orthopedic Surgery: No - Immunization History Immunization Up to Date: Yes - Psycho Social/Smoking Cessation Hx Smoking History: Never smoked Have you smoked in the past 12 months: No If you are a former smoker, when did you quit?: 50 years ago Information on smoking cessation initiated: No Hx Alcohol Use: No Drug/Substance Use Hx: No Substance Use Type: None *Physical Exam - Vital Signs Last Vital Signs Temp Pulse Resp BP Pulse Ox 98.5 F 77 16 105/69 96 11/22/19 12:04 11/22/19 12:04 11/22/19 12:04 11/22/19 12:04 11/22/19 12:37 ED Treatment Course - LABORATORY CBC & Chemistry Diagram: 11/22/19 12:00 11/22/19 12:00 - RADIOLOGY Radiology Studies Ordered: Category Date Time Status HEAD CT WITHOUT CONTRAST [CT] Stat CT Scan 11/22/19 12:37 Ordered CXRPORT [CHEST X-RAY PORTABLE*] [RAD] Stat Radiology 11/22/19 12:36 Taken Discharge - Discharge Information Problems reviewed: Yes Clinical Impression/Diagnosis: Near syncope, Cardiomegaly AMS (altered mental status) Qualifiers: Altered mental status type: unspecified Qualified Code(s): R41.82 - Altered mental status, unspecified Condition: Fair Disposition: HOME - Additional Discharge Information Prescriptions: Cephalexin Monohydrate [Keflex -] 500 mg PO BID 7 Days #14 capsule - Follow up/Referral Referrals: Regis Pappas [Primary Care Provider] - [facility] [Provider Group] - Patient Discharge Instructions Additional Instructions: You were seen in the ER for an episode of sweating, diarrhea and paleness You had labwork and imaging that showed some heart enlargement and a urinary tract infection You should follow up with Cardiology, Dr. Merchant within 5 days You have antibiotics sent to your pharmacy which should be taken as prescribed. Return to the ER if you develop repeat episode of sweating and paleness, chest pain, shortness of breath, nausea, or any other concerning symptoms. - Post Discharge Activity
[2019-11-22 12:56] LABS: BASO % 0.2 % (0-2.0); EOS % 0.2 % (0-4.5); HEMATOCRIT 39.8 % (32.4-45.2); HEMOGLOBIN 12.7 GM/dL (10.7-15.3); LYMPH % 13.9 % (8-40); MEAN PLT VOLUME 10.4 fl (7.5-11.1); MONO % 5.6 % (3.8-10.2); NEUT % 80.1 % (42.8-82.8); PLATELET COUNT 296 K/MM3 (134-434); RDW 18.3 % (11.6-15.6); WHITE BLOOD COUNT 10.6 K/mm3 (4.0-10.0)
[2019-11-22 13:02] LABS: INR 1.05 (0.83-1.09); PROTHROMBIN TIME (PATIENT) 12.4 SEC (9.7-13.0)
[2019-11-22 13:04] LABS: ACTIVATED PTT 26.4 SECONDS (25.2-36.5)
[2019-11-22 13:32] LABS: ALBUMIN 3.9 g/dl (3.4-5.0); ALK PHOS 101 U/L (45-117); ANION GAP 10 MMOL/L (8-16); BILIRUBIN,TOTAL 0.8 mg/dL (0.2-1); BLOOD UREA NITROGEN 18.3 mg/dL (7-18); CALCIUM 9.7 mg/dL (8.5-10.1); CHLORIDE 107 mmol/L (98-107); CO2 22 mmol/L (21-32); CREATININE 1.2 mg/dL (0.55-1.3); GLUCOSE,RANDOM 133 mg/dL (74-106); POTASSIUM 4.4 mmol/L (3.5-5.1); SGOT/AST 30 U/L (15-37); SGPT/ALT 31 U/L (13-61); SODIUM 139 mmol/L (136-145); TOT PROT 8.6 g/dl (6.4-8.2)
[2019-11-22 13:48] LABS: EPI CELLS 26 /uL (0-25.1); HYALINE CASTS 3 /uL (0-3.1); PH,URINE 5.5 (5.0-8.0); URINE APPEARANCE TURBID; URINE BILIRUBIN NEGATIVE (NEGATIVE); URINE COLOR YELLOW; URINE GLUCOSE (UA) NEGATIVE (NEGATIVE); URINE KETONE NEGATIVE (NEGATIVE); URINE LEUK ESTERASE 1+ (NEGATIVE); URINE NITRITE NEGATIVE (NEGATIVE); URINE PROTEIN TRACE (NEGATIVE); URINE RBC 18 /uL (0-23.9); URINE UROBILINOGEN 0.2 mg/dL (0.2-1.0); URINE WBC 73 /uL (0-25.8)
[2019-11-22 15:47] LABS: N-TERMINAL BNP 242.9 pg/ml (5-450)
--- NOTE | 2019-11-22 16:27 | PDOC ---
Attending Attestation - Resident Resident Name: Marli Cisneros - ED Attending Attestation I have performed the following: I have examined & evaluated the patient, The case was reviewed & discussed with the resident, I agree w/resident's findings & plan, Exceptions are as noted - HPI HPI: 11/22/19 16:22 84 yo F with h/o hld, dementia. lives at home with a home health aid, and is vietnamese speaking. per pt daughter who provides history, pt aid states she had a loose watery stool, followed by diaphoresis, became altered. but not total loss of consiousness, more confused. lasted several minutes. called EMS on arrival here, pt difficult to understand, appears confused with research assistant ( nurse eriberto) - Physicial Exam PE: 11/22/19 16:24 pt awake , alert . lungs clear bilat heart rrr no mrg abd soft nt nd ext wwp. no edema. no calf tenderness. nuero awake, disoriented. - Medical Decision Making 11/22/19 16:25 84 yo F with h/o hld, dementia, here with near syncopal episode following loose stool pt see desk operator dr squires. pt pcp differential dehydration, vasovagal syncope, infection such as pancreatitis, uti, pna., covid considered as diarrehal illness. hypoglycemia and electrolyte anbomrality possible. plan labs cxr ekg trop. admit to tele pt family unwilling for pt to be admitted due to concerns for covid exposure. explained measures taken in admission to avoid. cxr with cardiomegaly which is new. tawanda evaluated patient in ED. ordered echo and ct chests . pending. 11/22/19 18:49 echo normal EF, no pericardial effusion, mild , mild AR awaiting ct chest. [facility] near syncope for family request. Discharge - Discharge Information Problems reviewed: Yes Clinical Impression/Diagnosis: Near syncope, Cardiomegaly AMS (altered mental status) Qualifiers: Altered mental status type: unspecified Qualified Code(s): R41.82 - Altered mental status, unspecified - Follow up/Referral Referrals: Regis Pappas [Primary Care Provider] - - Patient Discharge Instructions - Post Discharge Activity
[2019-11-22] MEDS ORDERED: CEFTRIAXONE 1,000 MG in DEXTROSE 5%-WATER - 50 ML IVPB ONE (16:28)
--- NOTE | 2019-11-22 17:39 | ECHO ---
Version: 1 Name: IRWIN WHEELER Exam: Adult Echocardiogram Study Date: 11/22/2019, 4:54 PM Age: 84 Years MMode/2D Measurements & Calculations IVSd: 1.08 cm LVIDs: 2.8 cm LVIDd: 3.9 cm LVPWd: 1.01 cm ACS: 1.30 cm Ao root diam: 3.2 cm LVOT diam: 2.02 cm LA dimension: 3.9 cm Doppler Measurements & Calculations MV E max qasim: 97.5 cm/sec Med E/e': 20.0 MV A max qasim: 135.1 cm/sec Med Peak E' Qasim: 4.9 cm/sec MV E/A: 0.72 Lat E/e': 13.7 Lat Peak E' Qasim: 7.1 cm/sec Ao max P.7 mmHg DUSTIN(I,D): 1.25 cm Ao mean P.3 mmHg LV V1 mean: 76.0 cm/sec Ao V2 max: 289.6 cm/sec LV V1 mean P.5 mmHg TR max qasim: 267.3 cm/sec TR max P.6 mmHg Left Ventricle Left ventricular systolic function is normal. Ejection Fraction = 55-60%. E/A reversal consistent wi th but not diagnostic of poor LV compliance. Right Ventricle The right ventricle is normal in size and function. Atria The left atrium is moderately dilated. Mitral Valve There is mild mitral valve thickening. There is mild mitral regurgitation. Tricuspid Valve The tricuspid valve is not well visualized, but is grossly normal. There is mild tricuspid regurgita tion. Aortic Valve Moderate valvular aortic stenosis. Mild to moderate aortic regurgitation. Pulmonic Valve The pulmonic valve is not well seen, but is grossly normal. There is no pulmonic valvular stenosis. Great Vessels Borderline dilated ascending aorta. Pericardium/Pleura There is no pericardial effusion. Tech Comments TDS. Patient unable to lay still. Language barrier. Summary Statements Left ventricular systolic function is normal. Ejection Fraction = 55-60%. The right ventricle is normal in size and function. The left atrium is moderately dilated. There is mild mitral regurgitation. There is mild tricuspid regurgitation. Moderate valvular aortic stenosis. Mild to moderate aortic regurgitation. Borderline dilated ascending aorta. There is no pericardial effusion. MD Ferrell *Mayur 11/22/2019, 5:38 PM Ordering Physician: Ghassan Boyd Referring Physician: GHASSAN BOYD Performed By: Steffany Price
[2019-11-22] MEDS ORDERED: CEFTRIAXONE 1 GM/50 ML BAG ONE (18:17)
--- NOTE | 2019-11-22 18:20 | CON.CARD ---
Consult Consult Specialty:: Cardiology Referred by:: Dr. Iqbal Reason for Consultation:: Cardiomegaly - History of Present Illness Chief Complaint: Cardiomegaly on CXR: consult requested by family and ER attending History of Present Illness: 84 y/o female with a PMHx of Dementia who presents with 2x diarrheal episodes and becoming sweaty and pale lasting shortly after. Daughter reports that something similar happened in the past where she became sweaty and pale but at that time was only found to have a UTI. Family denies any other issues including fever, chest pain, shortness of breath, cough, congestion. No family history of early PR ROS - limited 2/2 dementia CXR Cardiomegaly and tracheal deviation to right. Urine + for UTI Stat echo done to evaluate: Moderate LA enlargement; Moderate , at least mild AR. Ascending aorta 3.7cm Seen and examined in ER. Comfortable. O2 sat 95% room air - History Source History Provided By: Medical Record - Past Medical History Cardio/Vascular: Yes: HTN Gastrointestinal: Yes: GERD Renal/: Yes: Other (NO HX of Dz) Psych: Yes: Other (Confusion x 2 months see HPI) Musculoskeletal: Yes: Other (Fatigue as per dtr see HPI) - Past Surgical History Past Surgical History: Yes: Cholecystectomy - Alcohol/Substance Use Hx Alcohol Use: No - Smoking History Smoking history: Never smoked Have you smoked in the past 12 months: No If you are a former smoker, when did you quit?: 50 years ago - Social History Usual Living Arrangement: With Child History of Recent Travel: No Home Medications - Allergies Allergies/Adverse Reactions: Allergies Allergy/AdvReac Type Severity Reaction Status Date / Time No Known Allergies Allergy Verified 11/22/19 12:03 - Home Medications Home Medications: Ambulatory Orders Memantine HCl [Namenda -] 10 mg PO BID 03/09/19 Ascorbic Acid [Vitamin C -] 500 mg PO DAILY 05/09/19 Multivitamin [Multiple Vitamins] 1 each PO DAILY 05/09/19 Family Medical History Family History: Unremarkable (non-contributory to this presentation) Review of Systems Findings/Remarks: see HPI and ER records - Review of Systems Constitutional: reports: Weakness Eyes: reports: No Symptoms HENT: reports: No Symptoms Neck: reports: No Symptoms Cardiovascular: reports: No Symptoms Respiratory: reports: No Symptoms Gastrointestinal: reports: Diarrhea Genitourinary: reports: No Symptoms Breasts: reports: No Symptoms Reported Musculoskeletal: reports: No Symptoms Integumentary: reports: No Symptoms Neurological: reports: Confusion Endocrine: reports: No Symptoms Hematology/Lymphatic: reports: No Symptoms Psychiatric: reports: No Symptoms - Risk Factors Known Risk Factors: Yes: Age, Hypertension Vital Signs: Vital Signs Temperature 98.5 F 11/22/19 12:04 Pulse Rate 85 11/22/19 14:36 Respiratory Rate 16 11/22/19 14:36 Blood Pressure 101/59 L 11/22/19 14:36 O2 Sat by Pulse Oximetry (%) 96 11/22/19 14:36 Constitutional: Yes: No Distress, Calm Eyes: Yes: Conjunctiva Clear, EOM Intact HENT: Yes: Atraumatic, Normocephalic Neck: Yes: Supple, Trachea Midline Respiratory: Yes: CTA Bilaterally (no rales or wheezing) Gastrointestinal: Yes: Soft (NT) Cardiovascular: Yes: Regular Rate and Rhythm JVD: No Carotid Bruit: No Heart Sounds: Yes: S1, S2 Murmur: Yes: Systolic Murmur (2/6 LUIZ apex) Edema: No Peripheral Pulses WNL: Yes Neurological: Yes: Confusion ...Motor Strength: WNL - Other Data Labs, Other Data: CBC, BMP 11/22/19 12:00 11/22/19 12:00 INR, PTT INR 1.05 (0.83-1.09) 11/22/19 12:00 Troponin, BNP 11/22/19 12:00 Troponin I < 0.02 B-Natriuretic Peptide 242.9 Troponin, BNP 11/22/19 12:00 Troponin I < 0.02 B-Natriuretic Peptide 242.9 Laboratory Tests 11/22/19 16:30 COVID-19 ([place]) Pending NSR, LAHB. Echo: Image Reviewed Ejection Fraction %: LVEF > or = 40 % Imaging - Results Chest X-ray: Image Reviewed EKG: Image Reviewed Assessment/Plan IMP: Probable UTI Diarrhea: r/o COVID, possible other viral syndrome Cardiomegaly Tracheal deviation Aortic stenosis Dementia Chronic HTN, hypertensive heart disease REC: 1. UTI: -abx as per ER, PMD -F/u /urine cx 2. Diarrhea: -COVID pending -Possibly other viral syndrome, viral gastroenteritis -If does not resolve, consider C.Diff especially if recent courses of Abx 3. Cardiomegaly: marked on CXR -Echo showed no effusion, but moderate LA dilatation likely result of longstanding HTN -Await Chest CT 4. Tracheal deviation on CXR: -Await non-contrast Chest CT 5. Aortic stenosis: -Moderate -No further intervention required; outpatient f/u 6. HTN: likely chronic hypertensive heart dz/ LA enlargement -BP now lowish/soft in setting diarrhea and UTI -Encourage hydration -Monitor BP closely as outpatient 7. Dementia: as per PMD If patient remains hemodynamically stable and chest CT is benign, acceptable for discharge with outpatient f/u w/ PMD early next week and with cardiology in 2-3 weeks to establish outpatient care.
[2019-11-22 19:41] VITALS: BP 133/95; PULSE 96; TEMP 98.3
== END 2019-11-22 19:42 | disposition home or self-care (01) ==
LOC: JER 12:00
PROC: 3E033GC Introduction of Other Therapeutic Substance into Peripheral Vein, Percutaneous Approach (ICD-10-PCS; principal; 2019-11-22)
DX: R55 Syncope and collapse (principal); R41.82 Altered mental status, unspecified; I51.7 Cardiomegaly
CPT/HCPCS: 36415; 70450-TC; 71045-TC-FY; 71250-TC; 80053; 81003; 82550; 83880; 84484; 85025; 85610; 85730; 87077; 87086; 93306-TC; 99285-25; C9803; U0003

== ENCOUNTER 2020-03-13 12:11 | Inpatient (IN) | payer OTHER ==
--- NOTE | 2020-03-13 12:57 | PDOC ---
History of Present Illness - General Chief Complaint: Pain Stated Complaint: BP PROBLEM/LT LEG PAIN Time Seen by Provider: 03/13/20 12:56 History Source: Patient, Other (Daughter) Exam Limitations: Dementia, Language Barrier - History of Present Illness Initial Comments: 03/13/20 13:06 84 y.o. Sinhala speaking F PMHx dementia presenting to the ED due to 2 days of malasie and unsteady gait. Pts. history was given by the daughter. For the past 2 days the patient has been having increased difficulty walking, at baseline she is able to walk on her own or with some assistance. Pt. has been having increased lethargy, sleeping more and a decreased appetite. Patient lives with the son and has a home health aid. Pt. Denies fever, chills, chest pain, SOB, N/V/D. PCP: Dr. Pappas PMHx: Dementia Meds: In Chart Allergies: NKDA Dispo: Admission to med surg 03/13/20 18:14 Is this a multiple visit Asthma Patient?: No Timing/Duration: 24 hours Severity: mild Associated Symptoms: reports: malaise Aspirin Received prior to arrival: Yes: unknown Beta Nette Contraindications(Core Measure): Yes: Not Prescribed Beta Nette Given by EMS(Core Measure): No Beta Nette Taken at Home(Core Measure): No Beta Nette Not Indicated at this Time(Core Measure): Yes Past History - Travel History Traveled outside of the country in the last 30 days: No Close contact w/someone who was outside of country & ill: No - Medical History Allergies/Adverse Reactions: Allergies Allergy/AdvReac Type Severity Reaction Status Date / Time No Known Allergies Allergy Verified 03/13/20 12:29 Home Medications: Ambulatory Orders Memantine HCl [Namenda -] 10 mg PO BID 03/09/19 Ascorbic Acid [Vitamin C -] 500 mg PO DAILY 05/09/19 Multivitamin [Multiple Vitamins] 1 each PO DAILY 05/09/19 Anemia: No Asthma: No Cancer: No Cardiac Disorders: No COPD: No CHF: No Dementia: Yes GI Disorders: Yes (gerd) Disorders: No HTN: Yes Hypercholesterolemia: Yes Liver Disease: No Thyroid Disease: No - Surgical History Abdominal Surgery: No Appendectomy: No Cardiac Surgery: No Cholecystectomy: Yes Lung Surgery: No Neurologic Surgery: No Orthopedic Surgery: No - Immunization History Immunization Up to Date: Yes - Psycho-Social/Smoking History Smoking History: Unknown if ever smoked Have you smoked in the past 12 months: No If you are a former smoker, when did you quit?: 50 years ago Review of Systems - Review of Systems Constitutional: No: Chills, Fever HEENTM: No: Blurred Vision, Double Vision Respiratory: No: Cough, Shortness of Breath Cardiac (ROS): No: Chest Pain, Lightheadedness ABD/GI: No: Constipated, Diarrhea, Nausea, Vomiting : No: Burning, Dysuria Musculoskeletal: Yes: Muscle Weakness. No: Back Pain Integumentary: Yes: Bruising. No: Dryness, Erythema, Sweating Neurological: No: Headache, Numbness, Tingling, Dizziness Hematologic/Lymphatic: No: Easy Bleeding, Easy Bruising *Physical Exam - Vital Signs Last Vital Signs Temp Pulse Resp BP Pulse Ox 98 F 90 18 132/78 97 03/13/20 12:25 03/13/20 12:25 03/13/20 12:25 03/13/20 12:25 03/13/20 12:25 - Physical Exam General Appearance: Yes: Nourished, Appropriately Dressed. No: Apparent Distress Respiratory/Chest: positive: Lungs Clear, Normal Breath Sounds. negative: Chest Tender, Respiratory Distress, Accessory Muscle Use, Crackles, Rales, Wheezing Cardiovascular: positive: Regular Rhythm, Regular Rate Gastrointestinal/Abdominal: positive: Normal Bowel Sounds, Tender, Flat, Soft, Tenderness. negative: Organomegaly, Pulsatile Mass, Distended, Guarding, Rebound, Hernia Musculoskeletal: positive: Normal Inspection. negative: CVA Tenderness Extremity: positive: Normal Inspection, Tender (L LE) Integumentary: positive: Normal Color, Dry, Warm, Ecchymosis Neurologic: positive: Fully Oriented, Alert, Normal Mood/Affect, Normal Response ED Treatment Course - LABORATORY CBC & Chemistry Diagram: 03/14/20 06:00 03/14/20 06:00 Medical Decision Making - Medical Decision Making 03/13/20 13:14 84 y.o. Sinhala speaking F PMHx dementia presenting to the ED due to 2 days of malaise and unsteady gait. DDx: UTI, Fall, AMS Labs: K+ 6.2 repeat 3.8 UA: >9000 bacteria, trace leuk esterase CXR: Enlarged heart, elevated R hemidiaphragm, increased lung markings, possible congestion/ atelectasis on the left CT Femur/Pelvis: degenerative changes, vascular calcifications, possible lesser trochanter freacture CT head: No acute evidence of intracranial pathology EKG: NSR, LAD, nonspecific t wave abnormality Dispo: Admission to med surg. Signed out to Dr. Ryan 03/13/20 18:15 03/14/20 14:07 Discharge - Discharge Information Problems reviewed: Yes Clinical Impression/Diagnosis: UTI (urinary tract infection) Qualifiers: Urinary tract infection type: site unspecified Hematuria presence: without hematuria Qualified Code(s): N39.0 - Urinary tract infection, site not specified - Admission Yes - Follow up/Referral - Patient Discharge Instructions - Post Discharge Activity
[2020-03-13] MEDS ORDERED: ACETAMINOPHEN 1000 MG/100 ML VIAL (NON FORMULARY) IVPB ONE (13:27)
[2020-03-13] MEDS ORDERED: ACETAMINOPHEN INJECTION 100 ML IVPB ONE (13:28)
[2020-03-13 13:51] LABS: BASO % 0.3 % (0-2.0); EOS % 1.2 % (0-4.5); HEMATOCRIT 35.5 % (32.4-45.2); HEMOGLOBIN 11.3 GM/dL (10.7-15.3); LYMPH % 20.4 % (8-40); MCH 23.9 pg (25.7-33.7); MCHC 31.9 g/dl (32.0-36.0); MEAN PLT VOLUME 10.1 fl (7.5-11.1); MONO % 11.5 % (3.8-10.2); NEUT % 66.6 % (42.8-82.8); PLATELET COUNT 202 K/MM3 (134-434); RBC 4.74 M/mm3 (3.60-5.2); RDW 19.2 % (11.6-15.6)
--- NOTE | 2020-03-13 14:08 | PDOC ---
Documentation entered by Jennifer Marin SCRIBE, acting as scribe for Angy Horton MD. Angy Horton MD: This documentation has been prepared by the scribeTomas Lincy, SCRIBE, under my direction and personally reviewed by me in its entirety. I confirm that the documentation accurately reflects all work, treatment, procedures, and medical decision making performed by me. Attending Attestation - Resident Resident Name: YoungFarshad - ED Attending Attestation I have performed the following: I have examined & evaluated the patient, The case was reviewed & discussed with the resident, I agree w/resident's findings & plan, Exceptions are as noted - HPI HPI: 03/13/20 13:46 The patient is an 84 year old female with a past medical history significant for dementia who presents to the emergency department with increased lethargy, decreased appetite, and difficulty ambulating. The patient presents with 2 days of increased lethargy, difficulty ambulating (baseline the patient is able to am bulate by self or with assistance), and decreased appetite. Denies fever, chills, nausea, vomiting, diarrhea, chest pain or shortness of breath. The patient is Frisian speaking, history obtained via daughter. - Physicial Exam PE: 03/13/20 14:05 General: well appearing HEENT: NCAT Extremities: warm and well perfused, no bony tenderness, no pelvic instability, flexion/extension at knees and hips intact Neuro: awake, alert unable to assess gait, face symmetric, able to move all extremities freely - Medical Decision Making 03/13/20 14:06 84 yo F with R leg pain, no bony tenderness or calf tenderness or unilateral leg swelling, very unliekly DVT or fx, more likely sprain/contusion. Will also check labs, urine and cxr to r/o occult infection. Plan: -labs -urine -cxr -CT head -pelvis xray -xray R femur/knee/tib/fib -pain control as needed -reassess This clinical encounter is taking place during a federal and state health care emergency attributable to the novel [place] Virus pandemic. The [place] of the Department of Health and Human Services has declared, pursuant to the Public Health Service Act 319F-3 (42 U.S.C. 247d-6d), that a covered persons activities related to medical countermeasures against COVID-19 will be immune from liability under Federal and State law. 03/13/20 15:24 Pt. signed out to incoming team Discharge - Discharge Information Problems reviewed: Yes Clinical Impression/Diagnosis: UTI (urinary tract infection) Qualifiers: Urinary tract infection type: site unspecified Hematuria presence: without hematuria Qualified Code(s): N39.0 - Urinary tract infection, site not specified - Follow up/Referral - Patient Discharge Instructions - Post Discharge Activity
--- OUTSIDE RECORDS SUMMARY | 2020-03-13 14:08 | XMS ---
:1935 [facility] Support Name Relationship Address Phone RE, RETIRED Unavailable Unavailable Unavailable RE Unavailable Unavailable Unavailable DESTIN WHEELER DAUGHTER [address] [place] [address] MARILYN WHEELER SON [address] [place] [address] RETIRED Unavailable Unavailable Unavailable MARILYN WHEELER Parent [address] [place] [address] Re-disclosure Warning The records that you are about to access may contain information from federally- assisted alcohol or drug abuse programs. If such information is present, then the following federally mandated warning applies: This information has been disclosed to you from records protected by federal confidentiality rules (42 CFR part 2). The federal rules prohibit you from making any further disclosure of this information unless further disclosure is expressly permitted by the written consent of the person to whom it pertains or as otherwise permitted by 42 CFR part 2. A general authorization for the release of medical or other information is NOT sufficient for this purpose. The Federal rules restrict any use of the information to criminally investigate or prosecute any alcohol or drug abuse patient.The records that you are about to access may contain highly sensitive health information, the redisclosure of which is protected by Article 27-F of the [facility] Public Health law. If you continue you may haveaccess to information: Regarding HIV / AIDS; Provided by facilities licensed or operated by the [facility] Office of Mental Health; or Provided by the [facility] Office for People With Developmental Disabilities. If such information is present, then the following [facility] mandated warning applies: This information has been disclosed to you from confidential records which are protected by state law. State law prohibits you from making any further disclosure of this information without the specific written consent of the person to whom it pertains, or as otherwise permitted by law. Any unauthorized further disclosure in violation of state law may result in a fine or mcfp sentence or both. A general authorization for the release of medical or other information is NOT sufficient authorization for further disclosure. Encounters Encounter Providers Location Date Indications Data Source(s ) Emergency H 02/13/2019 08:03:00 [facility] EDT - 02/13/2019 Alvaro ramos 09:45:00 AM EDT Patient discharged. Insurance Providers Payer name Policy type Policy ID Covered Covered republican's Policy P magdalena / Coverage republican ID relationship to [place] ormation type [place] MED[place] [id number] SP [id number] MEDICARE [id number] SP [id number] 99 9 O Problems, Conditions, and Diagnoses Code Display Name Description Problem Type Effective Dates Data Source(s) R41.82 Altered mental ALTERED MENTAL Diagnosis 02/13/2019 [facility] status, STATUS, 08:03:00 AM EDT Medical C enter unspecified UNSPECIFIED F03.90 Unspecified UNSPECIFIED Diagnosis 02/13/2019 [facility] dementia without DEMENTIA WITHOUT 08:03:00 AM [facility] behavioral BEHAVIORAL disturbance DISTURBANCE Results ID Date Data Source [id number] 11/22/2019 04:30:00 PM EDT [facility] Name Value Range Interpretation Description Data Sup porting Code Source(s) Document(s ) SARS [facility] CORONAVIRUS 2 RNA This lab was ordered by [facility] and reported by [facility]. Procedure Social History Code Duration Value Status Description Data Source(s ) Smoking 02/13/2019 08:49:00 AM Not Known [facility] [place] [facility] 02/13/2019 08:21:00 AM Not Known completed Not Known [facility] [place] Vital Signs ID Date Data Source UNK Name Value Range Interpretation Code Description Data Source(s) Systolic blood 148 mm[Hg] 148 mm[Hg] [facility] pressure [facility] Diastolic blood 72 mm[Hg] 72 mm[Hg] [facility] pressure [facility] Heart rate 95 /min 95 /min [facility] Oxygen saturation 97 % 97 % [facility] osephs in Arterial blood Medical Center by Pulse oximetry Respiratory rate 19 /min 19 /min [facility] Body temperature 36.773490 [id number] [facility]
[2020-03-13 14:36] LABS: ALBUMIN 3.2 g/dl (3.4-5.0); ALK PHOS 76 U/L (45-117); BLOOD UREA NITROGEN 16.8 mg/dL (7-18); CALCIUM 8.9 mg/dL (8.5-10.1); CHLORIDE 108 mmol/L (98-107); CO2 24 mmol/L (21-32); CREATININE 0.9 mg/dL (0.55-1.3); GLUCOSE,RANDOM 97 mg/dL (74-106); SGOT/AST 86 U/L (15-37); SGPT/ALT 32 U/L (13-61); SODIUM 136 mmol/L (136-145); TOT PROT 7.6 g/dl (6.4-8.2)
[2020-03-13 14:39] LABS: ANION GAP 4 MMOL/L (8-16)
[2020-03-13 14:40] LABS: POTASSIUM 6.2 mmol/L (3.5-5.1)
--- NOTE | 2020-03-13 15:14 | EKG ---
Test Reason : Blood Pressure : / mmHG Vent. Rate : 081 BPM Atrial Rate : 081 BPM P-R Int : 150 ms QRS Dur : 084 ms QT Int : 388 ms P-R-T Axes : 019 -40 040 degrees QTc Int : 450 ms NORMAL SINUS RHYTHM LEFT AXIS DEVIATION NONSPECIFIC T WAVE ABNORMALITY ABNORMAL ECG WHEN COMPARED WITH ECG OF 09-MAY-2019 11:22, PREMATURE VENTRICULAR COMPLEXES ARE NO LONGER PRESENT Confirmed by HASEEB BOYD MD ([id number]) on 03/13/2020 3:14:20 PM Referred By: Confirmed By:HASEEB BOYD MD
[2020-03-13 16:25] LABS: EPI CELLS 22 /uL (0-25.1); HYALINE CASTS 1 /uL (0-3.1); PH,URINE 6.5 (5.0-8.0); URINE APPEARANCE CLOUDY; URINE BACTERIA >9,000 /uL (0-1359); URINE BILIRUBIN NEGATIVE (NEGATIVE); URINE COLOR YELLOW; URINE GLUCOSE (UA) NEGATIVE (NEGATIVE); URINE KETONE NEGATIVE (NEGATIVE); URINE LEUK ESTERASE TRACE (NEGATIVE); URINE NITRITE NEGATIVE (NEGATIVE); URINE PROTEIN NEGATIVE (NEGATIVE); URINE RBC 2 /uL (0-23.9); URINE WBC 43 /uL (0-25.8)
[2020-03-13] MEDS ORDERED: CEFTRIAXONE 1,000 MG in DEXTROSE 5%-WATER - 50 ML IVPB ONE (17:42)
[2020-03-13] MEDS ORDERED: cefTRIAXone SODIUM 1 GM VIAL ONE (18:21)
--- OUTSIDE RECORDS SUMMARY | 2020-03-13 18:45 | XMS ---
:1935 [facility] Support Name Relationship Address Phone RE, RETIRED Unavailable Unavailable Unavailable RE Unavailable Unavailable Unavailable DESTIN WHEELER DAUGHTER [address] [place] [address] MARILYN WHEELER SON [address] [place] [address] RETIRED Unavailable Unavailable Unavailable MARILYN WHEELER Parent [address] [place] [address] Re-disclosure Warning The records that you are [...] protected by Article 27-F of the [facility] Public Health law. If you continue you may haveaccess to information: Regarding HIV / AIDS; Provided by facilities licensed or operated by the [facility] Office of Mental Health; or Provided by the [facility] Office for People With Developmental Disabilities. If such information is present, then the following [facility] mandated warning applies: This information has [...] law may result in a fine or fdc sentence or both. A general authorization for the release of medical or other information is NOT sufficient authorization for further disclosure. Encounters Encounter Providers Location Date Indications Data Source(s ) Emergency H 02/13/2019 08:03:00 [facility] EDT - 02/13/2019 [facility] ramos 09:45:00 AM EDT Patient discharged. Insurance Providers Payer name Policy type Policy ID Covered Covered alliance party's Policy P magdalena / Coverage alliance party ID relationship to [place] Inf ormation type [place] MEDICA[place] [id number] SP [id number] MEDICARE [id number] SP [id number] 99 9 O Problems, Conditions, and Diagnoses Code Display Name Description Problem Type Effective Dates Data Source(s) R41.82 Altered mental ALTERED MENTAL Diagnosis 02/13/2019 [facility] status, STATUS, 08:03:00 AM EDT Medical C enter unspecified UNSPECIFIED F03.90 Unspecified UNSPECIFIED Diagnosis 02/13/2019 [facility] dementia without DEMENTIA WITHOUT 08:03:00 AM [facility] behavioral BEHAVIORAL disturbance DISTURBANCE Results ID Date Data Source [id number] 11/22/2019 04:30:00 PM EDT [facility] Name Value Range Interpretation Description Data Sup porting Code Source(s) Document(s ) SARS [facility] CORONAVIRUS 2 RNA This lab was ordered by [facility] and reported by [facility]. Procedure Social History Code Duration Value Status Description Data Source(s ) Smoking 02/13/2019 08:49:00 AM Not Known completed [facility] [place] [facility] 02/13/2019 08:21:00 AM Not Known completed Not Known [facility] [place] Vital Signs ID Date Data Source UNK Name Value Range Interpretation Code Description Data Source(s) Systolic blood 148 mm[Hg] 148 mm[Hg] [facility] pressure [facility] Diastolic blood 72 mm[Hg] 72 mm[Hg] [facility] pressure [facility] Heart rate 95 /min 95 /min [facility] Oxygen saturation 97 % 97 % [facility] osephs in Arterial blood [facility] by Pulse oximetry Respiratory rate 19 /min 19 /min [facility] Body temperature 36.682087 36.023731 Violet[facility]
--- NOTE | 2020-03-13 18:50 | PN ---
Teaching Attending Note Name of Resident: Guilherme Patel ATTENDING PHYSICIAN STATEMENT I saw and evaluated the patient. I reviewed the resident's note and discussed the case with the resident. I agree with the resident's findings and plan as documented. SUBJECTIVE: OBJECTIVE: ASSESSMENT AND PLAN:
--- NOTE | 2020-03-13 19:22 | HP ---
CHIEF COMPLAINT: AMS/altered gait PCP: Dr. Pappas HISTORY OF PRESENT ILLNESS: 84 y/o female PMH HLD and dementia brought in by family after noticing 2 days of inability to walk and unusual conversation. The AMS has occurred in the past; last admission acute metabolic encephalpopahthy 2/2 proteus uti treated effectively with ceftriaxone. Altered gait has never occurred before. 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 Family reports that they notice mother has been unable to walk normally (uses walker) or refusing to walk. She denies h/o fall or trauma. She denies urinary incontinence and dysuria. She denies etoh use. No CP, GHOSH, SOB, joint pain, vision changes, numbness, tingling. ROS NEG and pt in very jovial disposition (laughing/giggling throughout interview). ER course was notable for: (1) CT head no acute pathology (2) Difficulty acquiring radiographs 2/2 pt moving/requiring family to enter suite (3) XR: RIGHT lesser trochanter francture Recent Travel: denies PAST MEDICAL HISTORY: HLD, dementia Family history: denies PAST SURGICAL HISTORY: Cholecystectomy Social History: Smoking: former 30 years of smoking Alcohol: denies Drugs: denies home help aide Allergies No Known Allergies Allergy (Verified 03/13/20 12:29) HOME MEDICATIONS: Medication Instructions Recorded Memantine HCl [Namenda -] 10 mg PO BID 03/09/19 Ascorbic Acid [Vitamin C -] 500 mg PO DAILY 05/09/19 Multivitamin [Multiple Vitamins] 1 each PO DAILY 05/09/19 REVIEW OF SYSTEMS CONSTITUTIONAL: Absent: fever, chills, diaphoresis, generalized weakness, malaise, loss of appetite, weight change HEENT: Absent: rhinorrhea, nasal congestion, throat pain, throat swelling, difficulty swallowing, mouth swelling, ear pain, eye pain, visual changes CARDIOVASCULAR: Absent: chest pain, syncope, palpitations, irregular heart rate, lightheadedness, peripheral edema RESPIRATORY: Absent: cough, shortness of breath, dyspnea with exertion, orthopnea, wheezing, stridor, hemoptysis GASTROINTESTINAL: Absent: abdominal pain, abdominal distension, nausea, vomiting, diarrhea, constipation, melena, hematochezia GENITOURINARY: Absent: dysuria, frequency, urgency, hesitancy, hematuria, flank pain, genital pain MUSCULOSKELETAL: Absent: myalgia, arthralgia, joint swelling, back pain, neck pain SKIN: Absent: rash, itching, pallor HEMATOLOGIC/IMMUNOLOGIC: Absent: easy bleeding, easy bruising, lymphadenopathy, frequent infections ENDOCRINE: Absent: unexplained weight gain, unexplained weight loss, heat intolerance, cold intolerance NEUROLOGIC: Absent: headache, focal weakness or paresthesias, dizziness, unsteady gait, seizure, mental status changes, bladder or bowel incontinence PSYCHIATRIC: Absent: anxiety, depression, suicidal or homicidal ideation, hallucinations. PHYSICAL EXAMINATION Vital Signs - 24 hr 03/13/20 12:25 Temperature 98 F Pulse Rate 90 Respiratory 18 Rate Blood Pressure 132/78 O2 Sat by Pulse 97 Oximetry (%) GENERAL: Awake, alert, and fully oriented x3 Luxembourgish speaking with family at bedside, in no acute distress. HEAD: Normal with no signs of trauma. EYES: Pupils equal, round and reactive to light, extraocular movements intact, sclera anicteric, conjunctiva clear. No lid lag. EARS, NOSE, THROAT: Ears normal, nares patent, oropharynx clear without exudates. Moist mucous membranes. NECK: Normal range of motion, supple without lymphadenopathy, JVD, or masses. LUNGS: Breath sounds equal, clear to auscultation bilaterally. No wheezes, and no crackles. No accessory muscle use. HEART: Regular rate and rhythm, normal S1 and S2 without murmur, rub or gallop. ABDOMEN: Soft, nontender, not distended, normoactive bowel sounds, no guarding, no rebound, no masses. No hepatomegaly or splenomegaly. MUSCULOSKELETAL: Normal range of motion at all joints. No bony deformities or tenderness. No CVA tenderness. UPPER EXTREMITIES: 2+ pulses, warm, well-perfused. No cyanosis. No clubbing. No peripheral edema. LOWER EXTREMITIES: 2+ pulses, warm, well-perfused. No calf tenderness. No peripheral edema. NEUROLOGICAL: Cranial nerves II-XII intact. Normal speech. Pt not participating in gait assessment. PSYCHIATRIC: Cooperative. Good eye contact. Appropriate mood and affect. SKIN: Warm, dry, normal turgor, no rashes or lesions noted, normal capillary refill. Laboratory Results - last 24 hr 03/13/20 03/13/20 03/13/20 01:35 01:35 16:05 WBC 8.0 RBC 4.74 Hgb 11.3 Hct 35.5 MCV 75.0 L MCH 23.9 L MCHC 31.9 L RDW 19.2 H Plt Count 202 D MPV 10.1 Absolute Neuts (auto) 5.3 Neutrophils % 66.6 Lymphocytes % 20.4 D Monocytes % 11.5 H D Eosinophils % 1.2 D Basophils % 0.3 Nucleated RBC % 0 Sodium 136 Potassium 6.2 H* Chloride 108 H Carbon Dioxide 24 Anion Gap 4 L BUN 16.8 Creatinine 0.9 Est GFR (CKD-EPI)AfAm 67.10 Est GFR (CKD-EPI)NonAf 57.90 Random Glucose 97 Calcium 8.9 Total Bilirubin 1.0 AST 86 H ALT 32 Alkaline Phosphatase 76 Troponin I < 0.02 Total Protein 7.6 Albumin 3.2 L Urine Color Yellow Urine Appearance Cloudy Urine pH 6.5 Ur Specific [place] 1.010 Urine Protein Negative Urine Glucose (UA) Negative Urine Ketones Negative Urine Blood Negative Urine Nitrite Negative Urine Bilirubin Negative Urine Urobilinogen 1.0 Ur Leukocyte Esterase Trace Urine WBC (Auto) 43 Urine RBC (Auto) 2 Urine Casts (Auto) 1 U Epithel Cells (Auto) 22 Urine Bacteria (Auto) >9,000 03/13/20 16:20 WBC RBC Hgb Hct MCV MCH MCHC RDW Plt Count MPV Absolute Neuts (auto) Neutrophils % Lymphocytes % Monocytes % Eosinophils % Basophils % Nucleated RBC % Sodium Potassium 3.8 Chloride Carbon Dioxide Anion Gap BUN Creatinine Est GFR (CKD-EPI)AfAm Est GFR (CKD-EPI)NonAf Random Glucose Calcium Total Bilirubin AST ALT Alkaline Phosphatase Troponin I Total Protein Albumin Urine Color Urine Appearance Urine pH Ur Specific [place] Urine Protein Urine Glucose (UA) Urine Ketones Urine Blood Urine Nitrite Urine Bilirubin Urine Urobilinogen Ur Leukocyte Esterase Urine WBC (Auto) Urine RBC (Auto) Urine Casts (Auto) U Epithel Cells (Auto) Urine Bacteria (Auto) ASSESSMENT/PLAN: 84 y/o female PMH HLD and dementia brought in by family after noticing 2 days of inability to walk and unusual conversation. Pt found to have 9k+ bacteria and trace LE in urine. hip/pelvis radigraph demonstrating RIGHT lesser trochanter fracture. # Acute metabolic encephalopathy 2/2 UTI - Ceftriaxone 1g qd - F/u urine culture - Last hospital admission demonstrated proteus culture and symptoms resolved with ceftriaxone treatment # RIGHT intertrochanteric fracture - Bedrest, non weight bearing - Consult orthopedic surgery - CT RLE due to poor radiograph # Transaminitis - AST/ALT 86/32 - No history supporting etoh abuse or benzodiazepine abuse - RUQ US # FEN - PO - Cont. to monitor and replete - Regular diet # DVT ppx - SCD # Disposition - Admit to med/surg Family Medical History Family History: As Documented Visit type - Medication Review Med list reviewed for High Risk Meds patients 65 and older: Yes - Emergency Visit Emergency Visit: Yes ED Registration Date: 03/13/20 Care time: The patient presented to the Emergency Department on the above date and was hospitalized for further evaluation of their emergent condition. - New Patient This patient is new to me today: Yes Date on this admission: 03/14/20 - Critical Care Critical Care patient: No ATTENDING PHYSICIAN STATEMENT I saw and evaluated the patient. I reviewed the resident's note and discussed the case with the resident. I agree with the resident's findings and plan as documented. SUBJECTIVE: OBJECTIVE: ASSESSMENT AND PLAN:
[2020-03-14 06:26] LABS: BASO % 0.4 % (0-2.0); EOS % 0.7 % (0-4.5); HEMATOCRIT 36.9 % (32.4-45.2); HEMOGLOBIN 11.9 GM/dL (10.7-15.3); LYMPH % 22.5 % (8-40); MCH 23.5 pg (25.7-33.7); MCHC 32.1 g/dl (32.0-36.0); MEAN CELL VOLUME 73.2 fl (80-96); MEAN PLT VOLUME 9.6 fl (7.5-11.1); MONO % 10.9 % (3.8-10.2); NEUT % 65.5 % (42.8-82.8); PLATELET COUNT 214 K/MM3 (134-434); RBC 5.05 M/mm3 (3.60-5.2); RDW 19.4 % (11.6-15.6); WHITE BLOOD COUNT 9.1 K/mm3 (4.0-10.0)
[2020-03-14 07:03] LABS: ALBUMIN 3.6 g/dl (3.4-5.0); BILIRUBIN,TOTAL 0.8 mg/dL (0.2-1); BLOOD UREA NITROGEN 11.8 mg/dL (7-18); CALCIUM 8.7 mg/dL (8.5-10.1); CREATININE 0.7 mg/dL (0.55-1.3); MAGNESIUM 2.2 mg/dL (1.8-2.4); PHOSPHOROUS 3.2 mg/dL (2.5-4.9); POTASSIUM 3.6 mmol/L (3.5-5.1); TOT PROT 7.5 g/dl (6.4-8.2)
[2020-03-14] MEDS ORDERED: DEXTROSE 5%-WATER - 50 ML IVPB ONE (13:23)
[2020-03-14] MEDS ORDERED: cefTRIAXone SODIUM 1 GM VIAL ONE (13:23)
[2020-03-14] MEDS: CEFTRIAXONE 1 GM in DEXTROSE 5%-WATER - 50 ML IVPB SCH (13:27)
[2020-03-14] MEDS: MEMANTINE HCL 10 MG TABLET (FP) PO SCH ×3 (13:29→22:20)
--- NOTE | 2020-03-14 16:10 | CONSULT ---
Consult Consult Specialty:: Orthopedics - History of Present Illness Chief Complaint: Right hip/thigh pain History of Present Illness: 84y/o female c/o right thigh pain. She came to the ER yesterday after 2 days of not feeling well and difficulty walking. She was admitted and had an x-ray of the hip which was questionable for a right femur lesser trochanteric fracture. She subsequently had a CT scan. She has been on bed rest. She did not fall or have any injury. She is being treated for a UTI. She has no prior surgical history to the right hip. No other associated, aggravating or relieving factors. - History Source History Provided By: Patient, Family Member, Medical Record - Past Medical History Cardio/Vascular: Yes: HTN Gastrointestinal: Yes: GERD Renal/: Yes: Other (NO HX of Dz) Psych: Yes: Other (Confusion x 2 months see HPI) Musculoskeletal: Yes: Other (Fatigue as per dtr see HPI) - Past Surgical History Past Surgical History: Yes: Cholecystectomy - Alcohol/Substance Use Hx Alcohol Use: No - Smoking History Smoking history: Unknown if ever smoked Have you smoked in the past 12 months: No If you are a former smoker, when did you quit?: 50 years ago - Social History Usual Living Arrangement: With Child History of Recent Travel: No Home Medications - Allergies Allergies/Adverse Reactions: Allergies Allergy/AdvReac Type Severity Reaction Status Date / Time No Known Allergies Allergy Verified 03/13/20 12:29 - Home Medications Home Medications: Ambulatory Orders Memantine HCl [Namenda -] 10 mg PO BID 03/09/19 Ascorbic Acid [Vitamin C -] 500 mg PO DAILY 05/09/19 Multivitamin [Multiple Vitamins] 1 each PO DAILY 05/09/19 Review of Systems - Review of Systems Constitutional: reports: No Symptoms Eyes: reports: No Symptoms HENT: reports: No Symptoms Neck: reports: No Symptoms Cardiovascular: reports: No Symptoms Respiratory: reports: No Symptoms Gastrointestinal: reports: No Symptoms Genitourinary: reports: No Symptoms Breasts: reports: No Symptoms Reported Musculoskeletal: reports: No Symptoms Integumentary: reports: No Symptoms Neurological: reports: No Symptoms Endocrine: reports: No Symptoms Hematology/Lymphatic: reports: No Symptoms Psychiatric: reports: No Symptoms Physical Exam Vital Signs: Vital Signs Temperature 99.1 F 03/14/20 14:09 Pulse Rate 96 H 03/14/20 14:09 Respiratory Rate 18 03/14/20 14:09 Blood Pressure 114/81 03/14/20 14:09 O2 Sat by Pulse Oximetry (%) 97 03/14/20 09:49 Constitutional: Yes: Well Nourished, No Distress, Calm HENT: Yes: Atraumatic, Normocephalic Extremities: Yes: Other (Right LE: there is no erythema, edema or ecchymosis. There is no tenderness to palpation. She has smooth ROM of the hip without pain. There is no shortening of the extremtiy. Compartments are soft. Full motion of the knee. NVID.) Labs: CBC, BMP 03/14/20 06:00 03/14/20 06:00 Imaging - Results X-ray: Report Reviewed, Image Reviewed Cat Scan: Report Reviewed, Image Reviewed (No fracture. Vascular calfications near the hip.) Assessment/Plan #1 RLE pain -Discussed today's findings and tx options with daughter. There is no surgical indication at this time. Recommend WBAT and physical therapy. Follow up as outpatient as needed.
[2020-03-14 16:41] VITALS: BMI 30.5
[2020-03-15 08:26] LABS: BASO % 0.4 % (0-2.0); EOS % 2.4 % (0-4.5); HEMOGLOBIN 11.1 GM/dL (10.7-15.3); LYMPH % 29.8 % (8-40); MCH 23.6 pg (25.7-33.7); MCHC 31.7 g/dl (32.0-36.0); MEAN CELL VOLUME 74.3 fl (80-96); MONO % 13.5 % (3.8-10.2); NEUT % 53.9 % (42.8-82.8); PLATELET COUNT 214 K/MM3 (134-434); RBC 4.71 M/mm3 (3.60-5.2); RDW 19.2 % (11.6-15.6); WHITE BLOOD COUNT 7.4 K/mm3 (4.0-10.0)
[2020-03-15 09:09] LABS: BLOOD UREA NITROGEN 22.2 mg/dL (7-18); CREATININE 0.9 mg/dL (0.55-1.3); POTASSIUM 3.5 mmol/L (3.5-5.1)
[2020-03-15] MEDS ORDERED: DEXTROSE 5%-WATER - 50 ML IVPB ONE (09:41)
[2020-03-15] MEDS ORDERED: cefTRIAXone SODIUM 1 GM VIAL ONE (09:41)
[2020-03-15] MEDS: MEMANTINE HCL 10 MG TABLET (FP) PO SCH ×2 (10:14→22:32)
[2020-03-15] MEDS: CEFTRIAXONE 1 GM in DEXTROSE 5%-WATER - 50 ML IVPB SCH (11:05)
[2020-03-15] MEDS ORDERED: ALPRAZolam 0.25 MG TABLET PO STA (17:28)
--- NOTE | 2020-03-15 18:55 | PN ---
Progress Note, Physician Chief Complaint: As per daughter , patient is less confused today History of Present Illness: 84 y/o female PMH HLD and dementia brought in by family after noticing 2 days of inability to walk and unusual conversation. Pt found to have 9k+ bacteria and trace LE in urine. hip/pelvis radigraph demonstrating RIGHT lesser trochanter fracture. - Current Medication List Current Medications: Active Medications Ceftriaxone Sodium 1 gm/ (Dextrose) 50 mls @ 100 mls/hr IVPB DAILY [facility] Last Admin: 03/15/20 11:05 Dose: 100 mls/hr Documented by: Memantine (Namenda -) 10 mg PO BID [facility] Last Admin: 03/15/20 10:14 Dose: 10 mg Documented by: - Objective Vital Signs: Vital Signs Temperature 97.5 F L 03/15/20 18:12 Pulse Rate 97 H 03/15/20 18:12 Respiratory Rate 20 03/15/20 18:12 Blood Pressure 105/63 03/15/20 18:12 O2 Sat by Pulse Oximetry (%) 95 03/15/20 18:12 Constitutional: Yes: Well Nourished, No Distress, Calm Eyes: Yes: WNL, Conjunctiva Clear, EOM Intact, Occular Prosthesis HENT: Yes: WNL, Normocephalic Neck: Yes: WNL, Supple, Trachea Midline Cardiovascular: Yes: WNL, Regular Rate and Rhythm Respiratory: Yes: WNL, Regular, CTA Bilaterally, Tachypnea Gastrointestinal: Yes: WNL, Normal Bowel Sounds, Soft Musculoskeletal: Yes: WNL Extremities: Yes: WNL Edema: No Peripheral Pulses WNL: Yes Integumentary: Yes: WNL Neurological: Yes: WNL, Alert, Oriented ...Motor Strength: WNL Psychiatric: Yes: WNL, Alert, Oriented Labs: CBC, BMP 03/15/20 07:20 03/15/20 07:20 Impression/Plan Impression/Plan: 84 y/o female PMH HLD and dementia brought in by family after noticing 2 days of inability to walk and unusual conversation. Pt found to have 9k+ bacteria and trace LE in urine. hip/pelvis radigraph demonstrating RIGHT lesser trochanter fracture. # Acute metabolic encephalopathy 2/2 UTI - Ceftriaxone 1g qd - F/u urine culture - Last hospital admission demonstrated proteus culture and symptoms resolved with ceftriaxone treatment # RIGHT intertrochanteric fracture - Bedrest, non weight bearing - Appreciate orthopedic surgery evaluation, non-operative management # Transaminitis - AST/ALT 86/32-->improved - No history supporting etoh abuse or benzodiazepine abuse - RUQ ultrasound ordered # FEN - PO - Cont. to monitor and replete - Regular diet # DVT prophylaxsis - SCD # Disposition - Admit to med/surg Visit type - Emergency Visit Emergency Visit: Yes ED Registration Date: 03/13/20 Care time: The patient presented to the Emergency Department on the above date and was hospitalized for further evaluation of their emergent condition. - New Patient This patient is new to me today: Yes Date on this admission: 03/15/20 - Critical Care Critical Care patient: No - Discharge Referral Referred to [facility] Med P.C[facility] No - Medication Review Med list reviewed for High Risk Meds patients 65 and older: No
[2020-03-16 09:17] LABS: CALCIUM 8.5 mg/dL (8.5-10.1); CREATININE 0.8 mg/dL (0.55-1.3)
[2020-03-16 09:21] LABS: HEMATOCRIT 33.9 % (32.4-45.2); MCH 24.4 pg (25.7-33.7); MCHC 32.6 g/dl (32.0-36.0); MEAN PLT VOLUME 10.1 fl (7.5-11.1); PLATELET COUNT 205 K/MM3 (134-434); RBC 4.52 M/mm3 (3.60-5.2); RDW 19.6 % (11.6-15.6); WHITE BLOOD COUNT 7.1 K/mm3 (4.0-10.0)
[2020-03-16] MEDS ORDERED: DEXTROSE 5%-WATER - 50 ML IVPB ONE (09:36)
[2020-03-16] MEDS ORDERED: cefTRIAXone SODIUM 1 GM VIAL ONE (09:36)
[2020-03-16] MEDS: CEFTRIAXONE 1 GM in DEXTROSE 5%-WATER - 50 ML IVPB SCH (09:38)
[2020-03-16] MEDS: MEMANTINE HCL 10 MG TABLET (FP) PO SCH (09:38)
[2020-03-16 10:01] VITALS: TEMP 98.4
--- NOTE | 2020-03-16 12:40 | DS ---
Physical Exam: SUBJECTIVE: Patient seen and examined OBJECTIVE: Vital Signs Period Temp Pulse Resp BP Sys/Paez Pulse Ox Last 24 Hr 97.3 F-98.4 F 78-97 20-20 94-105/54-65 93-96 PHYSICAL EXAM GENERAL: The patient is awake, alert, and oriented x1, in no acute distress. HEAD: Normal with no signs of trauma. EYES: PERRL, extraocular movements intact, sclera anicteric, conjunctiva clear. ENT: Ears normal, nares patent, oropharynx clear without exudates, moist mucous membranes. NECK: Trachea midline, full range of motion, supple. LUNGS: Breath sounds equal, clear to auscultation bilaterally, no wheezes, no crackles, no accessory muscle use. HEART: Regular rate and rhythm, S1, S2 without murmur, rub or gallop. ABDOMEN: Soft, nontender, nondistended, normoactive bowel sounds, no guarding, no rebound, no hepatosplenomegaly, no masses. EXTREMITIES: 2+ pulses, warm, well-perfused, no edema. NEUROLOGICAL: Cranial nerves II through XII grossly intact. Normal speech, gait not observed. PSYCH: Normal mood, normal affect. SKIN: Warm, dry, normal turgor, no rashes or lesions noted. LABS Laboratory Results - last 24 hr 03/16/20 03/16/20 07:29 07:29 WBC 7.1 RBC 4.52 Hgb 11.0 Hct 33.9 MCV 75.0 L MCH 24.4 L MCHC 32.6 RDW 19.6 H Plt Count 205 MPV 10.1 Sodium 142 Potassium 4.0 Chloride 110 H Carbon Dioxide 24 Anion Gap 8 BUN 20.0 H Creatinine 0.8 Est GFR (CKD-EPI)AfAm 77.37 Est GFR (CKD-EPI)NonAf 66.76 Random Glucose 98 Calcium 8.5 Laboratory Last Values WBC 7.1 K/mm3 (4.0-10.0) 03/16/20 07:29 RBC 4.52 M/mm3 (3.60-5.2) 03/16/20 07:29 Hgb 11.0 GM/dL (10.7-15.3) 03/16/20 07:29 Hct 33.9 % (32.4-45.2) 03/16/20 07:29 MCV 75.0 fl (80-96) L 03/16/20 07: MCH 24.4 pg (25.7-33.7) L 03/16/20 07: MCHC 32.6 g/dl (32.0-36.0) 03/16/20 07:29 RDW 19.6 % (11.6-15.6) H 03/16/20 07:29 Plt Count 205 K/MM3 (134-434) 03/16/20 07: MPV 10.1 fl (7.5-11.1) 03/16/20 07:29 Absolute Neuts (auto) 4.0 K/mm3 (1.5-8.0) 03/15/20 07:20 Neutrophils % 53.9 % (42.8-82.8) 03/15/20 07:20 Lymphocytes % 29.8 % (8-40) D 03/15/20 07:20 Monocytes % 13.5 % (3.8-10.2) H 03/15/20 07:20 Eosinophils % 2.4 % (0-4.5) D 03/15/20 07:20 Basophils % 0.4 % (0-2.0) 03/15/20 07:20 Nucleated RBC % 0 % (0-0) 03/15/20 07:20 Sodium 142 mmol/L (136-145) 03/16/20 07:29 Potassium 4.0 mmol/L (3.5-5.1) 03/16/20 07:29 Chloride 110 mmol/L (98-107) H 03/16/20 07:29 Carbon Dioxide 24 mmol/L (21-32) 03/16/20 07:29 Anion Gap 8 MMOL/L (8-16) 03/16/20 07:29 BUN 20.0 mg/dL (7-18) H 03/16/20 07:29 Creatinine 0.8 mg/dL (0.55-1.3) 03/16/20 07:29 Est GFR (CKD-EPI)AfAm 77.37 03/16/20 07:29 Est GFR (CKD-EPI)NonAf 66.76 03/16/20 07:29 Random Glucose 98 mg/dL (74-106) 03/16/20 07:29 Calcium 8.5 mg/dL (8.5-10.1) 03/16/20 07:29 Phosphorus 3.2 mg/dL (2.5-4.9) 03/14/20 06:00 Magnesium 2.2 mg/dL (1.8-2.4) 03/14/20 06:00 Total Bilirubin 0.8 mg/dL (0.2-1) 03/14/20 06:00 AST 60 U/L (15-37) H 03/14/20 06:00 ALT 34 U/L (13-61) 03/14/20 06:00 Alkaline Phosphatase 77 U/L (45-117) 03/14/20 06:00 Troponin I < 0.02 ng/ml (0.00-0.05) 03/13/20 01:35 Total Protein 7.5 g/dl (6.4-8.2) 03/14/20 06:00 Albumin 3.6 g/dl (3.4-5.0) 03/14/20 06:00 Urine Color Yellow 03/13/20 16:05 Urine Appearance Cloudy 03/13/20 16:05 Urine pH 6.5 (5.0-8.0) 03/13/20 16:05 Ur Specific [place] 1.010 (1.010-1.035) 03/13/20 16:05 Urine Protein Negative (NEGATIVE) 03/13/20 16:05 Urine Glucose (UA) Negative (NEGATIVE) 03/13/20 16:05 Urine Ketones Negative (NEGATIVE) 03/13/20 16:05 Urine Blood Negative (NEGATIVE) 03/13/20 16:05 Urine Nitrite Negative (NEGATIVE) 03/13/20 16:05 Urine Bilirubin Negative (NEGATIVE) 03/13/20 16:05 Urine Urobilinogen 1.0 mg/dL (0.2-1.0) 03/13/20 16:05 Ur Leukocyte Esterase Trace (NEGATIVE) 03/13/20 16:05 Urine WBC (Auto) 43 /uL (0-25.8) 03/13/20 16:05 Urine RBC (Auto) 2 /uL (0-23.9) 03/13/20 16:05 Urine Casts (Auto) 1 /uL (0-3.1) 03/13/20 16:05 U Epithel Cells (Auto) 22 /uL (0-25.1) 03/13/20 16:05 Urine Bacteria (Auto) >9,000 /uL (0-1359) 03/13/20 16:05 COVID-19 ([place]) Not detected (Not Detected) 03/13/20 20:53 Home Medications Medication Instructions Recorded Memantine HCl [Namenda -] 10 mg PO BID 03/09/19 Ascorbic Acid [Vitamin C -] 500 mg PO DAILY 05/09/19 Multivitamin [Multiple Vitamins] 1 each PO DAILY 05/09/19 HOSPITAL COURSE: 84y/o female with Mhx of dementia c/o right thigh pain. She came to the ER yesterday after 2 days of not feeling well and difficulty walking. She was admitted and had an x-ray of the hip which was questionable for a right femur lesser trochanteric fracture. She subsequently had a CT scan that did not show any fracture, there was large osseous fragment which either resembled old fracture or myositis ossifican. Ortho was consulted and recommend gradual wt bearing and pt. Pt was also reported to have worsening in mental status prior to admission. Pt was found to have UTI (with likely acute metabolic encephalopathy) and was treated with ceftriaxone. Date of Admission:03/13/20 Date of Discharge: 03/16/20 Minutes to complete discharge: 35 Discharge Summary Problems reviewed: Yes Reason For Visit: UTI Current Active Problems UTI (urinary tract infection) (Acute) Condition: Improved - Instructions Diet, Activity, Other Instructions: You were admitted because you were unable to walk. You were suspected to have Right Femur fracture, CT scan did not show fracture. Orthopedic was consulted, and did not recommend any surgical intervention. Physical therapy was recommended. You were also found to have urinary tract infection, and you were treated with Antibiotics. Please, continue taking the rest of your home medications as instructed Please follow up with your primary care physician. if you do not have one you can come to our clinic. Call 911 or Return to the Emergency Department if you have worsening of symptoms. Referrals: Kendrick Thornton PA [Physician Nurse Unit Manager] - Regis Pappas [Primary Care Provider] - Disposition: [facility]/HOME HEALTH CARE - Home Medications Comprehensive Discharge Medication List: Ambulatory Orders Memantine HCl [Namenda -] 10 mg PO BID 03/09/19 Ascorbic Acid [Vitamin C -] 500 mg PO DAILY 05/09/19 Multivitamin [Multiple Vitamins] 1 each PO DAILY 05/09/19 This patient is new to me today: Yes Date on this admission: 03/16/20 Emergency Visit: Yes ED Registration Date: 03/13/20 Care time: The patient presented to the Emergency Department on the above date and was hospitalized for further evaluation of their emergent condition. Critical Care patient: No - Discharge Referral Referred to [facility] Med P.C.: No
[2020-03-16 14:42] VITALS: BP 102/57; PULSE 89
== END 2020-03-16 14:51 | disposition home health service (06) | DRG 689 ==
LOC: JER 12:11 → JERBED 18:11 → J8W 03-14 10:00
PROVIDERS: ATTEND Student in an Organized Health Care Education/Training Program
DX: N39.0 Urinary tract infection, site not specified (principal); G93.41 Metabolic encephalopathy; F03.90 Unspecified dementia, unspecified severity, without behavioral disturbance, psychotic disturbance, mood disturbance, and anxiety; E78.5 Hyperlipidemia, unspecified; R74.0 Nonspecific elevation of levels of transaminase and lactic acid dehydrogenase [LDH]; K21.9 Gastro-esophageal reflux disease without esophagitis
CPT/HCPCS: 36415; 70450-TC; 71045-TC-FY; 72170-TC-FY; 72192-TC; 73552-TC-RT-FY; 73590-TC-RT-FY; 73700-TC-RT; 80048; 80053; 81003; 83735; 84100; 84132; 84484; 85025; 85027; 87077; 87086; 93005; 93010; 97116-GP; 97161-GP; 99285-25; J0131; U0003

== ENCOUNTER 2021-07-29 17:40 | Inpatient (IN) | payer OTHER ==
[2021-07-29] MEDS ORDERED: LACTATED RINGERS SOLUTION 1000 ML INFUS.BAG IV ONE (19:50)
[2021-07-29 20:37] LABS: VENOUS BASE EXCESS -2.4 mmol/L (-2-2); VENOUS PCO2 36.5 mmHg (38-52); VENOUS PH 7.398 (7.310-7.410)
[2021-07-29 20:42] LABS: BASO % 0.2 % (0-2.0); EOS % 0.4 % (0-4.5); HEMATOCRIT 34.5 % (32.4-45.2); LYMPH % 19.7 % (8-40); MCH 23.6 pg (25.7-33.7); MCHC 31.8 g/dl (32.0-36.0); MEAN PLT VOLUME 9.8 fl (7.5-11.1); MONO % 10.3 % (3.8-10.2); NEUT % 69.4 % (42.8-82.8); PLATELET COUNT 212 10^3/uL (134-434); RBC 4.66 M/mm3 (3.60-5.2); RDW 19.2 % (11.6-15.6); WHITE BLOOD COUNT 10.4 K/mm3 (4.0-10.0)
[2021-07-29 21:03] LABS: ALBUMIN 3.5 g/dl (3.4-5.0); BLOOD UREA NITROGEN 18.9 mg/dL (7-18)
[2021-07-29 21:06] LABS: CREATININE 0.9 mg/dL (0.55-1.3)
[2021-07-29 21:07] LABS: TOT PROT 7.3 g/dl (6.4-8.2)
[2021-07-29 21:08] LABS: BILIRUBIN,TOTAL 0.6 mg/dL (0.2-1)
[2021-07-29 21:44] LABS: INR 1.14 (0.83-1.09); PROTHROMBIN TIME (PATIENT) 13.1 SEC (9.7-13.0)
[2021-07-29 21:47] LABS: ACTIVATED PTT 31.3 SECONDS (25.2-36.5)
[2021-07-29] MEDS ORDERED: ACETAMINOPHEN 1000 MG/100 ML BAG IVPB ONE (22:38)
[2021-07-29] MEDS ORDERED: ACETAMINOPHEN INJECTION 100 ML IVPB ONE (22:50)
[2021-07-29 22:55] LABS: EPI CELLS >36 /uL (0-25.1); HYALINE CASTS 10 /uL (0-3.1); PH,URINE 6.5 (5.0-8.0); URINE APPEARANCE TURBID; URINE BACTERIA >9,000 /uL (0-1359); URINE BILIRUBIN NEGATIVE (NEGATIVE); URINE COLOR YELLOW; URINE GLUCOSE (UA) NEGATIVE (NEGATIVE); URINE KETONE NEGATIVE (NEGATIVE); URINE LEUK ESTERASE 3+ (NEGATIVE); URINE NITRITE NEGATIVE (NEGATIVE); URINE PROTEIN TRACE (NEGATIVE); URINE RBC 61 /uL (0-23.9); URINE WBC 3961 /uL (0-25.8)
[2021-07-29] MEDS ORDERED: CEFTRIAXONE 1,000 MG in DEXTROSE 5%-WATER - 50 ML IVPB ONE (23:21)
[2021-07-29] MEDS ORDERED: CEFTRIAXONE 1 GM/50 ML BAG ONE (23:31)
[2021-07-30] MEDS ORDERED: SODIUM CHLORIDE 1,000 ML IV SCH ×2 (03:45→15:30)
[2021-07-30] MEDS ORDERED: CEFTRIAXONE 1 GM in DEXTROSE 5%-WATER - 50 ML IVPB SCH (10:00)
[2021-07-30] MEDS ORDERED: cefTRIAXone SODIUM 1 GM VIAL ONE (13:03)
[2021-07-30] MEDS ORDERED: DEXTROSE 5%-WATER - 50 ML IVPB ONE ×2 (13:03→20:19)
[2021-07-30] MEDS: ENOXAPARIN NA (PORCINE) 40 MG/0.4 ML DISP.SYRIN SQ SCH (13:06)
[2021-07-30] MEDS: MEMANTINE HCL 10 MG TABLET (FP) PO SCH ×2 (13:06→21:26)
[2021-07-30] MEDS: MULTIVITAMINS (DAILY MVI) TABLET (FP) PO SCH (13:07)
[2021-07-30] MEDS ORDERED: SODIUM CHLORIDE 0.9% 500 ML INFUS.BAG IV ONE (14:28)
[2021-07-30] MEDS: ACETAMINOPHEN 1000 MG/100 ML BAG IVPB PRN (15:04)
[2021-07-30 19:15] LABS: BASO % 0.2 % (0-2.0); EOS % 0.2 % (0-4.5); HEMATOCRIT 31.8 % (32.4-45.2); HEMOGLOBIN 10.2 GM/dL (10.7-15.3); LYMPH % 19.1 % (8-40); MCH 23.6 pg (25.7-33.7); MCHC 32.2 g/dl (32.0-36.0); MEAN CELL VOLUME 73.3 fl (80-96); MEAN PLT VOLUME 9.4 fl (7.5-11.1); MONO % 6.7 % (3.8-10.2); NEUT % 73.8 % (42.8-82.8); PLATELET COUNT 175 10^3/uL (134-434); RBC 4.33 M/mm3 (3.60-5.2); RDW 19.8 % (11.6-15.6); WHITE BLOOD COUNT 9.5 K/mm3 (4.0-10.0)
[2021-07-30 19:34] LABS: CALCIUM 8.4 mg/dL (8.5-10.1)
[2021-07-30 19:35] LABS: ALBUMIN 2.8 g/dl (3.4-5.0); BLOOD UREA NITROGEN 12.9 mg/dL (7-18)
[2021-07-30 19:38] LABS: CREATININE 1.1 mg/dL (0.55-1.3)
[2021-07-30 19:39] LABS: TOT PROT 6.3 g/dl (6.4-8.2)
[2021-07-30] MEDS ORDERED: PIPERACILLIN/TAZOBACTAM 3.375 GM VIAL IVPB ONE (20:19)
[2021-07-30] MEDS: PIPERACILLIN/TAZOB 3.375 GM 3.375 GM in DEXTROSE 5%-WATER - 50 ML IVPB SCH (20:36)
[2021-07-30] MEDS: VANCOMYCIN/WATER 1,250 MG/250 ML BAG IVPB SCH (21:11)
[2021-07-31] MEDS ORDERED: PIPERACILLIN/TAZOBACTAM 3.375 GM VIAL IVPB ONE ×3 (01:08→16:29)
[2021-07-31] MEDS ORDERED: DEXTROSE 5%-WATER - 50 ML IVPB ONE ×3 (01:09→16:29)
[2021-07-31] MEDS: ACETAMINOPHEN 1000 MG/100 ML BAG IVPB PRN (01:40)
[2021-07-31] MEDS: PIPERACILLIN/TAZOB 3.375 GM 3.375 GM in DEXTROSE 5%-WATER - 50 ML IVPB SCH ×3 (02:18→17:50)
[2021-07-31] MEDS: VANCOMYCIN/WATER 1,250 MG/250 ML BAG IVPB SCH ×2 (06:32→12:21)
[2021-07-31 09:03] LABS: HEMATOCRIT 30.4 % (32.4-45.2); HEMOGLOBIN 9.6 GM/dL (10.7-15.3); MCH 23.4 pg (25.7-33.7); MCHC 31.4 g/dl (32.0-36.0); MEAN CELL VOLUME 74.5 fl (80-96); MEAN PLT VOLUME 9.7 fl (7.5-11.1); PLATELET COUNT 163 10^3/uL (134-434); RBC 4.08 M/mm3 (3.60-5.2); RDW 19.8 % (11.6-15.6)
[2021-07-31 09:30] LABS: CALCIUM 8.3 mg/dL (8.5-10.1)
[2021-07-31 09:31] LABS: BLOOD UREA NITROGEN 12.3 mg/dL (7-18); MAGNESIUM 2.1 mg/dL (1.8-2.4)
[2021-07-31 09:34] LABS: CREATININE 0.8 mg/dL (0.55-1.3); PHOSPHOROUS 2.7 mg/dL (2.5-4.9)
[2021-07-31] MEDS: MULTIVITAMINS (DAILY MVI) TABLET (FP) PO SCH (10:16)
[2021-07-31] MEDS: MEMANTINE HCL 10 MG TABLET (FP) PO SCH ×2 (10:16→21:05)
[2021-07-31] MEDS: ENOXAPARIN NA (PORCINE) 40 MG/0.4 ML DISP.SYRIN SQ SCH (10:16)
[2021-07-31] MEDS: PANTOPRAZOLE 40 MG TABLET PO SCH (10:20)
[2021-07-31 14:56] VITALS: BMI 30.7
[2021-07-31] MEDS: ACETAMINOPHEN 325 MG TABLET (FP) PO PRN (17:42)
[2021-07-31] MEDS: LACTATED RINGERS SOLUTION 1,000 ML/1,000 ML INFUS.BAG IV SCH (17:51)
[2021-07-31] MEDS: ALBUTEROL SO4 2.5/IPRATROPIUM 0.5 INH SOL 3 ML VIAL.NEB. NEB PRN (18:35)
[2021-07-31] MEDS: SENNOSIDES 8.6MG TABLET (FP) PO SCH (21:05)
[2021-07-31] MEDS: BACITRACIN/POLYMYXIN OPH OINT 3.5 GM TUBE OU SCH (21:05)
[2021-08-01] MEDS ORDERED: PIPERACILLIN/TAZOBACTAM 3.375 GM VIAL IVPB ONE ×3 (01:00→17:35)
[2021-08-01] MEDS ORDERED: DEXTROSE 5%-WATER - 50 ML IVPB ONE ×3 (01:01→17:35)
[2021-08-01] MEDS: PIPERACILLIN/TAZOB 3.375 GM 3.375 GM in DEXTROSE 5%-WATER - 50 ML IVPB SCH ×3 (01:47→18:28)
[2021-08-01] MEDS: LACTATED RINGERS SOLUTION 1,000 ML/1,000 ML INFUS.BAG IV SCH ×2 (04:50→15:46)
[2021-08-01 09:31] LABS: BASO % 0.8 % (0-2.0); EOS % 1.1 % (0-4.5); HEMATOCRIT 30.1 % (32.4-45.2); HEMOGLOBIN 9.8 GM/dL (10.7-15.3); LYMPH % 20.7 % (8-40); MCHC 32.5 g/dl (32.0-36.0); MEAN CELL VOLUME 73.7 fl (80-96); MEAN PLT VOLUME 9.5 fl (7.5-11.1); MONO % 7.7 % (3.8-10.2); NEUT % 69.7 % (42.8-82.8); PLATELET COUNT 169 10^3/uL (134-434); RBC 4.09 M/mm3 (3.60-5.2); RDW 20.4 % (11.6-15.6); WHITE BLOOD COUNT 7.9 K/mm3 (4.0-10.0)
[2021-08-01 09:52] LABS: CALCIUM 8.5 mg/dL (8.5-10.1)
[2021-08-01 09:53] LABS: ALBUMIN 2.7 g/dl (3.4-5.0); BLOOD UREA NITROGEN 11.5 mg/dL (7-18)
[2021-08-01 09:58] LABS: CREATININE 0.9 mg/dL (0.55-1.3)
[2021-08-01 09:59] LABS: BILIRUBIN,TOTAL 1.2 mg/dL (0.2-1)
[2021-08-01 10:00] LABS: TOT PROT 6.2 g/dl (6.4-8.2)
[2021-08-01] MEDS: MULTIVITAMINS (DAILY MVI) TABLET (FP) PO SCH (10:58)
[2021-08-01] MEDS: MEMANTINE HCL 10 MG TABLET (FP) PO SCH ×2 (10:59→23:15)
[2021-08-01] MEDS: BACITRACIN/POLYMYXIN OPH OINT 3.5 GM TUBE OU SCH ×2 (10:59→23:15)
[2021-08-01] MEDS: PANTOPRAZOLE 40 MG TABLET PO SCH (10:59)
[2021-08-01] MEDS: POLYETHYLENE GLYCOL (HEALTHYLAX) 3350 17 GM PACKET PO SCH (10:59)
[2021-08-01] MEDS: ENOXAPARIN NA (PORCINE) 40 MG/0.4 ML DISP.SYRIN SQ SCH (10:59)
[2021-08-01] MEDS: ALBUTEROL SO4 2.5/IPRATROPIUM 0.5 INH SOL 3 ML VIAL.NEB. NEB PRN ×3 (12:30→23:53)
[2021-08-01] MEDS: ACETAMINOPHEN 325 MG TABLET (FP) PO PRN (16:48)
[2021-08-01] MEDS: SENNOSIDES 8.6MG TABLET (FP) PO SCH (23:14)
[2021-08-02] MEDS ORDERED: PIPERACILLIN/TAZOBACTAM 3.375 GM VIAL IVPB ONE ×3 (00:24→17:05)
[2021-08-02] MEDS ORDERED: DEXTROSE 5%-WATER - 50 ML IVPB ONE ×3 (00:24→17:05)
[2021-08-02] MEDS: PIPERACILLIN/TAZOB 3.375 GM 3.375 GM in DEXTROSE 5%-WATER - 50 ML IVPB SCH ×3 (01:17→17:10)
[2021-08-02] MEDS: LACTATED RINGERS SOLUTION 1,000 ML/1,000 ML INFUS.BAG IV SCH ×2 (02:11→17:10)
[2021-08-02 08:16] LABS: BASO % 0.3 % (0-2.0); EOS % 1.9 % (0-4.5); HEMATOCRIT 28.6 % (32.4-45.2); HEMOGLOBIN 9.1 GM/dL (10.7-15.3); LYMPH % 20.3 % (8-40); MCH 23.3 pg (25.7-33.7); MCHC 31.8 g/dl (32.0-36.0); MEAN CELL VOLUME 73.4 fl (80-96); MEAN PLT VOLUME 9.8 fl (7.5-11.1); NEUT % 65.5 % (42.8-82.8); PLATELET COUNT 190 10^3/uL (134-434); WHITE BLOOD COUNT 6.5 K/mm3 (4.0-10.0)
[2021-08-02 08:38] LABS: ALBUMIN 2.6 g/dl (3.4-5.0); CALCIUM 8.6 mg/dL (8.5-10.1)
[2021-08-02 08:39] LABS: BLOOD UREA NITROGEN 8.3 mg/dL (7-18)
[2021-08-02 08:41] LABS: PHOSPHOROUS 3.3 mg/dL (2.5-4.9)
[2021-08-02 08:42] LABS: CREATININE 0.8 mg/dL (0.55-1.3)
[2021-08-02 08:43] LABS: BILIRUBIN,TOTAL 0.8 mg/dL (0.2-1)
[2021-08-02] MEDS: ALBUTEROL SO4 2.5/IPRATROPIUM 0.5 INH SOL 3 ML VIAL.NEB. NEB PRN ×3 (09:35→18:04)
[2021-08-02] MEDS: PANTOPRAZOLE 40 MG TABLET PO SCH (10:47)
[2021-08-02] MEDS: MEMANTINE HCL 10 MG TABLET (FP) PO SCH ×2 (10:47→22:52)
[2021-08-02] MEDS: ENOXAPARIN NA (PORCINE) 40 MG/0.4 ML DISP.SYRIN SQ SCH (10:47)
[2021-08-02] MEDS: MULTIVITAMINS (DAILY MVI) TABLET (FP) PO SCH (10:47)
[2021-08-02] MEDS: POLYETHYLENE GLYCOL (HEALTHYLAX) 3350 17 GM PACKET PO SCH ×2 (10:48→10:56)
[2021-08-02] MEDS: BACITRACIN/POLYMYXIN OPH OINT 3.5 GM TUBE OU SCH ×2 (10:48→21:20)
[2021-08-02] MEDS: ACETAMINOPHEN 325 MG TABLET (FP) PO PRN (12:39)
[2021-08-02] MEDS: SENNOSIDES 8.6MG TABLET (FP) PO SCH (21:20)
[2021-08-03] MEDS ORDERED: DEXTROSE 5%-WATER - 50 ML IVPB ONE ×3 (03:35→16:38)
[2021-08-03] MEDS ORDERED: PIPERACILLIN/TAZOBACTAM 3.375 GM VIAL IVPB ONE ×3 (03:35→16:38)
[2021-08-03] MEDS: PIPERACILLIN/TAZOB 3.375 GM 3.375 GM in DEXTROSE 5%-WATER - 50 ML IVPB SCH ×3 (03:36→17:11)
[2021-08-03 09:01] LABS: HEMATOCRIT 28.7 % (32.4-45.2); HEMOGLOBIN 9.1 GM/dL (10.7-15.3); MCH 23.4 pg (25.7-33.7); MCHC 31.5 g/dl (32.0-36.0); MEAN CELL VOLUME 74.1 fl (80-96); MEAN PLT VOLUME 9.7 fl (7.5-11.1); PLATELET COUNT 202 10^3/uL (134-434); RBC 3.88 M/mm3 (3.60-5.2); RDW 20.4 % (11.6-15.6); WHITE BLOOD COUNT 6.8 K/mm3 (4.0-10.0)
[2021-08-03] MEDS: PANTOPRAZOLE 40 MG TABLET PO SCH (10:05)
[2021-08-03] MEDS: MULTIVITAMINS (DAILY MVI) TABLET (FP) PO SCH (10:05)
[2021-08-03] MEDS: FERROUS SO4 300 MG/5 ML ORAL SOLN UNIT DOSE CUPS PO SCH (10:05)
[2021-08-03] MEDS: POLYETHYLENE GLYCOL (HEALTHYLAX) 3350 17 GM PACKET PO SCH (10:05)
[2021-08-03] MEDS: ENOXAPARIN NA (PORCINE) 40 MG/0.4 ML DISP.SYRIN SQ SCH (10:05)
[2021-08-03] MEDS: BACITRACIN/POLYMYXIN OPH OINT 3.5 GM TUBE OU SCH ×2 (10:06→23:33)
[2021-08-03] MEDS: MEMANTINE HCL 10 MG TABLET (FP) PO SCH ×2 (10:06→23:32)
[2021-08-03 10:13] LABS: ALBUMIN 2.5 g/dl (3.4-5.0); CALCIUM 8.1 mg/dL (8.5-10.1); MAGNESIUM 2.1 mg/dL (1.8-2.4)
[2021-08-03 10:16] LABS: CREATININE 0.8 mg/dL (0.55-1.3); PHOSPHOROUS 3.6 mg/dL (2.5-4.9)
[2021-08-03 10:18] LABS: BILIRUBIN,TOTAL 0.8 mg/dL (0.2-1); TOT PROT 6.1 g/dl (6.4-8.2)
[2021-08-03] MEDS: ALBUTEROL SO4 2.5/IPRATROPIUM 0.5 INH SOL 3 ML VIAL.NEB. NEB PRN (16:25)
[2021-08-03] MEDS: LACTATED RINGERS SOLUTION 1,000 ML/1,000 ML INFUS.BAG IV SCH (17:12)
[2021-08-03] MEDS: SENNOSIDES 8.6MG TABLET (FP) PO SCH (23:32)
[2021-08-04] MEDS ORDERED: PIPERACILLIN/TAZOBACTAM 3.375 GM VIAL IVPB ONE ×3 (00:43→17:37)
[2021-08-04] MEDS ORDERED: DEXTROSE 5%-WATER - 50 ML IVPB ONE ×3 (00:43→17:38)
[2021-08-04] MEDS: PIPERACILLIN/TAZOB 3.375 GM 3.375 GM in DEXTROSE 5%-WATER - 50 ML IVPB SCH ×3 (01:54→17:41)
[2021-08-04] MEDS: MULTIVITAMINS (DAILY MVI) TABLET (FP) PO SCH (09:11)
[2021-08-04] MEDS: PANTOPRAZOLE 40 MG TABLET PO SCH (09:11)
[2021-08-04] MEDS: ENOXAPARIN NA (PORCINE) 40 MG/0.4 ML DISP.SYRIN SQ SCH (09:11)
[2021-08-04] MEDS: FERROUS SO4 300 MG/5 ML ORAL SOLN UNIT DOSE CUPS PO SCH (09:11)
[2021-08-04] MEDS: POLYETHYLENE GLYCOL (HEALTHYLAX) 3350 17 GM PACKET PO SCH (09:11)
[2021-08-04] MEDS: ACETAMINOPHEN 325 MG TABLET (FP) PO PRN (09:12)
[2021-08-04] MEDS: BACITRACIN/POLYMYXIN OPH OINT 3.5 GM TUBE OU SCH ×2 (09:12→22:52)
[2021-08-04 09:13] LABS: BASO % 0.3 % (0-2.0); HEMATOCRIT 28.5 % (32.4-45.2); HEMOGLOBIN 9.1 GM/dL (10.7-15.3); LYMPH % 17.5 % (8-40); MCH 23.2 pg (25.7-33.7); MCHC 31.8 g/dl (32.0-36.0); MEAN CELL VOLUME 72.8 fl (80-96); MEAN PLT VOLUME 9.6 fl (7.5-11.1); NEUT % 69.2 % (42.8-82.8); PLATELET COUNT 227 10^3/uL (134-434); RBC 3.92 M/mm3 (3.60-5.2); RDW 19.9 % (11.6-15.6); WHITE BLOOD COUNT 8.3 K/mm3 (4.0-10.0)
[2021-08-04] MEDS: MEMANTINE HCL 10 MG TABLET (FP) PO SCH ×2 (11:02→22:12)
[2021-08-04 12:32] LABS: EPI CELLS 8 /uL (0-25.1); HYALINE CASTS 0 /uL (0-3.1); URINE APPEARANCE CLOUDY; URINE BACTERIA 784 /uL (0-1359); URINE BILIRUBIN NEGATIVE (NEGATIVE); URINE COLOR YELLOW; URINE GLUCOSE (UA) NEGATIVE (NEGATIVE); URINE KETONE NEGATIVE (NEGATIVE); URINE LEUK ESTERASE TRACE (NEGATIVE); URINE NITRITE NEGATIVE (NEGATIVE); URINE PROTEIN NEGATIVE (NEGATIVE); URINE UROBILINOGEN 0.2 mg/dL (0.2-1.0); URINE WBC 2 /uL (0-25.8)
[2021-08-04 12:45] LABS: URINE RBC 57.1 /uL (0-23.9)
[2021-08-04 12:48] LABS: URINE CRYSTALS NON SEEN /hpf
[2021-08-04 13:26] LABS: ALBUMIN 2.5 g/dl (3.4-5.0); BILIRUBIN,TOTAL 0.6 mg/dL (0.2-1); BLOOD UREA NITROGEN 8.5 mg/dL (7-18); CALCIUM 8.2 mg/dL (8.5-10.1); CREATININE 0.6 mg/dL (0.55-1.3); TOT PROT 6.1 g/dl (6.4-8.2)
[2021-08-04] MEDS: ALBUTEROL SO4 2.5/IPRATROPIUM 0.5 INH SOL 3 ML VIAL.NEB. NEB PRN (16:45)
[2021-08-04] MEDS: SENNOSIDES 8.6MG TABLET (FP) PO SCH (22:12)
[2021-08-05] MEDS ORDERED: DEXTROSE 5%-WATER - 50 ML IVPB ONE ×3 (01:50→18:30)
[2021-08-05] MEDS ORDERED: PIPERACILLIN/TAZOBACTAM 3.375 GM VIAL IVPB ONE ×3 (01:50→18:30)
[2021-08-05] MEDS: PIPERACILLIN/TAZOB 3.375 GM 3.375 GM in DEXTROSE 5%-WATER - 50 ML IVPB SCH ×3 (02:30→18:36)
[2021-08-05 08:18] LABS: HEMATOCRIT 28.3 % (32.4-45.2); HEMOGLOBIN 9.2 GM/dL (10.7-15.3); MCH 23.8 pg (25.7-33.7); MCHC 32.6 g/dl (32.0-36.0); PLATELET COUNT 230 10^3/uL (134-434); RBC 3.88 M/mm3 (3.60-5.2); RDW 20.2 % (11.6-15.6); WHITE BLOOD COUNT 8.3 K/mm3 (4.0-10.0)
[2021-08-05 08:41] LABS: CALCIUM 8.2 mg/dL (8.5-10.1)
[2021-08-05 08:42] LABS: ALBUMIN 2.4 g/dl (3.4-5.0); BLOOD UREA NITROGEN 13.2 mg/dL (7-18)
[2021-08-05 08:45] LABS: CREATININE 0.8 mg/dL (0.55-1.3)
[2021-08-05 08:47] LABS: BILIRUBIN,TOTAL 0.5 mg/dL (0.2-1); TOT PROT 6.1 g/dl (6.4-8.2)
[2021-08-05] MEDS: MEMANTINE HCL 10 MG TABLET (FP) PO SCH ×2 (09:41→21:41)
[2021-08-05] MEDS: POLYETHYLENE GLYCOL (HEALTHYLAX) 3350 17 GM PACKET PO SCH (09:41)
[2021-08-05] MEDS: FERROUS SO4 300 MG/5 ML ORAL SOLN UNIT DOSE CUPS PO SCH (09:41)
[2021-08-05] MEDS: PANTOPRAZOLE 40 MG TABLET PO SCH (09:42)
[2021-08-05] MEDS: MULTIVITAMINS (DAILY MVI) TABLET (FP) PO SCH (09:42)
[2021-08-05] MEDS: ENOXAPARIN NA (PORCINE) 40 MG/0.4 ML DISP.SYRIN SQ SCH (11:38)
[2021-08-05] MEDS: BACITRACIN/POLYMYXIN OPH OINT 3.5 GM TUBE OU SCH ×2 (11:38→21:41)
[2021-08-05] MEDS: ALBUTEROL SO4 2.5/IPRATROPIUM 0.5 INH SOL 3 ML VIAL.NEB. NEB PRN (21:03)
[2021-08-05] MEDS: SENNOSIDES 8.6MG TABLET (FP) PO SCH (21:41)
[2021-08-06] MEDS ORDERED: PIPERACILLIN/TAZOBACTAM 3.375 GM VIAL IVPB ONE ×2 (01:04→11:00)
[2021-08-06] MEDS ORDERED: DEXTROSE 5%-WATER - 50 ML IVPB ONE ×2 (01:05→11:00)
[2021-08-06] MEDS: PIPERACILLIN/TAZOB 3.375 GM 3.375 GM in DEXTROSE 5%-WATER - 50 ML IVPB SCH ×3 (01:38→19:20)
[2021-08-06 09:53] LABS: HEMOGLOBIN 9.5 GM/dL (10.7-15.3); MCH 23.1 pg (25.7-33.7); MCHC 31.7 g/dl (32.0-36.0); MEAN CELL VOLUME 72.9 fl (80-96); MEAN PLT VOLUME 9.2 fl (7.5-11.1); PLATELET COUNT 290 10^3/uL (134-434); RBC 4.12 M/mm3 (3.60-5.2); RDW 20.3 % (11.6-15.6); WHITE BLOOD COUNT 7.3 K/mm3 (4.0-10.0)
[2021-08-06 10:06] LABS: CALCIUM 8.6 mg/dL (8.5-10.1)
[2021-08-06 10:07] LABS: ALBUMIN 2.6 g/dl (3.4-5.0); BLOOD UREA NITROGEN 10.7 mg/dL (7-18); MAGNESIUM 2.3 mg/dL (1.8-2.4)
[2021-08-06 10:10] LABS: CREATININE 0.8 mg/dL (0.55-1.3); PHOSPHOROUS 3.1 mg/dL (2.5-4.9)
[2021-08-06 10:11] LABS: TOT PROT 6.6 g/dl (6.4-8.2)
[2021-08-06 10:12] LABS: BILIRUBIN,TOTAL 0.5 mg/dL (0.2-1)
[2021-08-06] MEDS: FERROUS SO4 300 MG/5 ML ORAL SOLN UNIT DOSE CUPS PO SCH (11:29)
[2021-08-06] MEDS: MULTIVITAMINS (DAILY MVI) TABLET (FP) PO SCH (11:30)
[2021-08-06] MEDS: POLYETHYLENE GLYCOL (HEALTHYLAX) 3350 17 GM PACKET PO SCH (11:30)
[2021-08-06] MEDS: PANTOPRAZOLE 40 MG TABLET PO SCH (11:30)
[2021-08-06] MEDS: BACITRACIN/POLYMYXIN OPH OINT 3.5 GM TUBE OU SCH (11:30)
[2021-08-06] MEDS: MEMANTINE HCL 10 MG TABLET (FP) PO SCH (11:32)
[2021-08-06] MEDS: ENOXAPARIN NA (PORCINE) 40 MG/0.4 ML DISP.SYRIN SQ SCH (11:37)
[2021-08-06 20:10] VITALS: BP 130/72; PULSE 98; TEMP 97.9
== END 2021-08-06 19:25 | disposition home or self-care (01) | DRG 871 ==
LOC: JER 17:40 → JERBED 07-30 01:51 → J7W 07-30 02:45
PROVIDERS: ADMIT Internal Medicine; ATTEND Internal Medicine
DX: A41.9 Sepsis, unspecified organism (principal); G93.41 Metabolic encephalopathy; J69.0 Pneumonitis due to inhalation of food and vomit; N39.0 Urinary tract infection, site not specified; E87.2 Acidosis; F03.90 Unspecified dementia, unspecified severity, without behavioral disturbance, psychotic disturbance, mood disturbance, and anxiety; I10 Essential (primary) hypertension; K21.9 Gastro-esophageal reflux disease without esophagitis; D72.829 Elevated white blood cell count, unspecified; D50.9 Iron deficiency anemia, unspecified; K44.9 Diaphragmatic hernia without obstruction or gangrene
CPT/HCPCS: 36415; 70450-TC; 71045-TC-FY; 71250-TC; 74176-TC; 74230-TC-FY; 80048; 80053; 81003; 82550; 82553; 82728; 82803; 83540; 83550; 83605; 83735; 84100; 84443; 84484; 85025; 85027; 85610; 85730; 87040; 87086; 87804; 87807; 87899; 92611-GN; 93005; 93010; 93970-TC; 94640; 94761; 97162-GP; 99285-25; C9803; U0003; U0005

== ENCOUNTER 2023-07-05 09:21 | Inpatient (IN) | payer OTHER ==
[2023-07-05] MEDS: VANCOMYCIN HCL 1,500 MG in DEXTROSE 5%-WATER - 500 ML IVPB ONE ×2 (09:35→11:40)
[2023-07-05] MEDS ORDERED: ACETAMINOPHEN 1000 MG/100 ML BAG IVPB ONE (09:35)
[2023-07-05] MEDS ORDERED: PIPERACILLIN/TAZOB 4.5 GM 4.5 GM in DEXTROSE 5%-WATER 100 ML IVPB ONE (09:35)
[2023-07-05] MEDS ORDERED: SODIUM CHLORIDE 0.9% 500 ML INFUS.BAG IV ONE ×2 (10:14→12:51)
[2023-07-05] MEDS ORDERED: ACETAMINOPHEN INJECTION 100 ML IVPB ONE (10:19)
[2023-07-05] MEDS ORDERED: PIPERACILLIN/TAZOB 4.5 GM 4.5 GM/100 ML BAG IVPB ONE (10:19)
[2023-07-05 11:04] LABS: VENOUS BASE EXCESS -0.2 mmol/L (-2-2); VENOUS O2 SATURATION 76.6 % (70-80); VENOUS PH 7.448 (7.310-7.410)
[2023-07-05 11:10] LABS: BASO % 0.2 % (0-2.0); EOS % 0.2 % (0-4.5); HEMATOCRIT 49.4 % (32.4-45.2); HEMOGLOBIN 15.5 GM/dL (10.7-15.3); MCH 26.7 pg (25.7-33.7); MCHC 31.4 g/dl (32.0-36.0); MEAN CELL VOLUME 84.9 fl (80-96); MEAN PLT VOLUME 11.1 fl (7.5-11.1); MONO % 9.3 % (3.8-10.2); NEUT % 70.3 % (42.8-82.8); PLATELET COUNT 135 10^3/uL (134-434); RBC 5.82 M/mm3 (3.60-5.2); RDW 17.2 % (11.6-15.6); WHITE BLOOD COUNT 12.2 K/mm3 (4.0-10.0)
[2023-07-05 11:14] LABS: INR 1.33 (0.83-1.09); PROTHROMBIN TIME (PATIENT) 15.4 SEC (9.7-13.0)
[2023-07-05 11:17] LABS: ACTIVATED PTT 27.7 SECONDS (25.2-36.5)
[2023-07-05 11:24] LABS: EPI CELLS 10 /uL (0-25.1); HYALINE CASTS 4 /uL (0-3.1); PH,URINE 7.5 (5.0-8.0); URINE APPEARANCE CLOUDY; URINE BACTERIA >9,000 /uL (0-1359); URINE BILIRUBIN 1+ (NEGATIVE); URINE COLOR DK YELLOW; URINE GLUCOSE (UA) NEGATIVE (NEGATIVE); URINE KETONE TRACE (NEGATIVE); URINE LEUK ESTERASE 2+ (NEGATIVE); URINE NITRITE NEGATIVE (NEGATIVE); URINE PROTEIN 2+ (NEGATIVE); URINE RBC 2 /uL (0-23.9); URINE WBC 425 /uL (0-25.8)
[2023-07-05 11:25] LABS: POTASSIUM 3.8 mmol/L (3.5-5.1)
[2023-07-05 11:26] LABS: CALCIUM 9.6 mg/dL (8.5-10.1)
[2023-07-05 11:28] LABS: BLOOD UREA NITROGEN 42.6 mg/dL (7-18)
[2023-07-05 11:30] LABS: CREATININE 1.4 mg/dL (0.55-1.3)
[2023-07-05 11:33] LABS: TOT PROT 7.8 g/dl (6.4-8.2)
[2023-07-05] MEDS ORDERED: VANCOMYCIN PREMIX 1.5 GM 1,500 MG/300 ML BAG IVPB ONE (12:00)
[2023-07-05] MEDS ORDERED: SODIUM CHLORIDE 1,000 ML IV STA (14:59)
[2023-07-05] MEDS ORDERED: CEFTRIAXONE 1 GM in DEXTROSE 5%-WATER - 50 ML IVPB ONE ×2 (15:15→16:45)
[2023-07-05] MEDS: DEXTROSE 5%-WATER - 1,000 ML IV SCH (15:43)
[2023-07-05 15:52] VITALS: BMI 25.9
[2023-07-05 17:18] LABS: BILIRUBIN,DIRECT 0.8 mg/dL (0.0-0.2)
[2023-07-05] MEDS ORDERED: HEPARIN NA (PORCINE) 5,000 UNITS/ML 1ML VIAL SQ SCH (22:00)
[2023-07-05] MEDS: HEPARIN NA (PORCINE) 5,000 UNITS/ML 1ML VIAL SQ SCH (22:06)
[2023-07-05] MEDS: MEMANTINE HCL 10 MG TABLET (FP) PO SCH (22:07)
[2023-07-06] MEDS: DEXTROSE 5%-WATER - 1,000 ML IV SCH ×2 (06:48→16:17)
[2023-07-06] MEDS ORDERED: PANTOPRAZOLE 40 MG TABLET PO SCH (10:00)
[2023-07-06] MEDS: HEPARIN NA (PORCINE) 5,000 UNITS/ML 1ML VIAL SQ SCH ×2 (10:15→21:18)
[2023-07-06 10:25] LABS: BASO % 0.3 % (0-2.0); EOS % 1.3 % (0-4.5); HEMATOCRIT 42.3 % (32.4-45.2); HEMOGLOBIN 13.9 GM/dL (10.7-15.3); LYMPH % 20.5 % (8-40); MCH 27.5 pg (25.7-33.7); MCHC 32.8 g/dl (32.0-36.0); MEAN CELL VOLUME 83.9 fl (80-96); MEAN PLT VOLUME 10.8 fl (7.5-11.1); MONO % 6.2 % (3.8-10.2); NEUT % 71.7 % (42.8-82.8); PLATELET COUNT 125 10^3/uL (134-434); RBC 5.04 M/mm3 (3.60-5.2); WHITE BLOOD COUNT 10.4 K/mm3 (4.0-10.0)
[2023-07-06 10:31] LABS: POTASSIUM 3.8 mmol/L (3.5-5.1)
[2023-07-06 10:37] LABS: CALCIUM 8.5 mg/dL (8.5-10.1)
[2023-07-06 10:38] LABS: ALBUMIN 2.7 g/dl (3.4-5.0); BLOOD UREA NITROGEN 29.9 mg/dL (7-18)
[2023-07-06 10:40] LABS: MAGNESIUM 2.3 mg/dL (1.8-2.4); PHOSPHOROUS 2.7 mg/dL (2.5-4.9); TOT PROT 6.9 g/dl (6.4-8.2)
[2023-07-06] MEDS: MEMANTINE HCL 10 MG TABLET (FP) PO SCH ×2 (13:36→21:18)
[2023-07-06] MEDS: POLYETHYLENE GLYCOL (HEALTHYLAX) 3350 17 GM PACKET PO SCH (13:36)
[2023-07-06] MEDS: CEFTRIAXONE 1 GM in DEXTROSE 5%-WATER - 50 ML IVPB SCH (15:41)
[2023-07-06] MEDS ORDERED: DEXTROSE 5%-WATER 500 ML PVC-FREE INFUS.BAG IV SCH (15:45)
[2023-07-06] MEDS ORDERED: DEXTROSE 5%-WATER - 1,000 ML IV SCH (16:00)
[2023-07-06] MEDS ORDERED: ARTIFICIAL TEARS OPHTHALMIC DROPS OU PRN (17:42)
[2023-07-06] MEDS: ACETAMINOPHEN 1000 MG/100 ML BAG IVPB SCH (17:42)
[2023-07-06] MEDS ORDERED: DEXTROSE 5%-WATER - 1,000 ML with POTASSIUM CHLORIDE 10 MEQ IV SCH ×2 (23:36→23:39)
[2023-07-07] MEDS: ACETAMINOPHEN 1000 MG/100 ML BAG IVPB SCH ×2 (00:35→08:37)
[2023-07-07] MEDS: HEPARIN NA (PORCINE) 5,000 UNITS/ML 1ML VIAL SQ SCH ×3 (05:42→21:10)
[2023-07-07] MEDS ORDERED: PANTOPRAZOLE SODIUM 40 MG VIAL IVPUSH SCH (10:00)
[2023-07-07 10:25] LABS: BASO % 0.2 % (0-2.0); EOS % 1.5 % (0-4.5); HEMOGLOBIN 13.4 GM/dL (10.7-15.3); LYMPH % 25.9 % (8-40); MCH 27.2 pg (25.7-33.7); MCHC 31.9 g/dl (32.0-36.0); MEAN CELL VOLUME 85.1 fl (80-96); MEAN PLT VOLUME 12.2 fl (7.5-11.1); MONO % 7.1 % (3.8-10.2); NEUT % 65.3 % (42.8-82.8); PLATELET COUNT 130 10^3/uL (134-434); RBC 4.94 M/mm3 (3.60-5.2); RDW 17.4 % (11.6-15.6); WHITE BLOOD COUNT 9.9 K/mm3 (4.0-10.0)
[2023-07-07] MEDS: CEFTRIAXONE 1 GM in DEXTROSE 5%-WATER - 50 ML IVPB SCH (10:40)
[2023-07-07] MEDS: MEMANTINE HCL 10 MG TABLET (FP) PO SCH ×2 (10:40→21:10)
[2023-07-07 10:45] LABS: POTASSIUM 3.4 mmol/L (3.5-5.1)
[2023-07-07 10:56] LABS: BLOOD UREA NITROGEN 26.4 mg/dL (7-18)
[2023-07-07 10:57] LABS: ALBUMIN 2.5 g/dl (3.4-5.0); CALCIUM 8.6 mg/dL (8.5-10.1); MAGNESIUM 2.5 mg/dL (1.8-2.4)
[2023-07-07 10:58] LABS: CREATININE 0.9 mg/dL (0.55-1.3)
[2023-07-07 10:59] LABS: BILIRUBIN,TOTAL 0.8 mg/dL (0.2-1); TOT PROT 6.6 g/dl (6.4-8.2)
[2023-07-07] MEDS: POLYETHYLENE GLYCOL (HEALTHYLAX) 3350 17 GM PACKET PO SCH (11:53)
[2023-07-07] MEDS: KCL 10 MEQ IVPB 10 MEQ/100 ML INFUS.BAG IVPB SCH ×2 (11:53→18:54)
[2023-07-07] MEDS: D5-1/2NS+20 MEQ KCL - 20 MEQ/1,000 ML INFUS.BAG IV SCH (11:53)
[2023-07-08] MEDS: D5-1/2NS+20 MEQ KCL - 20 MEQ/1,000 ML INFUS.BAG IV SCH ×2 (01:58→12:55)
[2023-07-08] MEDS: HEPARIN NA (PORCINE) 5,000 UNITS/ML 1ML VIAL SQ SCH ×3 (06:19→21:20)
[2023-07-08 09:13] LABS: BASO % 0.2 % (0-2.0); EOS % 1.5 % (0-4.5); HEMATOCRIT 38.4 % (32.4-45.2); HEMOGLOBIN 12.6 GM/dL (10.7-15.3); LYMPH % 25.5 % (8-40); MCH 27.2 pg (25.7-33.7); MCHC 32.8 g/dl (32.0-36.0); MEAN CELL VOLUME 82.9 fl (80-96); MONO % 6.3 % (3.8-10.2); NEUT % 66.5 % (42.8-82.8); PLATELET COUNT 151 10^3/uL (134-434); RBC 4.63 M/mm3 (3.60-5.2)
[2023-07-08 09:32] LABS: POTASSIUM 3.5 mmol/L (3.5-5.1)
[2023-07-08 09:51] LABS: CALCIUM 8.4 mg/dL (8.5-10.1)
[2023-07-08 09:52] LABS: ALBUMIN 2.3 g/dl (3.4-5.0); BLOOD UREA NITROGEN 15.9 mg/dL (7-18); MAGNESIUM 2.2 mg/dL (1.8-2.4)
[2023-07-08 09:55] LABS: CREATININE 0.7 mg/dL (0.55-1.3)
[2023-07-08 09:56] LABS: BILIRUBIN,TOTAL 0.6 mg/dL (0.2-1)
[2023-07-08 09:57] LABS: TOT PROT 6.2 g/dl (6.4-8.2)
[2023-07-08] MEDS: MEMANTINE HCL 10 MG TABLET (FP) PO SCH ×2 (10:32→21:20)
[2023-07-08] MEDS: POLYETHYLENE GLYCOL (HEALTHYLAX) 3350 17 GM PACKET PO SCH (10:32)
[2023-07-08] MEDS: PANTOPRAZOLE 40 MG TABLET PO SCH (10:32)
[2023-07-09] MEDS: D5-1/2NS+20 MEQ KCL - 20 MEQ/1,000 ML INFUS.BAG IV SCH (01:41)
[2023-07-09] MEDS: HEPARIN NA (PORCINE) 5,000 UNITS/ML 1ML VIAL SQ SCH ×3 (06:33→22:11)
[2023-07-09 08:59] LABS: BASO % 0.3 % (0-2.0); EOS % 1.8 % (0-4.5); HEMATOCRIT 36.2 % (32.4-45.2); HEMOGLOBIN 11.8 GM/dL (10.7-15.3); LYMPH % 24.5 % (8-40); MCH 27.3 pg (25.7-33.7); MCHC 32.6 g/dl (32.0-36.0); MEAN CELL VOLUME 83.5 fl (80-96); MEAN PLT VOLUME 10.8 fl (7.5-11.1); MONO % 7.5 % (3.8-10.2); NEUT % 65.9 % (42.8-82.8); PLATELET COUNT 157 10^3/uL (134-434); RBC 4.34 M/mm3 (3.60-5.2); RDW 16.5 % (11.6-15.6); WHITE BLOOD COUNT 8.2 K/mm3 (4.0-10.0)
[2023-07-09 09:07] LABS: ALBUMIN 2.1 g/dl (3.4-5.0); MAGNESIUM 2.1 mg/dL (1.8-2.4)
[2023-07-09 09:08] LABS: BLOOD UREA NITROGEN 10.7 mg/dL (7-18)
[2023-07-09 09:12] LABS: BILIRUBIN,TOTAL 0.5 mg/dL (0.2-1); CREATININE 0.7 mg/dL (0.55-1.3)
[2023-07-09 09:14] LABS: TOT PROT 5.6 g/dl (6.4-8.2)
[2023-07-09] MEDS: POLYETHYLENE GLYCOL (HEALTHYLAX) 3350 17 GM PACKET PO SCH (11:20)
[2023-07-09] MEDS: MEMANTINE HCL 10 MG TABLET (FP) PO SCH ×3 (11:20→22:19)
[2023-07-09] MEDS: PANTOPRAZOLE 40 MG TABLET PO SCH (11:20)
[2023-07-09] MEDS ORDERED: LACTATED RINGERS SOLUTION 1,000 ML/1,000 ML INFUS.BAG IV STA ×3 (15:57→22:47)
[2023-07-09] MEDS ORDERED: ACETAMINOPHEN 1000 MG/100 ML BAG IVPB ONE (15:57)
[2023-07-09] MEDS ORDERED: LACTATED RINGERS SOLUTION 1000 ML INFUS.BAG IV ONE (22:44)
[2023-07-10 00:51] LABS: EPI CELLS >36 /uL (0-25.1); HYALINE CASTS 5 /uL (0-3.1); PH,URINE 5.5 (5.0-8.0); URINE APPEARANCE CLEAR; URINE BACTERIA 8 /uL (0-1359); URINE BILIRUBIN NEGATIVE (NEGATIVE); URINE COLOR YELLOW; URINE GLUCOSE (UA) NEGATIVE (NEGATIVE); URINE KETONE NEGATIVE (NEGATIVE); URINE LEUK ESTERASE 1+ (NEGATIVE); URINE NITRITE NEGATIVE (NEGATIVE); URINE PROTEIN NEGATIVE (NEGATIVE); URINE RBC 19 /uL (0-23.9); URINE WBC 269 /uL (0-25.8)
[2023-07-10] MEDS: HEPARIN NA (PORCINE) 5,000 UNITS/ML 1ML VIAL SQ SCH ×3 (05:18→21:37)
[2023-07-10 09:39] LABS: BASO % 0.3 % (0-2.0); EOS % 1.7 % (0-4.5); HEMATOCRIT 34.3 % (32.4-45.2); LYMPH % 24.3 % (8-40); MCH 26.9 pg (25.7-33.7); MCHC 32.1 g/dl (32.0-36.0); MEAN CELL VOLUME 83.7 fl (80-96); MEAN PLT VOLUME 10.6 fl (7.5-11.1); MONO % 7.3 % (3.8-10.2); NEUT % 66.4 % (42.8-82.8); PLATELET COUNT 165 10^3/uL (134-434); RBC 4.09 M/mm3 (3.60-5.2); WHITE BLOOD COUNT 8.2 K/mm3 (4.0-10.0)
[2023-07-10 09:54] LABS: POTASSIUM 3.9 mmol/L (3.5-5.1)
[2023-07-10 10:10] LABS: ALBUMIN 2.1 g/dl (3.4-5.0); BLOOD UREA NITROGEN 8.5 mg/dL (7-18); CALCIUM 8.8 mg/dL (8.5-10.1)
[2023-07-10 10:12] LABS: MAGNESIUM 1.9 mg/dL (1.8-2.4)
[2023-07-10 10:13] LABS: CREATININE 0.6 mg/dL (0.55-1.3)
[2023-07-10 10:15] LABS: BILIRUBIN,TOTAL 0.6 mg/dL (0.2-1); TOT PROT 5.4 g/dl (6.4-8.2)
[2023-07-10] MEDS: POLYETHYLENE GLYCOL (HEALTHYLAX) 3350 17 GM PACKET PO SCH (11:02)
[2023-07-10] MEDS: PANTOPRAZOLE 40 MG TABLET PO SCH (11:03)
[2023-07-10] MEDS: MEMANTINE HCL 10 MG TABLET (FP) PO SCH ×2 (11:05→21:37)
[2023-07-10] MEDS: PIPERACILLIN/TAZOB 3.375 GM 3.375 GM in DEXTROSE 5%-WATER - 50 ML IVPB SCH ×2 (11:08→17:31)
[2023-07-10] MEDS ORDERED: LACTATED RINGERS SOLUTION 1,000 ML/1,000 ML INFUS.BAG IV SCH (11:15)
[2023-07-10] MEDS ORDERED: ACETAMINOPHEN 1000 MG/100 ML BAG IVPB PRN (11:22)
[2023-07-10] MEDS ORDERED: DEXTROSE 5%-0.45% SALINE 1,000 ML IV SCH (15:45)
[2023-07-11] MEDS: PIPERACILLIN/TAZOB 3.375 GM 3.375 GM in DEXTROSE 5%-WATER - 50 ML IVPB SCH ×3 (01:10→17:27)
[2023-07-11] MEDS: HEPARIN NA (PORCINE) 5,000 UNITS/ML 1ML VIAL SQ SCH ×3 (06:07→22:28)
[2023-07-11 09:21] LABS: BASO % 0.2 % (0-2.0); HEMATOCRIT 35.7 % (32.4-45.2); HEMOGLOBIN 11.7 GM/dL (10.7-15.3); LYMPH % 22.4 % (8-40); MCHC 32.6 g/dl (32.0-36.0); MEAN CELL VOLUME 82.8 fl (80-96); MONO % 7.1 % (3.8-10.2); NEUT % 69.3 % (42.8-82.8); PLATELET COUNT 212 10^3/uL (134-434); RBC 4.32 M/mm3 (3.60-5.2); RDW 16.4 % (11.6-15.6); WHITE BLOOD COUNT 8.9 K/mm3 (4.0-10.0)
[2023-07-11 09:31] VITALS: RESP 18
[2023-07-11 09:37] LABS: POTASSIUM 3.9 mmol/L (3.5-5.1)
[2023-07-11 09:42] LABS: CALCIUM 8.2 mg/dL (8.5-10.1)
[2023-07-11 09:43] LABS: ALBUMIN 2.1 g/dl (3.4-5.0); BLOOD UREA NITROGEN 7.7 mg/dL (7-18); MAGNESIUM 2.1 mg/dL (1.8-2.4)
[2023-07-11 09:45] LABS: CREATININE 0.7 mg/dL (0.55-1.3)
[2023-07-11 09:47] LABS: BILIRUBIN,TOTAL 0.6 mg/dL (0.2-1)
[2023-07-11 09:50] LABS: TOT PROT 5.8 g/dl (6.4-8.2)
[2023-07-11] MEDS: POLYETHYLENE GLYCOL (HEALTHYLAX) 3350 17 GM PACKET PO SCH (10:10)
[2023-07-11] MEDS: MEMANTINE HCL 10 MG TABLET (FP) PO SCH ×2 (10:11→22:28)
[2023-07-11] MEDS: PANTOPRAZOLE 40 MG TABLET PO SCH (10:11)
[2023-07-12] MEDS: PIPERACILLIN/TAZOB 3.375 GM 3.375 GM in DEXTROSE 5%-WATER - 50 ML IVPB SCH ×2 (01:53→10:43)
[2023-07-12] MEDS: HEPARIN NA (PORCINE) 5,000 UNITS/ML 1ML VIAL SQ SCH (05:03)
[2023-07-12 07:16] VITALS: BP 131/66; PULSE 91; TEMP 99.5
[2023-07-12 08:28] LABS: BASO % 0.3 % (0-2.0); EOS % 1.8 % (0-4.5); HEMATOCRIT 34.2 % (32.4-45.2); HEMOGLOBIN 11.3 GM/dL (10.7-15.3); LYMPH % 27.2 % (8-40); MCH 27.2 pg (25.7-33.7); MCHC 33.2 g/dl (32.0-36.0); MEAN PLT VOLUME 9.9 fl (7.5-11.1); MONO % 9.9 % (3.8-10.2); NEUT % 60.8 % (42.8-82.8); PLATELET COUNT 251 10^3/uL (134-434); RBC 4.16 M/mm3 (3.60-5.2); RDW 17.1 % (11.6-15.6); WHITE BLOOD COUNT 7.7 K/mm3 (4.0-10.0)
[2023-07-12 08:47] LABS: POTASSIUM 3.8 mmol/L (3.5-5.1)
[2023-07-12 08:49] LABS: CALCIUM 8.4 mg/dL (8.5-10.1)
[2023-07-12 08:50] LABS: BLOOD UREA NITROGEN 7.8 mg/dL (7-18)
[2023-07-12 08:53] LABS: CREATININE 0.7 mg/dL (0.55-1.3)
[2023-07-12] MEDS ORDERED: MULTIVITAMINS (DAILY MVI) TABLET (FP) PO SCH (10:00)
[2023-07-12] MEDS: POLYETHYLENE GLYCOL (HEALTHYLAX) 3350 17 GM PACKET PO SCH (10:44)
[2023-07-12] MEDS: ZINC SULFATE 220 MG CAPSULE (FP) PO SCH ×2 (10:44→11:44)
[2023-07-12] MEDS: PANTOPRAZOLE 40 MG TABLET PO SCH ×2 (10:44→11:44)
[2023-07-12] MEDS: MEMANTINE HCL 10 MG TABLET (FP) PO SCH ×2 (10:44→11:43)
[2023-07-12] MEDS: ASCORBIC ACID 250 MG TABLET (FP) PO SCH ×2 (10:45→11:43)
== END 2023-07-12 12:55 | disposition home health service (06) | DRG 871 ==
LOC: JER 09:21 → JERBED 12:00 → J7W 15:13
PROVIDERS: ADMIT Internal Medicine; ATTEND Nurse Practitioner
DX: A41.89 Other specified sepsis (principal); G93.41 Metabolic encephalopathy; R53.2 Functional quadriplegia; N17.9 Acute kidney failure, unspecified; E87.0 Hyperosmolality and hypernatremia; N39.0 Urinary tract infection, site not specified; F03.90 Unspecified dementia, unspecified severity, without behavioral disturbance, psychotic disturbance, mood disturbance, and anxiety; I10 Essential (primary) hypertension; E78.5 Hyperlipidemia, unspecified; K21.9 Gastro-esophageal reflux disease without esophagitis; R50.9 Fever, unspecified; E86.0 Dehydration; L89.152 Pressure ulcer of sacral region, stage 2
CPT/HCPCS: 0241U-QW; 36415; 70450-TC; 71045-TC-FY; 76705-TC; 80048; 80053; 81003; 82248; 82803; 83605; 83735; 84100; 84484; 85025; 85610; 85730; 86850; 86900; 86901; 87040; 87086; 93005; 93010; 93971; 99285-25; J1644